=== PATIENT | female | born 1955 | race Caucasian/White ===

== ENCOUNTER 2023-01-18 09:30 | Outpatient (OUT) | payer OTHER, SELFPAY ==
--- NOTE | 2023-01-18 09:35 | CT_ITS ---
[address] [address] Patient Name: CHYNA NUR MRN: [id number] date: 1955 Sex: F Assigned Patient Location: CT Current Patient Location: CT Accession/Order Number: [id number] Exam Date: 01/18/2023 09:47 Report Date: 01/18/2023 10:57 At the request of: JOY STOLL Procedure: CT lung screening low-dose EXAMINATION: CT lung screening low-dose HISTORY: Nicotine dependence F17.210 COMPARISON: No relevant comparison available. TECHNIQUE: Axial, Coronal, and Sagittal images were created without the administration of IV contrast material. Dose reduction techniques were achieved by using automated exposure control and/or adjustment of mA and/or kV according to patient size and/or use of iterative reconstruction technique. FINDINGS: LUNGS: A few 3-4 mm nodules scattered within the lungs. Largest nodule is within superior aspect of left lower lobe, 5 mm. Minimal emphysematous changes. PLEURA: No mass, effusion, or pneumothorax. VASCULATURE: No abnormality. ANTONIA: No mass or pathologic adenopathy. MEDIASTINUM: No mass or pathologic adenopathy. CARDIAC: No enlargement, pericardial thickening, or significant calcification. AORTA: No aneurysm or dissection. CHEST WALL: No mass or axillary adenopathy BONES: No bone lesion or fracture. LIMITED ABDOMEN: No suspicious findings. Limited images of the upper abdomen. OTHER: Negative. IMPRESSION: 1. Lung-RADS Category 3- Probably benign. Probably benign finding(s)- short term follow up suggested; includes nodules with a low likelihood of becoming a clinically active cancer. Six month LDCT. Electronically authenticated by: RO ASHRAF Date: 01/18/2023 10:57
--- NOTE | 2023-01-18 09:35 | MM_ITS ---
Patient: CHYNA NUR Exam Date: 01/18/2023 : 1955 Gender:F Ordering : DR Patricia Perla M.D. Admission #: [id number] Family : Order #: [id number] CLICK HERE TO VIEW EXAM RADIOLOGY REPORT PROCEDURE: MM TOMOSYNTHESIS SCREENING BI COMPARISON: MAMMO SCREEN DIG LILLY, 07/13/2011. INDICATIONS: Screening mammogram Z12.31 Calculator Name NCI Breast Cancer Risk Assessment Tool 5 Year Breast Cancer Risk 1.40% Lifetime Breast Cancer Risk 4.90% Personal Breast Cancer No Personal Ovarian Cancer No Treatments None Family Cancers Sister with bone cancer at age 42. LOCATION: [facility] BREAST COMPOSITION: Heterogeneously dense,which may obscure small masses. FINDINGS: DIAGNOSTIC CATEGORY 1--NEGATIVE. RIGHT BREAST: No significant suspicious finding. No significant change has occurred. LEFT BREAST: No significant suspicious finding. No significant change has occurred. RECOMMENDATIONS: ROUTINE MAMMOGRAM AND CLINICAL EVALUATION IN 12 MONTHS. PLEASE NOTE: A NORMAL MAMMOGRAM DOES NOT EXCLUDE THE POSSIBILITY OF BREAST CANCER. A CLINICALLY SUSPICIOUS PALPABLE LUMP SHOULD BE BIOPSIED. Dictated by: Eduardo Esteban M.D. on 01/18/2023 at 15:08 Approved by: Eduardo Esteban M.D. on 01/18/2023 at 15:11
== END 2023-01-18 09:31 ==
LOC: CT 09:31
PROVIDERS: PCP Family Medicine; Visit Provider Family Medicine
DX: Z12.31 Encounter for screening mammogram for malignant neoplasm of breast (principal); F17.210 Nicotine dependence, cigarettes, uncomplicated; Z80.8 Family history of malignant neoplasm of other organs or systems
CPT/HCPCS: 71271; 77063; 77067

== ENCOUNTER 2023-05-04 11:43 | Outpatient (OUT) | payer OTHER, SELFPAY ==
[2023-05-04 12:07] LABS: SARS-CoV-2 Ag NEGATIVE (NEGATIVE)
[2023-05-04 15:09] LABS: SARS-CoV-2 NAA NOT DETECTED (NOT DETECTE)
== END 2023-05-04 11:44 | disposition home or self-care (01) ==
LOC: LAB 11:43
PROVIDERS: PCP Family Medicine; Visit Provider Family Medicine
DX: Z20.822 Contact with and (suspected) exposure to COVID-19 (principal)
CPT/HCPCS: 87635; 87811; U0003

== ENCOUNTER 2024-03-25 14:10 | Emergency (ER) | payer OTHER, SELFPAY ==
[2024-03-25 14:14] VITALS: BP 147/85; PULSE 104; TEMP 36.7; O2SAT 94; BMI 32.3
--- NOTE | 2024-03-25 14:23 | XR_ITS ---
The [address] [address] Patient Name: CHYNA NUR MRN: [id number] date: 1955 Sex: F Assigned Patient Location: ER Current Patient Location: ED.MAIN Accession/Order Number: [id number] Exam Date: 03/25/2024 14:40 Report Date: 03/25/2024 16:05 At the request of: RENETTA CRANE Procedure: XR wrist LT min 3V PROCEDURE: XR hand LT min 3V, XR wrist LT min 3V, XR forearm LT 2V COMPARISON: None. HISTORY: fall FINDINGS: BONES:Transverse extra-articular fracture proximal the proximal metaphysis of the second metacarpal with radial displacement of the diaphysis 3 mm in relation to the base. SOFT TISSUES:Negative. No visible soft tissue swelling. EFFUSION:None visible. OTHER: Negative. XR/XR wrist LT min 3V IMPRESSION: Acute displaced extra-articular fracture base of the second metacarpal No acute fracture of the forearm or carpal bones Electronically authenticated by: LISBETH ZHANG Date: 03/25/2024 16:05
--- NOTE | 2024-03-25 14:23 | XR_ITS ---
The [address] [address] Patient Name: CHYNA NUR MRN: [id number] date: 1955 Sex: F Assigned Patient Location: ER Current Patient Location: ED.MAIN Accession/Order Number: [id number] Exam Date: 03/25/2024 14:40 Report Date: 03/25/2024 16:05 At the request of: RENETTA CRANE Procedure: XR hand LT min 3V PROCEDURE: XR hand LT min 3V, XR wrist LT min 3V, XR forearm LT 2V COMPARISON: None. HISTORY: fall FINDINGS: BONES:Transverse extra-articular fracture proximal the proximal metaphysis of the second metacarpal with radial displacement of the diaphysis 3 mm in relation to the base. SOFT TISSUES:Negative. No visible soft tissue swelling. EFFUSION:None visible. OTHER: Negative. XR/XR hand LT min 3V IMPRESSION: Acute displaced extra-articular fracture base of the second metacarpal No acute fracture of the forearm or carpal bones Electronically authenticated by: LISBETH ZHANG Date: 03/25/2024 16:05
--- NOTE | 2024-03-25 14:23 | XR_ITS ---
The [address] [address] Patient Name: CHYNA NUR MRN: [id number] date: 1955 Sex: F Assigned Patient Location: ER Current Patient Location: ED.MAIN Accession/Order Number: [id number] Exam Date: 03/25/2024 14:40 Report Date: 03/25/2024 16:05 At the request of: RENETTA CRANE Procedure: XR forearm LT 2V PROCEDURE: XR hand LT min 3V, XR wrist LT min 3V, XR forearm LT 2V COMPARISON: None. HISTORY: fall FINDINGS: BONES:Transverse extra-articular fracture proximal the proximal metaphysis of the second metacarpal with radial displacement of the diaphysis 3 mm in relation to the base. SOFT TISSUES:Negative. No visible soft tissue swelling. EFFUSION:None visible. OTHER: Negative. XR/XR forearm LT 2V IMPRESSION: Acute displaced extra-articular fracture base of the second metacarpal No acute fracture of the forearm or carpal bones Electronically authenticated by: LISBETH ZHANG Date: 03/25/2024 16:05
--- NOTE | 2024-03-25 15:24 | ED.GENADUL1 ---
HPI HPI - General Adult General Chief complaint: Extremity Injury, Upper Stated complaint: FALL SWOLLEN HAND Time Seen by Provider: 03/25/24 14:21 History of Present Illness HPI narrative: The patient is coming today after she fell almost 2 days ago on her outstretched hand complaining of left hand pain, that she took a Percocet before arrival and she does not have a lot of pain right now Patient also have extensive swelling and she feels that the pain going up her arm not only in her hand Related Data Previous Rx's ?Medication ?Instructions ?Recorded diclofenac sodium 50 mg 50 mg PO Q12H PRN PAIN #14 tabs 03/25/24 tablet,delayed release Allergies Allergy/AdvReac Type Severity Reaction Status Date / Time Sulfa (Sulfonamide Allergy Severe tongue Verified 03/25/24 14:14 Antibiotics) swelling Opioid HPI Opioid Management Most Recent Opioid Data: No Data to Display Review of Systems ROS Status of ROS 10 or more systems reviewed and unremarkable except as noted in history and below Exam Narrative Exam Narrative: Nurses notes and vital signs reviewed and patient is not hypoxic. General: Well-appearing and in no apparent distress. Skin: Warm, dry, no pallor noted. No rash. Head: Normocephalic, atraumatic. Neck: Supple, non-tender. Eye: Pupils are equal, round and EOMI. No scleral icterus. Ears, Nose, Mouth, and Throat: TM are clear, no nasal mucosal hypertrophy. Oral mucosa is moist, no posterior oropharynx erythema, uvula is mid-line Cardiovascular: Regular Rate and Rhythm without murmur, gallop or rub. Respiratory: No accessory muscle use or respiratory distress. Lungs are clear to auscultation, no wheezing, rales or rhonchi Chest Wall: no tenderness Back: No midline thoracic or lumbar vertebral tenderness. No CVA tenderness Musculoskeletal: normal ROM, there is extensive edema of the left hand no tenderness upon palpation of the forearm and wrist, but the patient have swelling up to her fingers in addition to an ecchymosis just by the medial aspect of her thumb, there is no open wounds and the patient have no vascular injury detected within normal capillary refill GI: Abdomen is soft, non-distended. Normal bowel sounds. No masses appreciated. No tenderness to palpation. No rebound, guarding, or rigidity noted. Neurological: A&O x4. No cranial nerve dysfunction observed. No truncal ataxia. Moves all extremities. Sensation intact. Psychiatric: Cooperative and interactive. Normal mood and affect. Constitutional Vital Signs, click to edit/add: Last Vital Signs Temp 98.1 F 03/25/24 14:14 Pulse 104 H 03/25/24 14:14 Resp 20 03/25/24 14:14 BP 147/85 H 03/25/24 14:14 Pulse Ox 94 L 03/25/24 14:14 O2 Del Method Room Air 03/25/24 14:14 Course Vital Signs Vital signs: Vital Signs Temperature 98.1 F 03/25/24 14:14 Pulse Rate 104 H 03/25/24 14:14 Respiratory Rate 03/25/24 14:14 Blood Pressure 147/85 H 03/25/24 14:14 Pulse Oximetry 94 L 03/25/24 14:14 Oxygen Delivery Method Room Air 03/25/24 14:14 Temperature 98.1 F 03/25/24 14:14 Pulse Rate 104 H 03/25/24 14:14 Respiratory Rate 03/25/24 14:14 Blood Pressure 147/85 H 03/25/24 14:14 Pulse Oximetry 94 L 03/25/24 14:14 Oxygen Delivery Method Room Air 03/25/24 14:14 Medical Decision Making MDM Narrative Medical decision making narrative: The patient x-ray shows obvious fracture of the second metacarpal base with a obvious displacement The patient case was discussed with Dr. Hickman she will mostly need surgery and right now put her in a volar splint and sling and she was discharged home with Juan to continue using her oxycodone at home and follow-up with Dr. Hickman as outpatient Elevation and rest The patient is to follow up with primary care physician in next 2-3 days or to return to the emergency department should any of the signs or symptoms worsen or new symptoms develop. The patient agrees with the following Diagnosis and Treatment plan and the patient will be discharged home. Discharge Plan Discharge Stand Alone Forms: Work/School Release, Portal Instructions Chief Complaint: Extremity Injury, Upper Clinical Impression: Fracture of metacarpal Qualifiers: Encounter type: initial encounter Metacarpal bone: second Fracture type: closed Metacarpal location: base Fracture alignment: displaced Laterality: left Qualified Code(s): S62.311A - Displaced fracture of base of second metacarpal bone, left hand, initial encounter for closed fracture Patient Disposition: Home, Self-Care Time of Disposition Decision: 16:22 Condition: Good Prescriptions / Home Meds: New diclofenac sodium 50 mg tablet,delayed release (DR/EC) 50 mg PO Q12H PRN (Reason: PAIN ) Qty: 14 0RF Print Language: Citizen Of [place] Instructions: Hand Fracture (DC), Splint Care (ED) Referrals: Eduardo Hickman MD [Physician] - As soon as possible BARRON LIVE [Primary Care Provider] - 1 week
[2024-03-25] MEDS: KETOROLAC TROMETHAMINE 30 MG/ML VIAL IM (16:39)
[2024-03-25 16:41] VITALS: BP 127/76; PULSE 92; O2SAT 94
== END 2024-03-25 16:44 | disposition home or self-care (01) ==
PROVIDERS: Emergency Provider Emergency Medicine; PCP Family Medicine
DX: S62.311A Displaced fracture of base of second metacarpal bone, left hand, initial encounter for closed fracture (principal); W19.XXXA Unspecified fall, initial encounter
CPT/HCPCS: 29125; 73090; 73110; 73130; 96372; 99285; J1885

== ENCOUNTER 2024-03-29 13:03 | Outpatient (OUT) | payer OTHER, SELFPAY ==
--- OUTSIDE RECORDS SUMMARY | 2024-03-29 13:24 | XMS_ITS | CCD ---
Author Organization [facility] Care Team Providers Care Cloth Burler Name Role Phone DR PATRICIA PERLA Admitting Unavailable DODIE, DR PATRICAI Carlson Attending Unavailable DR PATRICIA PERLA Primary Care Unavailable WEST, DR LISBETH Parrish Consulting Unavailable DODIE, DR PATRICIA Carlson Consulting Unavailable Patricia Perla Tiffany Núñez Attending Unavailable Tiffany Núñez Attending Unavailable Tiffany Núñez Attending Unavailable Allergies Allergy Classification Reported Allergen(s) Allergy Type Date of Onset Reaction(s) Facility (1 source) Sulfonamides (Antibiotic) Drug allergy (disorder) 02-01-20 21 [facility] (6 sources) Clarithromycin Drug Allergy 12-04-19 24 Unknown, Unknown Reaction [facility] (18 sources) Nitrofurantoin Drug Allergy 12-04-19 24 Unknown, Unknown Reaction [facility] (17 sources) Sulfacetamide / Sulfur Drug Allergy Unknown [facility] Other (17 sources) Substance with sulfonamide structure and antibacterial mechanism of action (substance) Drug allergy Unknown [facility] Other (14 sources) Sulfamethoxazole / Trimethoprim Drug Allergy 04-08-20 13 Unknown [facility] Other (2 sources) Allergies Reconciled Propensity to adverse reactions Unknown [facility] Other (14 sources) Biaxin *MACROLIDES* Propensity to adverse reactions 08-16-19 17 Unknown [facility] Other (2 sources) patient allergy list reviewed by nurse or physicia Propensity to adverse reactions 11-30-19 19 Comment:Done [facility] Other (1 source) Sulfacetamide Drug Allergy 12-04-19 24 Unknown Reaction [facility] (1 source) Sulfamethoxazole Drug Allergy 12-04-19 24 Unknown Reaction [facility] (1 source) Sulfonamides (Antibiotic) Allergy to substance 12-04-19 Unknown Reaction [facility] (1 source) Sulfur Drug Allergy 12-04-19 24 Unknown Reaction [facility] (1 source) Trimethoprim Drug Allergy 12-04-19 24 Unknown Reaction [facility] (1 source) Sulfonamides (Antibiotic); Translations: [sulfa drugs] Propensity to adverse reactions (disorder) [facility] Medications Current Medications Medication Drug Class(es) Dates Sig (Normalized) Sig (Original) acetaminophen 325 mg / HYDROcodone bitartrate 10 mg oral tablet (20 sources) Opioid Agonist Start: 09-21-2023 End: 11-30-2023 take 1 tablet by mouth three times daily Hydrocodone-Aceta minophen Active 1 TAB PO Three times daily 45 November 30, 2023 Start: 09-08-2023 take 1 tablet by armida th every eight hours HYDROcodone-Acetaminophen 10-325 MG 1 tablet as needed Orally tid for 30 days Aug, Active Start: 08-10-2023 take 1 tablet by armida th every eight hours HYDROcodone-Acetaminophen 10-325 MG 1 tablet as needed Orally tid for 30 days Jul, Active Start: 07-14-2023 take 1 tablet by armida th twice daily as needed HYDROcodone-Acetaminophen 10-325 MG 1 tablet as needed Orally twice daily for 30 days Jun, Active Start: 07-14-2023 take 1 tablet by armida th twice daily as needed HYDROcodone-Acetaminophen 10-325 MG 1 tablet as needed Orally twice daily for 30 days Jun, Active Start: 06-15-2023 take 1 tablet by armida th twice daily as needed HYDROcodone-Acetaminophen 10-325 MG 1 tablet as needed Orally twice daily May, Active Start: 04-19-2023 take 1 tablet by armida th twice daily as needed HYDROcodone-Acetaminophen 10-325 MG 1 tablet as needed Orally twice daily for 30 days Mar, Active Start: 03-22-2023 take 1 tablet by armida th twice daily as needed HYDROcodone-Acetaminophen 10-325 MG TAKE ONE TABLET BY MOUTH TWICE A DAY NEEDED Feb, Active Start: 02-23-2023 take 1 tablet by armida th twice daily as needed HYDROcodone-Acetaminophen 10-325 MG TAKE ONE TABLET BY MOUTH TWICE A DAY NEEDED for 30 days Jan, Active Start: 01-26-2023 take 1 tablet by armida th twice daily as needed HYDROcodone-Acetaminophen 10-325 MG TAKE ONE TABLET BY MOUTH TWICE A DAY NEEDED for 30 days Dec, Active Start: 12-28-2022 Start: 12-28-2022 take 1 tablet by armida th twice daily as needed HYDROcodone-Acetaminophen 10-325 MG TAKE ONE TABLET BY MOUTH TWICE A DAY NEEDED for 30 days November, Active [id number] 200 actuat albuterol 0.09 mg/actuat metered dose inhaler (10 sources) beta2-Adrenergic Agonist Start: 06-28-2017 take 2 puff(s) by inhalation every four hours as needed Albuterol Sulfate HFA 108 (90 Base) MCG/ACT 2 puffs as needed Inhalation every 4 hrs May, Active Start: 06-28-2017 take 2 puff(s) by in halation every four hours as needed Albuterol Sulfate HFA 108 (90 Base) MCG/ACT 2 puffs as needed Inhalation every 4 hrs May, Active Start: 06-28-2017 ALPRAZolam 1 mg oral tablet (20 sources) Benzodiazepine Start: 09-21-2023 End: 11-30-2023 take 1 tablet by mouth twice daily Alprazolam Active 1 MG PO Twice daily 60 November 30, 2023 1:06pm [employer] tablet Orally Twice a day; Note: Source Status: Refill; Refills: 0; Qty: 60 Tablet; Provider: Dodie Carlson Start: 09-08-2023 take 1 tablet by armida th every twelve hours ALPRAZolam 1 MG 1 tablet Orally Twice a day for 30 days Aug, Active Start: 08-10-2023 take 1 tablet by armida th every twelve hours ALPRAZolam 1 MG 1 tablet Orally Twice a day for 30 days Jul, Active Start: 07-14-2023 take 1 tablet by armida th every twelve hours ALPRAZolam 1 MG 1 tablet Orally Twice a day for 30 days Jun, Active Start: 12-15-2023 take 1 tablet by armida th every twelve hours ALPRAZolam 1 MG 1 tablet Orally Twice a day for 30 days Jun, Active Start: 06-15-2023 take 1 tablet by armida th every twelve hours ALPRAZolam 1 MG 1 tablet Orally Twice a day May, Active Start: 04-19-2023 take 1 tablet by armida th every twelve hours ALPRAZolam 1 MG 1 tablet Orally Twice a day for 30 days Mar, Active Start: 03-22-2023 take 1 tablet by armida th every twelve hours ALPRAZolam 1 MG 1 tablet Orally Twice a day Feb, Active Start: 02-23-2023 take 1 tablet by armida th every twelve hours ALPRAZolam 1 MG 1 tablet Orally Twice a day for 30 days Jan, Active Start: 01-26-2023 take 1 tablet by armida th every twelve hours ALPRAZolam 1 MG 1 tablet Orally Twice a day for 30 days Dec, Active Start: 12-28-2022 take 1 tablet by armida th every twelve hours amoxicillin 875 mg / clavulanate 125 mg oral tablet (2 sources) Penicillin-class Antibacterial Start: 09-29-2023 End: 12-04-2023 take 1 tablet by mouth twice daily Amoxicillin-Pot Clavulanate Active 1 TAB PO Twice daily December 04, 2023 10:32am azithromycin 250 mg oral tablet (3 sources) Macrolide Antimicrobial Start: 05-04-2023 Azithromycin 250 MG as directed Orally 2 tabs po today, then 1 tab daily x 4 more days for Apr, Active benazepril hydrochloride 20 mg / hydroCHLOROthiazide 25 mg oral tablet (19 sources) Thiazide Diuretic, Angiotensin Converting Enzyme Inhibitor Start: 09-18-2023 End: 09-18-2023 take 1 tablet by mouth once daily Benazepril-Hydroch lorothiazide Active 1 TAB PO Daily September 18, 2023 12:42pm take 1 tablet by armida th once daily as needed Benazepril-hydroCHLOROthiazide 20-25 MG TAKE ONE TABLET BY MOUTH DAILY NEEDED for 30 Active benzonatate 200 mg oral capsule (3 sources) Non-narcotic Antitussive Start: 05-04-2023 take 1 capsule by mouth every eight hours Benzonatate 200 MG 1 capsule Orally Three times a day for 10 day(s) Apr, Active fluticasone propionate 0.05 mg/actuat metered dose nasal spray (10 sources) Corticosteroid Start: 06-28-2017 take 1 spray(s) nasal route once daily Fluticasone Propionate 50 MCG/ACT 1 spray in each nostril Nasally Once a day for 21 days May, Active Start: 06-28-2017 120 actuat fluticasone propionate 0.115 mg/actuat / salmeterol 0.021 mg/actuat metered dose inhaler (6 sources) Corticosteroid, beta2-Adrenergic Agonist take 2 puff(s) by inhalation twice daily Advair HFA 115-21 MCG/ACT 2 puffs Inhalation Twice a day for 30 days Active PARoxetine hydrochloride 40 mg oral tablet (18 sources) Serotonin Reuptake Inhibitor Start: 024 take 1 tablet by mouth once daily Paroxetine Hcl Active MG PO September 21, 2023 1:00am [employer]: TAKE 1 TABLET BY MOUTH DAILY DIRECTED; Note: Source Status: Continue; Provider: Dodie Gomez ( ) take 1 tablet by mouth once suki y PARoxetine HCl 40 mg TAKE 1 TABLET BY MOUTH DAILY DIRECTED Active Completed/Discontinued Medications Medication Drug Class(es) Dates Sig (Normalized) Sig (Original) phentermine hydrochloride 37.5 mg oral tablet (8 sources) Sympathomimetic Amine Anorectic Start: 09-21-2023 End: 09-29-2023 take 1 tablet by mouth once daily 30 minutes after breakfast Phentermine (Adipex-P) 37.5 mg tablet Discontinued 37.5 MG PO Daily September 21, 2023 1:00am September 29, 2023 11:28am must administer 30 minutes before or 1-2 hours after breakfast Start: 03-27-2023 take 1 tablet by armida once daily before breakfast Adipex-P 37.5 MG 1 tablet before breakfast Orally Once a day for 30 days Feb, Active Problems Active Problems Problem Classification Problem Date Documented Da te Episodic/Chronic Acute bronchitis (2 sources) Acute bronchitis; Translations: [Acute bronchitis due to other specified organisms] Episodic Anxiety disorders (20 sources) Generalized anxiety disorder; Translations: [Generalized anxiety disorder] Onset: 12-27-2013 Chronic Chronic obstructive pulmonary disease and bronchiectasis (12 sources) Acute exacerbation of chronic obstructive airways disease; Translations: [Obstructive chronic bronchitis, with (acute) exacerbation] Onset: 08-07-2018 Chronic Chronic obstructive pulmonary disease and bronchiectasis (1 source) Bronchitis, not specified as acute or chronic Episodic E Codes: Natural/environment (2 sources) Bitten by cat, initial encounter; Translations: [Cat bite] Episodic Essential hypertension (5 sources) Essential hypertension; Translations: [Essential (primary) hypertension] Onset: 12-27-2013 09-21-2023 Chronic Joint disorders and dislocations; trauma-related (20 sources) Traumatic arthropathy of the ankle and/or foot; Translations: [Traumatic arthropathy, right ankle and foot] Onset: 12-27-2013 Chronic Nonspecific chest pain (6 sources) Other chest pain; Translations: [Chest pain] Onset: 05-05-2022 Episodic Other circulatory disease (2 sources) Elevated blood-pressure reading without diagnosis of hypertension; Translations: [Elevated blood-pressure reading, without diagnosis of hypertension] Episodic Other lower respiratory disease (12 sources) Nodule of lung; Translations: [Solitary pulmonary nodule] Episodic Other lower respiratory disease (1 source) Solitary pulmonary nodule Episodic Other lower respiratory disease (2 sources) Other nonspecific abnormal finding of lung field Episodic Other nutritional; endocrine; and metabolic disorders (4 sources) Obese class I; Translations: [Body mass index (BMI) 34.0-34.9, adult] Chronic Other nutritional; endocrine; and metabolic disorders (2 sources) Obesity; Translations: [Obesity, unspecified] Chronic Other nutritional; endocrine; and metabolic disorders (14 sources) Body mass index 30+ - obesity; Translations: [Body mass index 31.0-31.9, adult] Onset: 10-03-2017 Chronic Other nutritional; endocrine; and metabolic disorders (12 sources) Obesity caused by energy imbalance; Translations: [Other obesity due to excess calories] Chronic Other nutritional; endocrine; and metabolic disorders (1 source) Other obesity due to excess calories Chronic Other nutritional; endocrine; and metabolic disorders (1 source) Body mass index (BMI) 33.0-33.9, adult Chronic Other screening for suspected conditions (not mental disorders or infectious disease) (1 source) Encounter for screening mammogram for malignant neoplasm of breast Episodic Other upper respiratory disease (17 sources) Seasonal allergy; Translations: [Other seasonal allergic rhinitis] Chronic Other upper respiratory disease (2 sources) Seasonal allergic rhinitis; Translations: [Other seasonal allergic rhinitis] Chronic Other upper respiratory infections (5 sources) Acute sinusitis; Translations: [Acute sinusitis, unspecified] Onset: 04-08-2013 10-16-2023 Episodic Pneumonia (except that caused by tuberculosis or sexually transmitted disease) (2 sources) Pneumonia; Translations: [Pneumonia, unspecified organism] Episodic Residual codes; unclassified (2 sources) Family history of diabetes mellitus; Translations: [Family history of diabetes mellitus] Episodic Substance-related disorders (19 sources) Nicotine dependence; Translations: [Nicotine dependence, cigarettes, uncomplicated] Chronic Substance-related disorders (2 sources) Nondependent opioid abuse ; Translations: [Opioid use, unspecified, uncomplicated] Episodic Unclassified (2 sources) Long-term current use of drug therapy; Translations: [Long-term (current) use of other medications] Onset: 04-07-2016 Unclassified (2 sources) Exposure to acute respiratory syndrome coronavirus 2; Translations: [Contact with and (suspected) exposure to COVID-19] Urinary tract infections (2 sources) Urinary tract infectious disease; Translations: [Urinary tract infection, site not specified] Episodic Past or Other Problems Problem Classification Problem Date Documented Da te Episodic/Chronic Allergic reactions (4 sources) Inflammatory dermatosis; Translations: [Dermatitis, unspecified] Onset: 09-12-2016 Episodic Genitourinary symptoms and ill-defined conditions (2 sources) Dysuria; Translations: [Dysuria] Onset: 10-30-2015 Episodic Otitis media and related conditions (2 sources) Acute non-suppurative otitis media - serous; Translations: [Acute serous otitis media, unspecified ear] Onset: 04-08-2013 Episodic Residual codes; unclassified (2 sources) Tobacco user; Translations: [Nondependent tobacco use disorder] Onset: 05-29-2018 Episodic Superficial injury; contusion (2 sources) Contusion of foot; Translations: [Contusion of unspecified foot, initial encounter] Onset: 03-04-2015 Episodic Results Test Name Value Interpretation Reference Range Facil ity Medication Consenton 024 Medication Consent [id number] .00TIFF [facility] Ambulatory Visit Summaryon 0 01-09-2024 Ambulatory Visit Summary NIYA NUR :1955 Visit Date:01/09/2024 Ambulatory Visit Instructions Your Diagnosis Hypertension Anxiety Chronic pain of right lower extremity BMI 35.0-35.9,adult Smoker Your Care Team Attending Physician - Tiffany Zuñiga Primary Care Physician - Tiffany Zuñiga This Is Your Medications List acetaminophen-hydroco done (acetaminophen-hydroc odone 325 mg-10 mg oral tablet) alprazolam (alprazolam 1 mg Tab) benazepril-hydrochlor othiazide (benazepril-hydrochlo rothiazide 20 mg-25 mg oral tablet) paroxetine (paroxetine 40 mg Tab) Procedures Performed Appendectomy, delivery, Hysterectomy and bilateral salpingo-oophorectomy sample. Discharge Vitals Heart Rate (Peripheral) 112 Respiratory Rate 18 Blood Pressure 118/78 Height 163.5 cm Height 64 in Weight 94.7 kg Weight 208.34 lb BMI 35.43 What to do next Scheduled Follow-Up Appointments Monday 8:00 AM EDT With: Where: [facility] Normal [address] [place] [address]- \.br\ Medications\.br\ What How Much When Instructions\.br\ Changed benazepril-hydroc hlorothiazide (benazepril-hydro chlorothiazide 20 mg-25 mg oral tablet) 1 Tablets By Mouth Every day TAKE 1 TABLET BY MOUTH EVERY DAY Pickup at [facility]/pharmacy #[id number]\.br\ Changed paroxetine (paroxetine 40 mg Tab) 1 Tablets By Mouth Every day TAKE 1 TABLET BY MOUTH EVERY DAY Pickup at [facility]/pharmacy #[id number]\.br\ Unchanged acetaminophen-hyd rocodone (acetaminophen-hy drocodone 325 mg-10 mg oral tablet) 1 Tablets By Mouth 3 times a day as needed for as needed for pain TAKE 1 TABLET BY MOUTH 3 TIMES A DAY NEEDED FOR PAIN FOR 21 DAYS \.br\ Unchanged alprazolam (alprazolam 1 mg Tab) 1 Tablets By Mouth 2 times a day TAKE 1 TABLET BY MOUTH TWICE A DAY NEEDED FOR ANXIETY FOR 15 DAYS *DNF * \.br\ Pharmacy Information\.br\ [id number]: [address] [place], [place] [id number] [phone]\.br\ Allergies\.br\ sulfa drugs (Tongue swelling)\.br\ Problems\.br\ Ongoing - Any problem that you are currently receiving treatment for.\.br\ Anxiety\.br\ Chronic pain of right lower extremity\.br\ HTN (hypertension)\.b r\ Hypertension\.br\ Patient Survey\.br\ You may receive a survey via text or e-mail asking about your office visit. Please share your experience with us by completing your survey. We appreciate your feedback and thank you for choosing us for your care.\.br\ \.br\ [facility] Auth for Release of Medical Recordson 01-09-2024 Auth for Release of Medical Records [id number]. 00TIFF [facility] Family Medicine Office/Clini c Noteon 01-09-2024 Family Medicine Office/Clinic Note HPI Staff Niya is a 68 year old female presenting to establish care Establish Care: History: Any previous diagnosis: Anxiety , HTN, Chronic leg pain History of seeing any specialist: When was your last doctors visit: Last provider: Dr Perla Any recent labs: had some at [facility] unsure what was drawn BEKAH: 8 Health Maintenance UTD: Colonoscopy: 20 years ago normal Mammogram: Fall 2022 normal [facility] Pelvic/Pap: nothing since hysterectomy 26 years ago Acute: Current issues/complaints: Needs refills on paroxetine and benazepril-HCTZ, no concerns History of Present Illness pt presents today to establish care Review of Systems PHQ Score Initial Depression Screen Score: 0 SCORE Physical Exam Vitals & Measurements HR: 112(Peripheral) RR: 18 BP: 118/78 SpO2: 94% HT: 64 in HT: 163.5 cm WT: 94.7 kg WT: 208.34 lb BMI: 35.43 General: alert, no acute distress ENMT: oral mucosa moist, no pharyngeal erythema or exudate Cardiovascular: regular rate and rhythm, normal peripheral perfusion Respiratory: Lungs CTA, respirations non labored Extremities: no deformity, no trauma Neurological: oriented x 4, LOC appropriate for age, CN II-XII intact, motor strength equal & normal bilaterally, speech normal Assessment/Plan 1. Hypertension (I10: Essential (primary) hypertension) BP at goal today. will refill meds today. she had labs done recently at [facility] will obtain those for her chart. RTC 3 months for med check/drug screen 2. Anxiety (F41.9: Anxiety disorder, unspecified) will refill meds 3. Chronic pain of right lower extremity (M79.604: Pain in right leg) pt had an injury with severe fracture to right lower leg and it did not heal correctly. Dr. Perla has been handling her pain management but at last visit, she tested positive for amphetamines and they dismissed her. pt had gone to a green party and took lyrica and didn't realize it would show in her urine drug screen. pt is very upset and embarrassed. medication agreement discussed and signed. pt is not due for refills at this time 4. BMI 35.0-35.9,adult (Z68.35: Body mass index [BMI] 35.0-35.9, adult) BMI education complete 5. Smoker (F17.200: Nicotine dependence, unspecified, uncomplicated) consider not smoking Orders: benazepril-hydrochlor othiazide, 1 tab(s), Oral, Daily, 90 tab(s), Refill(s) 3, TAKE 1 TABLET BY MOUTH EVERY DAY, [id number], 163.5, cm, 01/09/24 13:01:00 EDT, Height/Length Dosing, 94.7, kg, 01/09/24 13:01:00 EDT, Weight Dosing paroxetine, 40 mg = 1 tab(s), Oral, Daily, TAKE 1 TABLET BY MOUTH EVERY DAY, # 90 tab(s), Refills(s) 3, Pharmacy: [id number], 163.5, cm, 01/09/24 13:01:00 EDT, Height/Length Dosing, 94.7, kg, 01/09/24 13:01:00 EDT, Weight Dosing Follow-up No qualifying data available Problem List/Past Medical History Ongoing Anxiety Chronic pain of right lower extremity HTN (hypertension) Hypertension Historical No qualifying data Procedure/Surgical History Appendectomy, delivery, Hysterectomy and bilateral salpingo-oophorectomy sample. Medications acetaminophen-hydroco done 325 mg-10 mg oral tablet, 1 tab(s), Oral, TID, PRN alprazolam 1 mg Tab, 1 mg= 1 tab(s), Oral, BID benazepril-hydrochlor othiazide 20 mg-25 mg oral tablet, 1 tab(s), Oral, Daily, 3 refills paroxetine 40 mg Tab, 40 mg= 1 tab(s), Oral, Daily, 3 refills Allergies sulfa drugs (Tongue swelling) Social History Alcohol Current, Beer, Liquor, 1-2 times per month, 01/09/2024 Tobacco 10 or more cigarettes (1/2 pack or more)/day in last 30 days Tobacco Use:. Cigarettes, Ready to change: No. Household tobacco concerns: No., 01/09/2024 [facility] Comment on above: Result Comment: Elec tronically Signed By: Tiffany Zuñiga\.br\Date and Time Signed: 01/09/24 13:31 EDT XR RIBS LT PA Sean 2 XR RIBS LT PA CH EXAMINATION: XR RIBS LT PA CH HISTORY: Chest pain COMPARISON: No relevant comparison available. FINDINGS: LUNGS: Right basilar infiltrate obscuring the cardiophrenic angle PLEURA: No pneumothorax, effusion, or pleural thickening. MEDIASTINUM: No visible mass or adenopathy. CARDIAC: No cardiomegaly or cardiac silhouette abnormality. RIBS: No acute rib fracture OTHER: Negative. IMPRESSION: Right middle lobe infiltrate, consider pneumonia No acute rib fracture Electronically authenticated by: LISBETH ZHANG Date: 2022-05-05 19:08 [facility] Vital Signs Date Time Vital Sign Value Performing Clinician Facility 12-04-2023 10:06-040 Body height 170.18 cm [facility] 12-04-2023 10:06-0400 Body mass index (BMI) [Ratio] 33 kg/m2 [facility] 12-04-2023 10:06040 Body weight 95.76 kg [facility] 12-04-2023 10:06-0400 Diastolic blood pressure 67 mm[Hg] [facility] 12-04-2023 10:06040 Heart rate 99 /min [facility] 12-04-2023 10:06-0400 Systolic blood pressure 102 mm[Hg] [facility] 09-29-2023 10:10-0500 Body height 170.18 cm [facility] 09-29-2023 10:10-0500 Body mass index (BMI) [Ratio] 33.4 kg/m2 [facility] 09-29-2023 10:10-0500 Body weight 96.72 kg [facility] 09-29-2023 10:10-0500 Diastolic blood pressure 69 mm[Hg] [facility] 09-29-2023 10:10-0500 Heart rate 94 /min [facility] 09-29-2023 10:10-0500 Systolic blood pressure 108 mm[Hg] [facility] 06-27-2023 10:00-0500 Body height 170.18 cm Patricia Perla Other [facility] [employer] Other 06-27-2023 10:00-0500 Body mass index (BMI) [Ratio] 32.42 kg/m2 Patricia Perla Other [facility] Other 06-27-2023 10:00-0500 Body weight 93.9 kg Patricia Perla Other [facility] Other 06-27-2023 10:00-0500 Diastolic blood pressure 73 mm[Hg] Patricia Perla Other [facility] Other 06-27-2023 10:00-0500 Systolic blood pressure 120 mm[Hg] Patricia Perla Other [facility] Other 03-27-2023 10:00-0400 Body height 170.18 cm Patricia Perla Other [facility] [employer] Other 03-27-2023 10:00-0400 Body mass index (BMI) [Ratio] 33.67 kg/m2 Patricia Perla Other [facility] Other 03-27-2023 10:00-0400 Body weight 97.52 kg Patricia Perla Other [facility] Other 03-27-2023 10:00-0400 Diastolic blood pressure 67 mm[Hg] Patricia Perla Other [facility] Other 03-27-2023 10:00-0400 Systolic blood pressure 98 mm[Hg] Patricia Perla Other [facility] Other 12-28-2022 10:30-0400 Body height 170.18 cm Patricia Perla Other [employer] Other 12-28-2022 10:30-0400 Body mass index (BMI) [Ratio] 33.51 kg/m2 Patricia Perla Other [facility] Other 12-28-2022 10:30-0400 Body weight 97.07 kg Patricia Perla Other [facility] Other 12-28-2022 10:30-0400 Diastolic blood pressure 74 mm[Hg] Patricia Perla Other [facility] [employer] Other 12-28-2022 10:30-0400 Systolic blood pressure 115 mm[Hg] Patricia Perla Other [employer] Other Encounters Encounter Date Encounter Type Care Provider Facility Start: 04-09-2024 ambulatory Tiffany L Niya Facility: [facility] Start: 01-09-2024 End: 01-09-2024 ambulatory Tiffany L Niya Facility:[facility] Mackenzie valencia Start: 01-08-2024 ambulatory Tiffany Niya Facility:[facility] Start: 12-04-2023 End: 12-04-2023 ambulatory [facility] Work Phone: Start: 12-04-2023 End: 12-04-2023 Patient encounter procedure [facility] Work Phone: Start: 09-29-2023 End: 09-29-2023 Patient encounter procedure [facility] Work Phone: Start: 09-18-2023 Non-patient / Non-visit [facility] [employer] Work Phone: Start: 09-06-2023 End: 09-06-2023 ambulatory Patricia Dodie Other [employer] Other Start: 09-06-2023 Telephone encounter Patricia Dodie [facility] Start: 08-10-2023 End: 08-10-2023 ambulatory Patricia Perla Other [employer] Other Start: 08-10-2023 Telephone encounter Patricia Dodie [facility] Start: 07-12-2023 End: 07-12-2023 ambulatory Patricia Dodie Other [employer] Other Start: 07-12-2023 Telephone encounter Patricia Dodie [facility] Start: 07-03-2023 End: 07-03-2023 ambulatory Patricia Dodie Other [employer] Other Start: 07-03-2023 Telephone encounter Patricia Dodie [facility] Start: 06-29-2023 End: 06-29-2023 ambulatory Patricia Dodie Other [employer] Other Start: 06-29-2023 Telephone encounter Patricia Perla [facility] Start: 06-28-2023 End: 06-28-2023 ambulatory Patricia Dodie Other [employer] Other Start: 06-28-2023 Telephone encounter Patricia Dodie [facility] Start: 06-27-2023 End: 06-27-2023 ambulatory Patricia Dodie Other [employer] Other Start: 06-27-2023 Office outpatient vi sit 25 minutes Patricia Perla [facility] Start: 06-15-2023 End: 06-15-2023 ambulatory Patricia Perla Other [employer] Other Start: 06-15-2023 Telephone encounter Patricia Perla [facility] Start: 05-04-2023 (Televisit) Televisit Patricia Perla [facility] Start: 05-04-2023 End: 05-04-2023 ambulatory Patricia Dodie Other [employer] Other Start: 05-04-2023 Telephone encounter Patricia Perla [facility] Start: 04-19-2023 End: 04-19-2023 ambulatory Patricia Dodie Other [employer] Other Start: 04-19-2023 Telephone encounter Patricia Perla [facility] Start: 03-27-2023 End: 03-27-2023 ambulatory Patricia Perla Other [employer] Other Start: 03-27-2023 Office outpatient vi sit 15 minutes Patricia Perla [facility] Start: 03-21-2023 End: 03-21-2023 ambulatory Patricia Perla Other [employer] Other Start: 03-21-2023 Telephone encounter Patricia Perla [facility] Start: 02-21-2023 End: 02-21-2023 ambulatory Patricia Perla Other [employer] Other Start: 02-21-2023 Telephone encounter Patricia Perla [facility] Start: 01-26-2023 End: 01-26-2023 ambulatory Patricia Perla Other [employer] Other Start: 01-26-2023 Telephone encounter Patricia Perla [facility] Start: 01-19-2023 End: 01-19-2023 ambulatory Patricia Dodie Other [employer] Other Start: 01-19-2023 Telephone encounter Patricia Dodie [facility] Start: 12-28-2022 End: 12-28-2022 ambulatory Patricia Perla Other [employer] Other Start: 12-28-2022 Office outpatient vi sit 25 minutes Patricia Dodie [facility] Start: 05-05-2022 Adult health examination Patricia Dodie Other [employer] Other Start: 05-05-2022 Problem, abnormal examination Patricia Dodie Other [employer] Other Start: 05-05-2022 End: 05-06-[address] PATRICIA PERLA Facility: Procedures Date Procedure Procedure Detail Performing Clinician Start: 05-29-2018 Screening for malign ant neoplasm of colon Patricia Perla Other Start: 08-16-2016 Screening mammography Lester Perla Other Screening for malign ant neoplasm of breast Patricia Perla Other Payers Date Payer Category Payer Unknown [id number] 1955 Unknown [id number] 1955 Unknown [id number] 1955 Unknown [id number] 1955 Unknown [id number] Unknown [id number] [place] [facility] [id number] Unknown [employer] [id number] Social History Date Type Detail Facility Unknown if ever smoked [employer] Other Sex Assigned At Sex Assigned At Bir th [employer] Other Start: 09-18-2023 Tobacco smoking status NHIS Smoker (finding) [facility] Start: 1955 Sex Assigned At Female F [facility] Clinical Notes 12-28-2022 to 09-06-2023 Note Date & Type Note Facility 09-06-2023 Evaluation note Encounter Date Diagnosis Assessment Notes Aug, Traumatic arthropathy, 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) Aug, Generalized anxiety disorder (ICD-10 - F41.1) [employer] Other 01-11-2024 Evaluation note* Encounter Date Diagnosis Assessment Notes Treatment Notes Treatment Clinical Notes Jul, Traumatic arthropathy, 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) Jul, Generalized anxiety disorder (ICD-10 - F41.1) [employer] Other 12-13-2023 Evaluation note* Encounter Date Diagnosis Assessment Notes Treatment Notes Treatment Clinical Notes Jun, Traumatic arthropathy, 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) Jun, Generalized anxiety disorder (ICD-10 - F41.1) [employer] Other 11-30-2023 Evaluation note* Encounter Date Diagnosis Assessment Notes Treatment Notes Treatment Clinical Notes May, COPD, moderate (ICD-10 - J44.9) [employer] Other 11-29-2023 Evaluation note* Encounter Date Diagnosis Assessment Notes Treatment Notes Treatment Clinical Notes May, Lung nodules (ICD-10 - R91.8) [employer] Other 11-28-2023 Evaluation note* Encounter Date Diagnosis Assessment Notes Treatment Notes Treatment Clinical Notes May, Traumatic arthropathy, 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 Keep med in safe place May, Generalized anxiety disorder (ICD-10 - F41.1) Presently on medications. Discussed stressors. Suggested counseling/therapy as well. May, Lung nodules (ICD-10 - R91.8) Due for 6 month recheck. May, COPD, moderate (ICD-10 - J44.9) Pt agrees to start controller inhaler. 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 ER if symptoms worsen. 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 Pt to start Adipex daily. Medication is a stimulant. May cause you to be jittery or constipated. Take in the morning, may also take stool softener daily as needed. Continue to eat a healthy well balanced diet and continue work-out regimine. Pt aware that this is not a cure for obesity but a tool used to help them during their weight loss plateau. Pt aware that they need to continue to work hard at weight loss or the weight will be regained. Side effects discussed and understood. Pt education printed and discussed. Pt notified of prescribing schedule with 30 day dispensing, no refills, for up to 12 weeks, with a 6 month break in-between treatments. Id SOB, CP, mood changes, tachycardia, HTN, headaches, blurred vision occur, go to ER and Follow-up with me immediately. Feb, Body mass index [BMI] 33.0-33.9, adult (ICD-10 - Z68.33) Feb, Left lower lobe pulmonary nodule (ICD-10 - R91.1) Reviewed LDCT from December - with a few small nodules the radiologist recommends a repeat CT in 6 months - Jun. Pt understands screening and reassurance provided. 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 Feb, Generalized anxiety disorder (ICD-10 - F41.1) Pt states her symptoms are controlled on med presently. 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 Never fills early. Has been on med for 10+ years. REviewed and signed pain contracts. November, Nicotine dependence, cigarettes, uncomplicated (ICD-10 - F17.210) agrees to LDCT November, Screening mammogram for breast cancer (ICD-10 - Z12.31) [facility] [place] [facility] [place] [employer] Other Evaluation noteNo [employer] Other Evaluation note* Diagnosis Onset Date Resolution Status Anxiety acute Sinusitis, acute maxillary a cute Traumatic arthropathy, right ankle and foot acute Anxiety acute Sinusitis, acute maxillary a cute Traumatic arthropathy, right ankle and foot acute [facility] Work Phone: History general Narrative - Reported* Type Description Date Medical History Anxiety Medical History Benign essential HTN Medical History Seasonal allergies Surgical History right leg surgery Surgical History C section x5 Surgical History hysterectomy Surgical History exploratory surgery Hospitalization History stomach issue [employer] Other [employer] general Narrative - ReportedNoCyrusOne Other Summary Purpose Family History No Family History Records Found Relationship Condition Age at Onset Recorded Date/T johanne father Malignant neoplasm Unknown Family history of lung cancer Unknown Unknown family member Unknown Not Specified Unknown sister Family history of lung cancer Unknown Malignant neoplasm Unknown Advance Directives No Advanced Directives Records Found Advance Directive Response Recorded Date/ Time Advance Directives No August 21, 2023 11:16am Chief Complaint and Reason for Visit Chief Complaint Amb Documentation 3 month follow up med check Reason for Visit Anxiety Sinusitis, acute maxillary Traumatic arthropathy, right ankle and foot Anxiety Sinusitis, acute maxillary Traumatic arthropathy, right ankle and foot Additional Source Comments INFORMATION SOURCE (unrecogn ized section and content) DATE CREATED AUTHOR 05/09/2022 [facility] DATE CREATED AUTHOR AUTHOR'S ORGANIZ ATION 01/10/2024 [facility] REASON FOR VISIT (unrecogniz ed section and content) check uprefillrefillrefill3 month Follow uprefillCOVID negCOVID NEGATIVE - not feeling wellrefillCT ChestFlovent3 month Follow uprefillssickrefillrefills Care Teams (unrecognized sec tion and content) Team Status: Active Member Role Status Dates Patricia Perla MD Primary Care Provider Active Team Status: Active Member Role Status Dates Patricia Perla MD Primary Care Provider Active Start: September 18, 2023 WALDO Gonsales Attending Provider Active Start : September 18, 2023 Team Status: Inactive Member Role Status Dates Patricia Perla MD Primary Care Provide r, Attending Provider Active Start: September 29, 2023 End: September 29, 2023 Team Status: Inactive Member Role Status Dates Patricia Perla MD Primary Care Provide r, Attending Provider Active Start: December 04, 2023 End: December 04, 2023 Goals (unrecognized section and content) Goals may be documented in a n alternate section FOR RECORDS PERTAINING TO PATIENTS WHO ARE OR HAVE BEEN ENROLLED IN A CHEMICAL DEPENDENCY/SUBSTANCEABUSE PROGRAM, SOME INFORMATION MAY BE OMITTED. This clinical summary was aggregated from multiple sources. Caution should be exercised in using it in the provision of clinical care. This summary normalizes information from multiple sources, and as a consequence, information in this document may materially change the coding, format and clinical context of patient data. In addition, data may be omitted in some cases. CLINICAL DECISIONS SHOULD BE BASED ON THE PRIMARY CLINICAL RECORDS. [employer] [facility]. provides no warranty or guarantee of the accuracy or completeness of information in this document.
--- NOTE | 2024-03-29 13:53 | ECG_ITS ---
[facility] Test Date: 2024-03-29 Pat Name: CHYNA NUR Department: Room: - Gender: Female Campaign Specialist: : 1955 Requested By: Eduardo Hickman Order Number: [id number] Reading MD: VIVIANA ALVARADO Measurements Intervals [place] Rate: 71 P: 35 RI: 175 QRS: 33 QRSD: 94 T: 49 QT: 394 QTc: 430 Interpretive Statements SINUS RHYTHM No previous ECG available for comparison Electronically Signed On 03-29-2024 18:26:16 EDT by VIVIANA ALVARADO
--- NOTE | 2024-03-29 13:54 | XR_ITS ---
The [address] [address] Patient Name: CHYNA NUR MRN: [id number] date: 1955 Sex: F Assigned Patient Location: [facility] Current Patient Location: [facility] Accession/Order Number: [id number] Exam Date: 03/29/2024 14:30 Report Date: 03/29/2024 14:57 At the request of: RO WOOD Procedure: XR chest 1V EXAM: XR chest 1V CLINICAL INDICATION: pre-op/smoker TECHNIQUE: Portable frontal semi-erect view of the chest. COMPARISON: None. FINDINGS: Lines and tubes: None. Lungs: No convincing focal infiltrates. No pleural effusion or pneumothorax. Heart: Cardiac and mediastinal contours are unremarkable. No overt pulmonary vascular congestion. Osseous structures: No acute abnormalities. XR/XR chest 1V IMPRESSION: No acute cardiopulmonary process. Electronically authenticated by: JULIAN ALVARADO Date: 03/29/2024 14:57
[2024-03-29 14:19] LABS: Basophils Absolute Auto 0.1 10^3/uL (0.0-0.1); Basophils Percent Auto 0.4 % (0.2-2.0); Eosinophils Absolute Auto 0.2 10^3/uL (0.0-0.7); Eosinophils Percent Auto 1.4 % (0.9-7.0); Hematocrit 43.7 % (36.0-48.0); Hemoglobin 14.5 g/dL (12.0-16.0); Immature Granulocytes Abs Auto 0.06 10^3/uL (0.00-0.03); Immature Granulocytes Pct Auto 0.4 % (0.0-0.5); Lymphocytes Absolute Auto 4.7 10^3/uL (1.2-3.8); Lymphocytes Percent Auto 34.4 % (20.5-60.0); Mean Corpuscular HGB Conc 33.2 g/dL (29.9-35.2); Mean Corpuscular Hemoglobin 31.5 pg (26.7-34.0); Mean Platelet Volume 9.2 fL (9.5-13.5); Monocytes Percent Auto 7.2 % (1.7-12.0); Neutrophils Absolute Auto 7.7 10^3/uL (1.4-6.5); Neutrophils Percent Auto 56.2 % (43.0-75.0); Platelet Count 309 10^3/uL (150-450); Red Cell Distribution Width 12.8 % (11.0-15.0); White Blood Count 13.8 10^3/uL (4.0-11.0)
[2024-03-29 14:50] LABS: Anion Gap 15.4; BUN Creatinine Ratio 18.3; Calcium 9.2 mg/dL (8.5-10.1); Carbon Dioxide 24.6 mmol/L (21.0-32.0); Chloride 102 mmol/L (98-107); Estimated GFR (African America >60 (>=60); Estimated GFR (Non-African Ame >60 (>=60); Glucose 106 mg/dL (74-106); Sodium 138 mmol/L (136-145)
== END 2024-03-29 13:04 | disposition home or self-care (01) ==
LOC: PST 13:05
PROVIDERS: PCP Nurse Practitioner; Visit Provider Orthopaedic Surgery
DX: Z01.810 Encounter for preprocedural cardiovascular examination (principal); Z01.812 Encounter for preprocedural laboratory examination; S62.391A Other fracture of second metacarpal bone, left hand, initial encounter for closed fracture
CPT/HCPCS: 36415; 71045; 80048; 85025; 93005

== ENCOUNTER 2024-04-02 13:58 | Day surgery (SDC) | payer OTHER, SELFPAY ==
[2024-03-29 13:47] VITALS: BP 110/72; PULSE 60; TEMP 35.9; O2SAT 94
[2024-03-29 13:50] VITALS: BMI 34.4
[2024-04-02] VITALS (15 sets, daily range): BP systolic 104–124; BP diastolic 60–83; PULSE 62–113; TEMP 35.5–36.3; O2SAT 91–98; BMI 33.3
[2024-04-02] MEDS: LACTATED RINGER'S SOLUTION 1,000 ML 50 ML IV ×2 (14:36→16:18)
[2024-04-02] MEDS: CEFAZOLIN SODIUM/DEXTROSE,ISO 2 GM/50 ML PIGGYBACK IV (15:23)
--- NOTE | 2024-04-02 15:27 | PM.ORPRC ---
Procedure Note Date of procedure: 04/02/24 Pre-op diagnosis: Left index metacarpal base fracture Post-op diagnosis: same as pre-op Procedure: Operation: Closed reduction percutaneous pinning left index metacarpal fracture Detailed description of procedure: After informed consent was obtained the patient brought the operating room where general LMA was administered. The left hand was prepped and draped in usual sterile fashion. Using traction and manipulation close reduction of the index metacarpal fracture was achieved. A K wire was then placed from the distal fragment into the adjacent third metacarpal shaft. In a similar fashion a second K wire was placed. X-rays in multiple planes revealed a reduced index metacarpal fracture with appropriate implant placement. A total of 10 mL 0.5% Marcaine plain was infiltrated just proximal to the fracture. Sterile dressing was placed. Well-padded radial gutter splint was placed. Patient was awakened and brought to the recovery in stable condition. There were no intraoperative or immediate postoperative complications. Anesthesia: General-LMA Surgeon: Eduardo Hickman Estimated blood loss (mL): 2 Pathology: none sent Condition: stable Disposition: PACU
[2024-04-02] MEDS: BUPIVACAINE HCL 0.5% PF 50 MG/10 ML VIAL INJ (15:54)
[2024-04-02] MEDS: HYDROMORPHONE HCL 0.5 MG/0.5 ML SYRINGE IV ×5 (16:13→16:35)
[2024-04-02] MEDS: HYDROCODONE/ACET 5-325 MG TABLET 1 TAB PO (16:25)
== END 2024-04-02 17:35 | disposition home or self-care (01) ==
PROVIDERS: PCP Nurse Practitioner; Visit Provider Orthopaedic Surgery
PROC: (CPT 1820; principal; 2024-04-02 15:00)
DX: S62.311A Displaced fracture of base of second metacarpal bone, left hand, initial encounter for closed fracture (principal); W19.XXXA Unspecified fall, initial encounter; Z90.710 Acquired absence of both cervix and uterus; F17.200 Nicotine dependence, unspecified, uncomplicated; I10 Essential (primary) hypertension
CPT/HCPCS: 26608; 76000; J0665; J0690; J1100; J1170; J1885; J2250; J2405; J2704; J3010

== ENCOUNTER 2024-04-15 10:08 | Outpatient (OUT) | payer OTHER, SELFPAY ==
--- NOTE | 2024-04-15 | XR_ITS ---
The [address] [address] Patient Name: CHYNA NUR MRN: [id number] date: 1955 Sex: F Assigned Patient Location: Current Patient Location: Accession/Order Number: [id number] Exam Date: 04/15/2024 10:23 Report Date: 04/17/2024 07:23 At the request of: RO WOOD Procedure: XR hand LT min 3V PROCEDURE: XR hand LT min 3V COMPARISON: 03/25/2024 HISTORY: LEFT HAND PAIN FINDINGS: BONES:Reduction and pinning of a oblique extra-articular fracture base of the second metacarpal. Anatomic alignment is demonstrated. No new fracture or dislocation. Mild degenerative changes with joint space narrowing. SOFT TISSUES:Negative. No visible soft tissue swelling. EFFUSION:None visible. OTHER: Negative. XR/XR hand LT min 3V IMPRESSION: Reduction and pinning of a extra-articular fracture base of the second metacarpal Electronically authenticated by: LISBETH ZHANG Date: 04/17/2024 07:23
--- OUTSIDE RECORDS SUMMARY | 2024-04-15 10:25 | XMS_ITS | CCD ---
Author Organization [facility] Care Team Providers Care Reinsurance Accountant Name Role Phone DODIE, DR PATRICIA Carlson Admitting Unavailable PERLA, DR PATRICIA Carlson Attending Unavailable PERLA, DR PATRICIA Carlson Primary Care Unavailable [place], DR LISBETH Parrish Consulting Unavailable PERLA, DR PATRICIA Carlson Consulting Unavailable Perla, Patricia Unavailable Niya, JUDICIAL ADMINISTRATIVE ASSISTANT Tiffany L Attending Unavailable Niya, JUDICIAL ADMINISTRATIVE ASSISTANT Tiffany L Attending Unavailable Niya, JUDICIAL ADMINISTRATIVE ASSISTANT Tiffany L Attending Unavailable Niya, JUDICIAL ADMINISTRATIVE ASSISTANT Tiffany L Attending Unavailable Niya, JUDICIAL ADMINISTRATIVE ASSISTANT Tiffany L Attending Unavailable Niya, JUDICIAL ADMINISTRATIVE ASSISTANT Tiffany L Admitting Unavailable Niya, JUDICIAL ADMINISTRATIVE ASSISTANT Tiffany L Attending Unavailable Niya, JUDICIAL ADMINISTRATIVE ASSISTANT Tiffany L Attending Unavailable Niya, JUDICIAL ADMINISTRATIVE ASSISTANT Tiffany L Admitting Unavailable Niya, JUDICIAL ADMINISTRATIVE ASSISTANT Tiffany L Attending Unavailable Allergies Allergy Classification Reported Allergen(s) Allergy Type Date of Onset Reaction(s) Facility (1 source) Sulfonamides (Antibiotic) Drug allergy (disorder) 02-01-20 21 [facility] Repository (6 sources) Clarithromycin Drug Allergy 12-04-19 24 Unknown, Unknown Reaction [facility] (18 sources) Nitrofurantoin Drug Allergy 12-04-19 24 Unknown, Unknown Reaction [facility] (17 sources) Sulfacetamide / Sulfur Drug Allergy Unknown [facility] Other (17 sources) Substance with sulfonamide structure and antibacterial mechanism of action (substance) Drug allergy Unknown [facility] Other (14 sources) Sulfamethoxazole / Trimethoprim Drug Allergy 04-08-20 13 Unknown [facility] Other (2 sources) Allergies Reconciled Propensity to adverse reactions Unknown [facility] Other (14 sources) Biaxin *MACROLIDES* Propensity to adverse reactions 08-16-19 17 Unknown [facility] Other (2 sources) patient allergy list reviewed by nurse or physicia Propensity to adverse reactions 11-30-19 Comment:Done [facility] Other (1 source) Sulfacetamide Drug Allergy 12-04-19 24 Unknown Reaction [facility] (1 source) Sulfamethoxazole Drug Allergy 12-04-19 24 Unknown Reaction [facility] (1 source) Sulfonamides (Antibiotic) Allergy to substance 12-04-19 24 Unknown Reaction [facility] (1 source) Sulfur Drug Allergy 12-04-19 24 Unknown Reaction [facility] (1 source) Trimethoprim Drug Allergy 12-04-19 24 Unknown Reaction [facility] (1 source) Sulfonamides (Antibiotic); Translations: [sulfa drugs] Propensity to adverse reactions (disorder) [facility] Repository Medications Current Medications Medication Drug Class(es) Dates Sig (Normalized) Sig (Original) acetaminophen 325 mg / HYDROcodone bitartrate 10 mg oral tablet (20 sources) Opioid Agonist Start: 09-21-2023 End: 11-30-2023 take 1 tablet by mouth three times daily Hydrocodone-Aceta minophen Active 1 TAB PO Three times daily 45 15 November 30, 2023 Start: 09-08-2023 take 1 [...] DAY NEEDED for 30 days November, Active [id number] 200 actuat albuterol 0.09 mg/actuat metered dose [...] day for 30 days Jun, Active Start: 07-14-2023 [...] tab daily x 4 more days for 5 Apr, Active benazepril hydrochloride 20 mg / [...] Start: 03-27-2023 take 1 tablet by armida th once daily before breakfast Adipex-P 37.5 MG [...] Name Value Interpretation Reference Range Facil ity .Interpretation:on HCV Ab IA Ql Comment Invalid Interpretation Code [facility] Comment on above: Result Comment: Not infected with HCV unless early or acute infection is suspected (which may be delayed in an immunocompromised individual), or other evidence exists to indicate HCV infection. Performed at: [id number] [id number] PhD Delmi No Performed By: #### 2 [id number] #### [facility] [address] [place] [address] HCV Antibody RFX to Quant [facility] [place] 04-13-2024 HCV IgG IA Ql Non-Reactive Invalid Interpretation Code Non Reactive [facility] Comment on above: Result Comment: Perf ormed at: [id number] [id number] PhD Delmi No Performed By: #### 2 [id number] #### [facility] [address] [place] [address] CMPon 04-11-2024 Albumin [Mass/Vol] 3.9 g/dL Normal 3.3-5.0 [facility] Comment on above: Performed By: #### 2 [id number] #### [facility] [address] [place] [address] Albumin/Globulin (S) [Mass conc ratio] 1.4 Normal 1.1-2.2 [facility] Comment on above: Performed By: #### 2 [id number] #### [facility] [address] [place] [address] ALP [Catalytic activity/Vol] 111 Int._Unit/L High 21-98 [facility] Comment on above: Performed By: #### 2 [id number] #### [facility] [address] [place] [address] ALT No additional P-5'-P [Catalytic activity/Vol] 21 Int._Unit/L Normal 6-46 [facility] Comment on above: Performed By: #### 2 [id number] #### [facility] [address] [place] [address] Anion gap [Moles/Vol] 10 mmol/L Normal 6-16 [facility] Comment on above: Performed By: #### 2 [id number] #### [facility] [address] [place] [address] AST [Catalytic activity/Vol] 20 Int._Unit/L Normal 5-43 [facility] Comment on above: Performed By: #### 2 [id number] #### [facility] [address] [place] [address] Bilirubin [Mass/Vol] 0.3 mg/dL Normal 0.0-1.1 [facility] Comment on above: Performed By: #### 2 [id number] #### [facility] [address] [place] [address] Calcium [Mass/Vol] 9.2 mg/dL Normal 8.9-11.1 [facility] Comment on above: Performed By: #### 2 [id number] #### [facility] [address] [place] [address] Chloride [Moles/Vol] 106 mmol/L Normal 101-111 [facility] Comment on above: Performed By: #### 2 [id number] #### [facility] [address] [place] [address] CO2 [Moles/Vol] 27 mmol/L Normal 21-31 [facility] Comment on above: Performed By: #### 2 [id number] #### [facility] [address] [place] [address] Creatinine [Mass/Vol] 0.7 mg/dL Normal 0.5-1.3 [facility] Comment on above: Performed By: #### 2 [id number] #### [facility] [address] [place] [address] Globulin (S) [Mass/Vol] 2.7 g/dL Normal 1.4-4.0 [facility] Comment on above: Performed By: #### 2 [id number] #### [facility] [address] [place] [address] Glucose [Mass/Vol] 89 mg/dL Normal 55-199 [facility] Comment on above: Performed By: #### 2 [id number] #### [facility] [address] [place] [address] Potassium [Moles/Vol] 4.1 mmol/L Normal 3.5-5.3 [facility] Comment on above: Performed By: #### 2 [id number] #### [facility] [address] [place] [address] Protein [Mass/Vol] 6.6 g/dL Normal 6.0-7.8 [facility] Comment on above: Performed By: #### 2 [id number] #### [facility] [address] [place] [address] Sodium [Moles/Vol] 139 mmol/L Normal 135-145 [facility] Comment on above: Performed By: #### 2 [id number] #### [facility] [address] [place] [address] Urea nitrogen [Mass/Vol] 23 mg/dL High 5-21 [facility] Comment on above: Performed By: #### 2 [id number] #### [facility] [address] [place] [address] Urea nitrogen/Creatini ne [Mass ratio] 33 No Units High 10-20 [facility] Comment on above: Performed By: #### 2 [id number] #### [facility] [address] [place] [address] Lipid Panelon 04-11-2024 Cholesterol [Mass/Vol] 221 mg/dL High 120-200 [facility] Comment on above: Performed By: #### 2 [id number] #### [facility] [address] [place] [address] Cholesterol in HDL [Mass/Vol] 48 mg/dL Invalid Interpretation Code [facility] Comment on above: Result Comment: '>= 60 LOW RISK' '<= 40 HIGH RISK' Performed By: #### 2 [id number] #### [facility] [address] [place] [address] Cholesterol in LDL [Mass/Vol] 164 mg/dL High <=129 [facility] Comment on above: Performed By: #### 2 [id number] #### [facility] [address] [place] [address] Cholesterol in VLDL [Mass/Vol] 35 mg/dL Normal 7-40 [facility] Comment on above: Performed By: #### 2 [id number] #### [facility] [address] [place] [address] Triglyceride [Mass/Vol] 177 mg/dL High <=149 [facility] Comment on above: Performed By: #### 2 [id number] #### [facility] [address] [place] [address] eGFRon 04-11-2024 eGFR 94 mL/min/1.73 m2 Normal >=59 [facility] Comment on above: Order Comment: Order added by Discern Expert. Performed By: #### 1 [id number] #### [facility] [address] [place] [address] Ambulatory Visit Summaryon 0 04-09-2024 Ambulatory Visit Summary Ambulatory Visit Summary NIYA NUR :1955 Visit Date:04/09/2024 Ambulatory Visit Instructions Your Diagnosis Encounter for Medicare annual examination with abnormal findings Anxiety HTN (hypertension) Tobacco user Screening for ischemic heart disease Ovarian failure due to menopause Breast cancer screening Encounter for hepatitis C screening test for low risk patient Immunization declined Advanced directives, counseling/discussion Obesity due to excess calories Tests Performed BD Bone Density DEXA -- Results Pending -- CT Chest, Low Dose Screening -- Results Pending -- MA Mamm Screen w/CAD if perf and 3D Alexander -- Results Pending -- Please visit your patient portal for your results or contact your primary care physician. Your Care Team Attending Physician - Tiffany Zuñiga Primary Care Physician - Tiffany Zuñiga This Is Your Medications List acetaminophen-hydrocod one (acetaminophen-hydroco done 325 mg-10 mg oral tablet) alprazolam (alprazolam 1 mg Tab) benazepril-hydrochloro thiazide (benazepril-hydrochlor othiazide 20 mg-25 mg oral tablet) diclofenac (diclofenac sodium 75 mg Oral EC Tab) diphenhydrAMINE (diphenhydrAMINE 25 mg Cap) paroxetine (paroxetine 40 mg Tab) Procedures Performed Appendectomy, delivery, Hysterectomy and bilateral salpingo-oophorectomy sample. Discharge Vitals Heart Rate (Peripheral) 88 Respiratory Rate 14 Blood Pressure 130/60 Height 163.5 cm Height 64 in Weight 95.48 kg Weight 210.056 lb BMI 35.72 What to do next Scheduled Follow-Up Appointments 2023 8:20 AM EDT With: Where: [address] [address]- Monday 8:20 AM EST With: Tiffany Zuñiga Where: [address] [id number]- 2024 11:00 AM EDT With: Where: [address] [id number] You Need to Complete the Following Comprehensive Metabolic Panel, Blood, Routine collect, 04/09/24, Order for future visit, Lab Collect, HTN (hypertension), Print Label By Order Location HCV Antibody RFX to Quant PCR, Blood, Routine collect, 04/09/24, Order for future visit, Lab Collect, Encounter for hepatitis C screening test for low risk patient, Print Label By Order Location Lipid Panel, Blood, Routine collect, 04/09/24, Order for future visit, Lab Collect, Screening for ischemic heart disease, Print Label By Order Location Medications What How Much When Why Instructions Unchanged acetaminophen-hydrocod one (acetaminophen-hydroco done 325 mg-10 mg oral tablet) 1 Tablets By Mouth 3 times a day Duration: 30 Days Unchanged alprazolam (alprazolam 1 mg Tab) 1 Tablets By Mouth 2 times a day Anxiety TAKE 1 TABLET BY MOUTH TWICE A DAY NEEDED Unchanged benazepril-hydrochloro thiazide (benazepril-hydrochlor othiazide 20 mg-25 mg oral tablet) 1 Tablets By Mouth Every day TAKE 1 TABLET BY MOUTH EVERY DAY Unchanged diclofenac (diclofenac sodium 75 mg Oral EC Tab) 1 Tablets By Mouth 2 times a day Unchanged diphenhydrAMINE (diphenhydrAMINE 25 mg Cap) By Mouth Every day Unchanged paroxetine (paroxetine 40 mg Tab) 1 Tablets By Mouth Every day TAKE 1 TABLET BY MOUTH EVERY DAY Medications and Immunizations Administered Not Given influenza virus vaccine, inactivated, Patient Refuses Allergies sulfa drugs (Tongue swelling) Problems Ongoing - Any problem that you are currently receiving treatment for. Anxiety BMI 35.0-35.9,adult Chronic pain of right lower extremity Displaced fracture of phalanx of finger of left hand HTN (hypertension) Hypertension Nodule of lung Tobacco user Traumatic arthropathy of the ankle and/or foot Patient Survey You may receive a survey via text or e-mail asking about your office visit. Please share your experience with us by completing your survey. We appreciate your feedback and thank you for choosing us for your care. Education Materials Managing Anxiety, Adult After being diagnosed with anxiety, you may be relieved to know why you have felt or behaved a certain way. You may also feel overwhelmed about the treatment ahead and what it will mean for your life. With care and support, you can manage your anxiety. How to manage lifestyle changes Understanding the difference between stress and anxiety Although stress can play a role in anxiety, it is not the same as anxiety. Stress is your body's reaction to life changes and events, both good and bad. Stress is often caused by something external, such as a deadline, test, or competition. It normally goes away after the event has ended and will last just a few hours. But, stress can be ongoing and can lead to more than just stress. Anxiety is caused by (more content not included)... Normal [facility] Ambulatory Visit Summary Ambulatory Visit Summary NIYA NUR :1955 Visit Date:04/09/2024 Ambulatory Visit Instructions Your Diagnosis Anxiety Chronic pain of right lower extremity Traumatic arthropathy of the ankle and/or foot Smoker BMI 35.0-35.9,adult Class 1 obesity due to excess calories in adult Other chronic pain Your Care Team Attending Physician - Tiffany Zuñiga Primary Care Physician - Tiffany Zuñiga This Is Your Medications List acetaminophen-hydrocod one (acetaminophen-hydroco done 325 mg-10 mg oral tablet) alprazolam (alprazolam 1 mg Tab) benazepril-hydrochloro thiazide (benazepril-hydrochlor othiazide 20 mg-25 mg oral tablet) diclofenac (diclofenac sodium 75 mg Oral EC Tab) diphenhydrAMINE (diphenhydrAMINE 25 mg Cap) paroxetine (paroxetine 40 mg Tab) Procedures Performed Appendectomy, delivery, Hysterectomy and bilateral salpingo-oophorectomy sample. Discharge Vitals Temperature (Temporal Artery) 36.7 ?C Heart Rate (Peripheral) 80 Respiratory Rate 18 Blood Pressure 112/78 Height 163.5 cm Height 64 in Weight 95.65 kg Weight 210.43 lb BMI 35.78 What to do next Scheduled Follow-Up Appointments 2023 8:20 AM EDT With: Where: [address] [address]- Monday 8:20 AM EST With: Tiffany Zuñiga Where: [address] [address]- 2024 11:00 AM EDT With: Where: [address] [address]- You Need to Complete the Following Comprehensive Metabolic Panel, Blood, Routine collect, 04/09/24, Order for future visit, Lab Collect, HTN (hypertension), Print Label By Order Location Lipid Panel, Blood, Routine collect, 04/09/24, Order for future visit, Lab Collect, Screening for ischemic heart disease, Print Label By Order Location Medications What How Much When Why Instructions Unchanged acetaminophen-hydrocod one (acetaminophen-hydroco done 325 mg-10 mg oral tablet) 1 Tablets By Mouth 3 times a day Duration: 30 Days Unchanged alprazolam (alprazolam 1 mg Tab) 1 Tablets By Mouth 2 times a day Anxiety TAKE 1 TABLET BY MOUTH TWICE A DAY NEEDED Unchanged benazepril-hydrochloro thiazide (benazepril-hydrochlor othiazide 20 mg-25 mg oral tablet) 1 Tablets By Mouth Every day TAKE 1 TABLET BY MOUTH EVERY DAY Unchanged diclofenac (diclofenac sodium 75 mg Oral EC Tab) 1 Tablets By Mouth 2 times a day Unchanged diphenhydrAMINE (diphenhydrAMINE 25 mg Cap) By Mouth Every day Unchanged paroxetine (paroxetine 40 mg Tab) 1 Tablets By Mouth Every day TAKE 1 TABLET BY MOUTH EVERY DAY Allergies sulfa drugs (Tongue swelling) Problems Ongoing - Any problem that you are currently receiving treatment for. Anxiety BMI 35.0-35.9,adult Chronic pain of right lower extremity HTN (hypertension) Hypertension Nodule of lung Tobacco user Traumatic arthropathy of the ankle and/or foot Patient Survey You may receive a survey via text or e-mail asking about your office visit. Please share your experience with us by completing your survey. We appreciate your feedback and thank you for choosing us for your care. Normal [facility] Family Medicine Office/Clini c Noteon 04-09-2024 Family Medicine Office/Clinic Note Family Medicine Office/Clinic Note Chief Complaint Initial Medicare Wellness Review of Systems PHQ Score Initial Depression Screen Score: 4 SCORE Detailed Depression Screen Score: 12 Total Depression Screen Score: 16 Physical Exam Vitals & Measurements HR: 88(Peripheral) RR: 14 BP: 130/60 SpO2: 95% HT: 163.5 cm HT: 64 in WT: 95.48 kg WT: 210.056 lb BMI: 35.72 Assessment/Plan 1. Encounter for Medicare annual examination with abnormal findings (Z00.01: Encounter for general adult medical examination with abnormal findings) The patient was given a customized and personalized print out of all the current AHRQ USPSTF?s recommendations for preventative services and all current CDC recommended immunizations, relevant risk recommendations and the following patient brochures were given. Reviewed Medicare Prevention Services checklist. CDC-Falls Prevention and home safety screening reviewed. Patient admits to one injury fall in last 12 months, voices no worry about falling. Exhibits no problems with sitting, standing or ambulation. Patient aware with keeping walk way area free of clutter to prevent tripping and/or falling. [place] Advance Directives reviewed. Documents provided to patient and encouraged to bring in for scanning into chart once completed. Patient denies any problems with ADL?s and Instrumental ADL?s. Cognitive screening completed with memory and clock face drawing. No deficits noted. 2/3 memory words recited. Immunization record reviewed, discussed Shingrix vaccine with educational handout and availability. 0 COVID vaccines have been administered. Allergies and medications reviewed and up to date. No concerns with taking medication as prescribed. Reviewed OTC medications, medication list up to date. Blood tests were reviewed: Discussed what tests need to be updated. Labs were ordered for Lipids and CMP, will have completed at office later this week. No concerns with bowel/ bladder. Colonoscopy last completed approximately 20 years ago. Patient reports insurance is going to send her a test like Cologuard to be completed at home. Reviewed pain symptoms : chronic leg pain and left hand pain, rates pain as a 8 out of 10, [place] and diclofenac prescribed. Reviewed all outside providers that patient follows. Last visit summary notes available in chart and/or have been requested. Patient drinks alcohol 1-2 monthly 1-2 drinks, denies concerns. 8 minutes spent with screening and documentation. Audit score 2. Follow up scheduled with PCP, today after wellness visit AWV has been scheduled, 04/10/2025 Medicare provides yearly screening for alcohol and depression concerns. This is completed during our Medicare wellness visit for those who do not have a current diagnosis of depression or concerns with alcohol use. I spent a total of 17 minutes on this date of service which included preparing to see the patient, face to face patient care, completing clinical documentation, obtaining and/or reviewing separately obtained history, counseling and educating the patient with handouts. Explanations were provided with reviewing questionnaires. AUDIT risk assessment screening completed, risk score 2 with patient denying concerns with use. Completed PHQ-2 risk assessment for depression with risk score 4 positive findings. PHQ 9 score 16. Patient has been reminded to notify the provider if there would be a change or concerns with symptoms with fear, unable to sleep, worrying too much or feeling down and/or sad with lost of interest with daily activities. Will continue to monitor with screening yearly during Medicare wellness visits. 2. Anxiety (F41.9: Anxiety disorder, unspecified) Patient takes paroxetine daily as directed, voices effectiveness of medication. BEKAH-7 screening completed today with a score of 12. Follows with PCP as directed for management and symptom control. Denies any suicidal ideations at this time. Education provided, stress management and relaxation techniques reviewed. Will continue to follow with PCP and communicate any changes of increased anxiety. Reviewed additional signs/symptoms to monitor for and report to provider. 3. HTN (hypertension) (I10: Essential (primary) hypertension) Patient is taking benazil-hctz daily as directed. Does monitor BP pressure at home. HTN stoplight reviewed with BP goal to be <140/90. Reviewed different factors that can alter blood pressure readings. Education handout provided with s/s to monitor for and report to provider. Patient is encouraged to increase portions of fruit, vegetables, fiber and increase exercise as much as tolerable. Reviewed importance with monitoring foods high in salt content and encouraged to limit intake, if unsure encouraged to discuss with their PCP. Encouraged to eat more chicken, fish and lean white meats and limits red meats in diet. Discussed importance with keeping BP under good control to reduce CVA risk factors. Will continue to f/u with PCP during office visits and as needed. (more content not included)... Normal [facility] Comment on above: Result Comment: Elec tronically Signed By: Tiffany Zuñiga\.br\Date and Time Signed: 04/09/24 12:41 EDT\.br\Electronically Co-Signed By: Melina Plunkett\.br\Date and Time Co-Signed: 04/09/24 09:57 EDT Family Medicine Office/Clinic Note Family Medicine Office/Clinic Note HPI Staff Niya is a 68 year old female presenting with anxiety f/u Taking Alprazolam 1 mg Follow up for Mental Status: Medication adherence- Yes, takes medication as prescribed Medication refill needed: _ Suicidal thoughts-Not at this time Most recent BEKAH: 12 Most recent PHQ: 14 *Med agreement done today (04/09/24) History of Present Illness pt presents today for 3 month med check Review of Systems PHQ Score Initial Depression Screen Score: 0 SCORE Physical Exam Vitals & Measurements T: 36.7 ?C(Temporal Artery) HR: 80(Peripheral) RR: 18 BP: 112/78 SpO2: 95% HT: 64 in HT: 163.5 cm WT: 95.65 kg WT: 210.43 lb BMI: 35.78 General: alert, no acute distress ENMT: oral mucosa moist, no pharyngeal erythema or exudate Cardiovascular: regular rate and rhythm, normal peripheral perfusion Respiratory: Lungs CTA, respirations non labored Extremities: no deformity, no trauma Neurological: oriented x 4, LOC appropriate for age, CN II-XII intact, motor strength equal & normal bilaterally, speech normal Assessment/Plan 1. Anxiety (F41.9: Anxiety disorder, unspecified) pt here for 3 month med check. medication agreement updated. pt does not need refills at this time. RTC 3 months 2. Chronic pain of right lower extremity (M79.604: Pain in right leg) medication agreement updated. will do drug screen at next visit 3. 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 Displaced fracture of phalanx of finger of left hand (S62.609A: Fracture of unspecified phalanx of unspecified finger, initial encounter for closed fracture) pt recently had surgery had pins placed 5. Smoker (F17.200: Nicotine dependence, unspecified, uncomplicated) consider not smoking 6. BMI 35.0-35.9,adult (Z68.35: Body mass index [BMI] 35.0-35.9, adult) BMI education given 7. Class 1 obesity due to excess calories in adult (E66.09: Other obesity due to excess calories) see above Orders: BD Bone Density DEXA Comprehensive Metabolic Panel CT Chest, Low Dose Screening Lipid Panel MA Mamm Screen w/CAD if perf and 3D Alexander Follow-up No qualifying data available Problem List/Past Medical History Ongoing Anxiety BMI 35.0-35.9,adult Chronic pain of right lower extremity Displaced fracture of phalanx of finger of left hand HTN (hypertension) Hypertension Nodule of lung Tobacco user Traumatic arthropathy of the ankle and/or foot Historical No qualifying data Procedure/Surgical History Appendectomy, delivery, Hysterectomy and bilateral salpingo-oophorectomy sample. Medications acetaminophen-hydrocod one 325 mg-10 mg oral tablet, 1 tab(s), Oral, TID alprazolam 1 mg Tab, 1 mg= 1 tab(s), Oral, BID benazepril-hydrochloro thiazide 20 mg-25 mg oral tablet, 1 tab(s), Oral, Daily, 3 refills diclofenac sodium 75 mg Oral EC Tab, 75 mg= 1 tab(s), Oral, BID diphenhydrAMINE 25 mg Cap, Oral, Daily paroxetine 40 mg Tab, 40 mg= 1 tab(s), Oral, Daily, 3 refills Allergies sulfa drugs (Tongue swelling) Social History Alcohol Current, Beer, Liquor, 1-2 times per month, Alcohol use interferes with work or home: No., 04/09/2024 Substance Abuse Current, Marijuana, 1-2 times per year, 04/09/2024 Tobacco 10 or more cigarettes (1/2 pack or more)/day in last 30 days Tobacco Use:. Cigarettes, Ready to change: No. Household tobacco concerns: No. Yes, 04/09/2024 Family History Family history is negative Immunizations Vaccine Date Status Comments influenza virus vaccine, inactivated - Not Given Patient Refuses Normal [facility] Comment on above: Result Comment: Elec tronically Signed By: Tiffany Zuñiga\.br\Date and Time Signed: 04/09/24 09:33 EDT Medication Consenton 024 Medication Consent [id number] 0TIFF Normal [facility] Ambulatory Visit Summaryon 0 01-09-2024 Ambulatory Visit Summary ANDRE NURRachel Alcaraz :1955 Visit Date:01/09/2024 Ambulatory Visit Instructions Your Diagnosis Hypertension Anxiety Chronic pain of right lower extremity BMI 35.0-35.9,adult Smoker Your Care Team Attending Physician - Tiffany Zuñiga Primary Care Physician - Tiffany Zuñiga This Is Your Medications List acetaminophen-hydrocod one (acetaminophen-hydroco done 325 mg-10 mg oral tablet) alprazolam (alprazolam 1 mg Tab) benazepril-hydrochloro thiazide (benazepril-hydrochlor othiazide 20 mg-25 mg oral tablet) paroxetine (paroxetine 40 mg Tab) Procedures Performed Appendectomy, delivery, Hysterectomy and bilateral salpingo-oophorectomy sample. Discharge Vitals Heart Rate (Peripheral) 112 Respiratory Rate 18 Blood Pressure 118/78 Height 163.5 cm Height 64 in Weight 94.7 kg Weight 208.34 lb BMI 35.43 What to do next Scheduled Follow-Up Appointments Monday 8:00 AM EDT With: Where: [facility] [place] [facility] [address] [place] [address]- \.br\ Medications\.br \ What How Much When Instructions\.b r\ Changed benazepril-hydr ochlorothiazide (benazepril-hyd rochlorothiazid e 20 mg-25 mg oral tablet) 1 Tablets By Mouth Every day TAKE 1 TABLET BY MOUTH EVERY DAY Pickup at [facility]/pharmacy #[id number]\.br\ Changed paroxetine (paroxetine 40 mg Tab) 1 Tablets By Mouth Every day TAKE 1 TABLET BY MOUTH EVERY DAY Pickup at [facility]/pharmacy #[id number]\.br\ Unchanged acetaminophen-h ydrocodone (acetaminophen- hydrocodone 325 mg-10 mg oral tablet) 1 Tablets [...] FOR 15 DAYS *DNF * \.br\ Pharmacy Information\.br \ [facility]/pharmacy #[id number]: [address], [place] [phone]\.br\ Allergies\.br\ sulfa drugs (Tongue swelling)\.br\ Problems\.br\ Ongoing - Any problem that you are currently receiving treatment for.\.br\ Anxiety\.br\ Chronic pain of right lower extremity\.br\ HTN (hypertension)\ .br\ Hypertension\.b r\ Patient Survey\.br\ You may receive a survey via text or e-mail asking about your office visit. Please share your experience with us by completing your survey. We appreciate your feedback and thank you for choosing us for your care.\.br\ \.br\ [facility] Auth for Release of Medical Recordson 01-09-2024 Auth for Release of Medical Records [id number] TIFF Normal [facility] Family Medicine Office/Clini c Noteon 01-09-2024 Family Medicine Office/Clinic Note HPI Staff Núñez is a 68 year old female presenting to establish care Establish Care: History: Any previous diagnosis: Anxiety , HTN, Chronic leg pain History of seeing any specialist: When was your last doctors visit: Last provider: Dr Perla Any recent labs: had some at [facility] unsure what was drawn BEKAH: 8 Health Maintenance UTD: Colonoscopy: 20 years ago normal Mammogram: Fall 2022 normal [facility] Pelvic/Pap: nothing since hysterectomy 26 years ago [...] today. she had labs done recently at [facility] will obtain those for her chart. RTC [...] dismissed her. pt had gone to a libertarian and took lyrica and didn't realize it would show in her urine drug screen. pt is very upset and embarrassed. medication agreement discussed and signed. pt is not due for refills at this time 4. BMI 35.0-35.9,adult (Z68.35: Body mass index [BMI] 35.0-35.9, adult) BMI education complete 5. Smoker (F17.200: Nicotine dependence, unspecified, uncomplicated) consider not smoking Orders: benazepril-hydrochloro thiazide, 1 tab(s), Oral, Daily, 90 tab(s), Refill(s) 3, TAKE 1 TABLET BY MOUTH EVERY DAY, [facility]/pharmacy #[id number], 163.5, cm, 01/09/24 13:01:00 EDT, Height/Length Dosing, 94.7, kg, 01/09/24 13:01:00 EDT, Weight Dosing paroxetine, 40 mg = 1 tab(s), Oral, Daily, TAKE 1 TABLET BY MOUTH EVERY DAY, # 90 tab(s), Refills(s) 3, Pharmacy: [facility]/pharmacy #[id number], 163.5, cm, 01/09/24 13:01:00 EDT, Height/Length Dosing, 94.7, kg, 01/09/24 13:01:00 EDT, Weight Dosing Follow-up No qualifying data available Problem List/Past Medical History Ongoing Anxiety Chronic pain of right lower extremity HTN (hypertension) Hypertension Historical No qualifying data Procedure/Surgical History Appendectomy, delivery, Hysterectomy and bilateral salpingo-oophorectomy sample. Medications acetaminophen-hydrocod one 325 mg-10 mg oral tablet, 1 tab(s), Oral, TID, PRN alprazolam 1 mg Tab, 1 mg= 1 tab(s), Oral, BID benazepril-hydrochloro thiazide 20 mg-25 mg oral tablet, 1 tab(s), [...] change: No. Household tobacco concerns: No., 01/09/2024 [facility] Comment on above: Result Comment: [...] by: LISBETH ZHANG Date: 2022-05-05 19:08 Normal [facility] Vital Signs Date Time Vital Sign Value Performing Clinician Facility 12-04-2023 10:06-0400 Body height 170.18 cm [facility] 12-04-2023 10:06-0400 Body mass index (BMI) [Ratio] 33 kg/m2 [facility] 12-04-2023 10:06-0400 Body weight 95.76 kg [facility] 12-04-2023 10:06-0400 Diastolic blood pressure 67 mm[Hg] [facility] 12-04-2023 10:06-0400 Heart rate 99 /min [facility] 12-04-2023 10:06-0400 Systolic blood pressure 102 mm[Hg] [facility] 09-29-2023 10:10-0500 Body height 170.18 cm [facility] 09-29-2023 10:10-0500 Body mass index (BMI) [Ratio] 33.4 kg/m2 [facility] 09-29-2023 10:10-0500 Body weight 96.72 kg [facility] 09-29-2023 10:10-0500 Diastolic blood pressure 69 mm[Hg] [facility] 09-29-2023 10:10-0500 Heart rate 94 /min [facility] 09-29-2023 10:10-0500 Systolic blood pressure 108 mm[Hg] [facility] 06-27-2023 10:00-0500 Body height 170.18 cm Patricia Perla Other [facility] Other 06-27-2023 10:00-0500 Body mass index (BMI) [Ratio] 32.42 kg/m2 Patricia Perla Other [facility] Other 06-27-2023 10:00-0500 Body weight 93.9 kg Patricia Perla Other [facility] Other 06-27-2023 10:00-0500 Diastolic blood pressure 73 mm[Hg] Patricia Perla Other [facility] Other 06-27-2023 10:00-0500 Systolic blood pressure 120 mm[Hg] Patricia Perla Other [facility] Other 03-27-2023 10:00-0400 Body height 170.18 cm Patricia Perla Other [facility] Other 03-27-2023 10:00-0400 Body mass index (BMI) [Ratio] 33.67 kg/m2 Patricia Perla Other [facility] Other 03-27-2023 10:00-0400 Body weight 97.52 kg Patricia Perla Other [facility] Other 03-27-2023 10:00-0400 Diastolic blood pressure 67 mm[Hg] Patricia Perla Other [facility] Other 03-27-2023 10:00-0400 Systolic blood pressure 98 mm[Hg] Patricia Perla Other [facility] Other 12-28-2022 10:30-0400 Body height 170.18 cm Patricia Perla Other [facility] Other 12-28-2022 10:30-0400 Body mass index (BMI) [Ratio] 33.51 kg/m2 Patricia Perla Other [facility] Other 05-31-2023 10:30-0400 Body weight 97.07 kg Patricia Perla Other [facility] Other 12-28-2022 10:30-0400 Diastolic blood pressure 74 mm[Hg] Patricia Perla Other [facility] Other 12-28-2022 10:30-0400 Systolic blood pressure 115 mm[Hg] Patricia Perla Other [facility] Other Encounters Encounter Date Encounter Type Care Provider Facility Start: 04-10-2025 ambulatory JUDICIAL ADMINISTRATIVE ASSISTANT Tiffany L Niya [facility] Start: 07-09-2024 ambulatory JUDICIAL ADMINISTRATIVE ASSISTANT Tiffany L Niya [facility] Start: 04-11-2024 End: 04-11-2024 ambulatory JUDICIAL ADMINISTRATIVE ASSISTANT Tiffany L Niya [facility] Start: 04-09-2024 End: 04-09-2024 ambulatory JUDICIAL ADMINISTRATIVE ASSISTANT Tiffany L Niya Facility:[facility] Start: 01-09-2024 End: 01-09-2024 ambulatory JUDICIAL ADMINISTRATIVE ASSISTANT Tiffany L Niya Facility:[facility] Start: 01-08-2024 ambulatory JUDICIAL ADMINISTRATIVE ASSISTANT Tiffany Niya Facilit y:[facility] [place] Start: 12-04-2023 End: 12-04-2023 ambulatory [facility] Work Phone: Start: 12-04-2023 End: 12-04-2023 Patient encounter procedure [facility] Work Phone: Start: 09-29-2023 End: 09-29-2023 Patient encounter procedure [facility] Work Phone: Start: 09-18-2023 Non-patient / [facility]-visit [facility]: Start: 09-06-2023 End: 09-06-2023 ambulatory Patricia Perla Other [facility] Other Start: 09-06-2023 Telephone encounter Patricia Perla [facility] Start: 08-10-2023 End: 08-10-2023 ambulatory Patricia Perla Other [facility] Other Start: 08-10-2023 Telephone encounter Patricia Perla [facility] Start: 07-12-2023 End: 07-12-2023 ambulatory Patricia Perla Other [facility] Other Start: 07-12-2023 Telephone encounter Patricia Perla [facility] Start: 07-03-2023 End: 07-03-2023 ambulatory Patricia Dodie Other [facility] Other Start: 07-03-2023 Telephone encounter Patricia Perla [facility] Start: 06-29-2023 End: 06-29-2023 ambulatory Patricia Dodie Other [facility] Other Start: 06-29-2023 Telephone encounter Patricia Perla [facility] Start: 06-28-2023 End: 06-28-2023 ambulatory Patricia Dodie Other [facility] Other Start: 06-28-2023 Telephone encounter Patricia Perla [facility] Start: 06-27-2023 End: 06-27-2023 ambulatory Patricia Dodie Other [facility] Other Start: 06-27-2023 Office outpatient vi sit 25 minutes Patricia Perla [facility] Start: 06-15-2023 End: 06-15-2023 ambulatory Patricia Dodie Other [facility] Other Start: 06-15-2023 Telephone encounter Patricia Perla [facility] Start: 05-04-2023 (Televisit) Televisit Patricia Dodie [facility] Start: 05-04-2023 End: 05-04-2023 ambulatory Patricia Dodie Other [facility] Other Start: 05-04-2023 Telephone encounter Patricia Perla [facility] Start: 04-19-2023 End: 04-19-2023 ambulatory Patricia Perla Other [facility] Other Start: 04-19-2023 Telephone encounter Patricia Perla [facility] Start: 03-27-2023 End: 03-27-2023 ambulatory Patricia Perla Other [facility] Other Start: 03-27-2023 Office outpatient vi sit 15 minutes Patricia Dodie [facility] Start: 03-21-2023 End: 03-21-2023 ambulatory Patricia Perla Other [facility] Other Start: 03-21-2023 Telephone encounter Patricia Perla [facility] Start: 02-21-2023 End: 02-21-2023 ambulatory Patricia Perla Other [facility] Other Start: 02-21-2023 Telephone encounter Patricia Perla [facility] Start: 01-26-2023 End: 01-26-2023 ambulatory Patricia Perla Other [facility] Other Start: 01-26-2023 Telephone encounter Patricia Perla [facility] Start: 01-19-2023 End: 01-19-2023 ambulatory Patricia Perla Other [facility] Other Start: 01-19-2023 Telephone encounter Patricia Perla [facility] Start: 12-28-2022 End: 12-28-2022 ambulatory Patricia Perla Other [facility] Other Start: 12-28-2022 Office outpatient vi sit 25 minutes Patricia Perla [facility] Start: 05-05-2022 Adult health examination Patricia Dodie Other [facility] Other Start: 05-05-2022 Problem, abnormal examination Patricia Perla Other [facility] Other Start: 05-05-2022 End: 05-06-[address] GOMEZ Robyn DODIE Facility:[facility] Procedures Date Procedure Procedure Detail Performing Clinician Start: 05-29-2018 Screening for malign ant neoplasm of colon Patricia Dodie Other Start: 08-16-2016 Screening mammography M evie Perla Other Screening for malign ant neoplasm of breast Patricia Dodie Other Payers Date Payer Category Payer Unknown [id number] 1958 Unknown [id number] 1955 Unknown [id number] 2.16.84 [id number] 1955 Unknown [id number] 2.16.8 [id number] 1955 Unknown [id number] 2.16.8 [id number] 1955 Unknown [id number] 2.16.8 [id number] 1955 Unknown [id number] 2.16.8 [id number] 1955 Unknown [id number] 2.16.8 [id number] 1955 Unknown [id number] 2.16.8 [id number] 1955 Unknown [id number] 2.16.8 [id number] Unknown MMO [id number] Unknown [place] BC/BS [id number] Social History Date Type Detail Facility Unknown if ever smoked [facility] Other Sex Assigned At Sex Assigned At Bir th [facility] Other Start: 09-18-2023 Tobacco smoking status NHIS Smoker (finding) [facility] Start: 1955 Sex Assigned At Female [facility] Clinical Notes 12-28-2022 to 04-11-2024 Note Date & Type Note Facility 04-11-2024 Note Nurse Consultation [place] Reason for Visit Here for lab draw Assessment/Plan Encounter for annual wellness exam in Medicare patient (Z00.00: Encounter for general adult medical examination without abnormal findings) Medications acetaminophen-hydrocodone 325 mg-10 mg oral tablet, 1 tab(s), Oral, TID alprazolam 1 mg Tab, 1 mg= 1 tab(s), Oral, BID benazepril-hydrochlorothiazide 20 mg-25 mg oral tablet, 1 tab(s), Oral, Daily, 3 refills diclofenac sodium 75 mg Oral EC Tab, 75 mg= 1 tab(s), Oral, BID diphenhydrAMINE 25 mg Cap, Oral, Daily paroxetine 40 mg Tab, 40 mg= 1 tab(s), Oral, Daily, 3 refills Allergies sulfa drugs (Tongue swelling) Immunizations Vaccine Date Status Comments influenza virus vaccine, inactivated - Not Given Patient Refuses [facility] 04-09-2024 Note Patient Education Cardiovascular Hypertension, Adult High blood pressure (hypertension) is when the force of blood pumping through the arteries is too strong. The arteries are the blood vessels that carry blood from the heart throughout the body. Hypertension forces the heart to work harder to pump blood and may cause arteries to become narrow or stiff. Untreated or uncontrolled hypertension can lead to a heart attack, heart failure, a stroke, kidney disease, and other problems. A blood pressure reading consists of a higher number over a lower number. Ideally, your blood pressure should be below 120/80. The first ( top ) number is called the systolic pressure. It is a measure of the pressure in your arteries as your heart beats. The second ( bottom ) number is called the diastolic pressure. It is a measure of the pressure in your arteries as the heart relaxes. What are the causes? The exact cause of this condition is not known. There are some conditions that result in high blood pressure. What increases the risk? Certain factors may make you more likely to develop high blood pressure. Some of these risk factors are under your control, including: ? Smoking. ? Not getting enough exercise or physical activity. ? Being overweight. ? Having too much fat, sugar, calories, or salt (sodium) in your diet. ? Drinking too much alcohol. Other risk factors include: ? Having a personal history of heart disease, diabetes, high cholesterol, or kidney disease. ? Stress. ? Having a family history of high blood pressure and high cholesterol. ? Having obstructive sleep apnea. ? Age. The risk increases with age. What are the signs or symptoms? High blood pressure may not cause symptoms. Very high blood pressure (hypertensive crisis) may cause: ? Headache. ? Fast or irregular heartbeats (palpitations). ? Shortness of breath. ? Nosebleed. ? Nausea and vomiting. ? Vision changes. ? Severe chest pain, dizziness, and seizures. How is this diagnosed? This condition is diagnosed by measuring your blood pressure while you are seated, with your arm resting on a flat surface, your legs uncrossed, and your feet flat on the floor. The cuff of the blood pressure monitor will be placed directly against the skin of your upper arm at the level of your heart. Blood pressure should be measured at least twice using the same arm. Certain conditions can cause a difference in blood pressure between your right and left arms. If you have a high blood pressure reading during one visit or you have normal blood pressure with other risk factors, you may be asked to: ? Return on a different day to have your blood pressure checked again. ? Monitor your blood pressure at home for 1 week or longer. If you are diagnosed with hypertension, you may have other blood or imaging tests to help your health care provider understand your overall risk for other conditions. How is this treated? This condition is treated by making healthy lifestyle changes, such as eating healthy foods, exercising more, and reducing your alcohol intake. You may be referred for counseling on a healthy diet and physical activity. Your health care provider may prescribe medicine if lifestyle changes are not enough to get your blood pressure under control and if: ? Your systolic blood pressure is above 130. ? Your diastolic blood pressure is above 80. Your personal target blood pressure may vary depending on your medical conditions, your age, and other factors. Follow these instructions at home: Eating and drinking ? Eat a diet that is high in fiber and potassium, and low in sodium, added sugar, and fat. An example of this eating plan is called the DASH diet. DASH stands for Dietary Approaches to Stop Hypertension. To eat this way: ? Eat plenty of fresh fruits and vegetables. Try to fill one half of your plate at each meal with fruits and vegetables. ? Eat whole grains, such as whole-wheat pasta, brown rice, or whole-grain bread. Fill about one fourth of your plate with whole grains. ? Eat or drink low-fat dairy products, such as skim milk or low-fat yogurt. ? Avoid fatty cuts of meat, processed or cured meats, and poultry with skin. Fill about one fourth of your plate with lean proteins, such as fish, chicken without skin, beans, eggs, or tofu. ? Avoid pre-made and processed foods. These tend to be higher in sodium, added sugar, and fat. ? Reduce your daily sodium intake. Many people with hypertension should eat less than 1,500 mg of sodium a day. ? Do not drink alcohol if: ? Your health care provider tells you not to drink. ? You are , may be , or are planning to become . ? If you drink alcohol: ? Limit how much you have to: ? 0?1 drink a day for women. ? 0?2 drinks a day for men. ? Know how much alcohol is in your drink. In the [place] one drink equals one 12 oz bottle of beer (355 mL), one 5 oz glass of wine (148 mL), (more content not included)... 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) Jul, Generalized anxiety disorder (ICD-10 - F41.1) [facility] Other 12-13-2023 Evaluation note* Encounter Date Diagnosis Assessment Notes Treatment Notes Treatment Clinical Notes Jun, Traumatic arthropathy, 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 ER if symptoms worsen. 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 Other Evaluation noteNo InformationNort [facility] Other Evaluation note* Diagnosis Onset Date Resolution Status Anxiety acute Sinusitis, acute maxillary a cute Traumatic arthropathy, right ankle and foot acute Anxiety acute Sinusitis, acute maxillary a cute Traumatic arthropathy, right ankle and foot acute [facility] Work Phone: History general Narrative - Reported* Type Description Date Medical History Anxiety Medical History Benign essential HTN Medical History Seasonal allergies Surgical History right leg surgery Surgical History C section x5 Surgical History hysterectomy Surgical History exploratory surgery Hospitalization History stomach issue [employer] Other History general [facility]ative - [facility] Other Summary Purpose Family History No Family [...] content) DATE CREATED AUTHOR 05/09/2022 [facility] DATE CREATED AUTHOR AUTHOR'S ORGANIZ ATION 04/12/2024 [facility] DATE CREATED AUTHOR AUTHOR'S ORGANIZ ATION 04/14/2024 [facility] DATE CREATED AUTHOR AUTHOR'S ORGANIZ ATION 04/15/2024 [facility] REASON FOR VISIT (unrecogniz ed section [...] BE BASED ON THE PRIMARY CLINICAL RECORDS. [employer] [facility]. provides no warranty or guarantee of the accuracy or completeness of information in this document.
== END 2024-04-15 10:09 | disposition home or self-care (01) ==
PROVIDERS: PCP Nurse Practitioner; Visit Provider Orthopaedic Surgery
DX: S62.321D Displaced fracture of shaft of second metacarpal bone, left hand, subsequent encounter for fracture with routine healing (principal)
CPT/HCPCS: 73130

== ENCOUNTER 2024-04-18 09:39 | Outpatient (OUT) | payer OTHER, SELFPAY ==
--- NOTE | 2024-04-18 09:44 | CT_ITS ---
[address] [address] Patient Name: CHYNA NUR MRN: [id number] date: 1955 Sex: F Assigned Patient Location: CT Current Patient Location: CT Accession/Order Number: [id number] Exam Date: 04/18/2024 10:06 Report Date: 04/18/2024 15:52 At the request of: BETHANIE RAYMOND Procedure: CT lung screening low-dose EXAMINATION: CT lung screening low-dose HISTORY: Tobacco use COMPARISON: 01/18/2023 TECHNIQUE: Axial, Coronal, and Sagittal images were created without the administration of IV contrast material. Dose reduction techniques were achieved by using automated exposure control and/or adjustment of mA and/or kV according to patient size and/or use of iterative reconstruction technique. FINDINGS: LUNGS: Stable scattered subcentimeter nodules the largest measuring 4 mm in the right lower lobe, axial image 91. No new focal nodule or mass. Minimal centrilobular emphysema PLEURA: No mass, effusion, or pneumothorax. VASCULATURE: No abnormality. ANTONIA: No mass or pathologic adenopathy. MEDIASTINUM: No mass or pathologic adenopathy. CARDIAC: No enlargement or pericardial effusion CORONARY ARTERIES: Coronary calcifications are moderate. AORTA: No aneurysm or dissection. CHEST WALL: No mass or axillary adenopathy BONES: No bone lesion or fracture. LIMITED ABDOMEN: No suspicious findings. Limited images of the upper abdomen. OTHER: Negative. CT/CT lung screening low-dose IMPRESSION: LUNG SCREENING: Lung-RADS Category 2- Benign Appearance or Behavior. Nodules with a very low likelihood of becoming a clinically active cancer due to size or lack of growth. 2. Continue annual screening with LDCT in 12 months. Electronically authenticated by: LISBETH ZHANG Date: 04/18/2024 15:52
--- NOTE | 2024-04-18 09:45 | MM_ITS ---
Patient Name: CHYNA NUR MR#: [id number] : 1955 Exam Date: 04/18/2024 Ordering Doctor: BETHANIE RAYMOND . RADIOLOGY REPORT PROCEDURE: MM TOMOSYNTHESIS SCREENING BI COMPARISON: MM TOMOSYNTHESIS SCREENING BI, 01/18/2023. INDICATIONS: breast cancer screening Calculator Name NCI Breast Cancer Risk Assessment Tool 5 Year Breast Cancer Risk 1.40% Lifetime Breast Cancer Risk 4.80% Personal Breast Cancer No Personal Ovarian Cancer No Treatments None Family Cancers Sister with bone cancer at age 42. LOCATION: [facility] BREAST COMPOSITION: The breasts are heterogeneously dense,which may obscure small masses. FINDINGS: DIAGNOSTIC CATEGORY 2--BENIGN FINDING. NO CHANGE FROM COMPARISON. Scattered benign-appearing lymph nodes are present. RIGHT BREAST: No significant suspicious finding. LEFT BREAST: No significant suspicious finding. RECOMMENDATIONS: ROUTINE MAMMOGRAM AND CLINICAL EVALUATION IN 12 MONTHS. PLEASE NOTE: A NORMAL MAMMOGRAM DOES NOT EXCLUDE THE POSSIBILITY OF BREAST CANCER. A CLINICALLY SUSPICIOUS PALPABLE LUMP SHOULD BE BIOPSIED. Dictated by: Yohannes Cade MD on 04/18/2024 at 13:52 Approved by: Yohannes Cade MD on 04/18/2024 at 13:53
--- OUTSIDE RECORDS SUMMARY | 2024-04-18 09:51 | XMS_ITS | CCD ---
Author Organization [facility] Care Team Providers Care Pricing Manager Name Role Phone DODIE, DR PATRICIA Carlson Admitting Unavailable PERLA, DR PATRICIA Carlson Attending Unavailable PERLA, DR PATRICIA Carlson Primary Care Unavailable AMBROSE, DR LISBETH Parrish Consulting Unavailable PERLA, DR PATRICIA Carlson Consulting Unavailable Perla, Patricia Unavailable Niya, CLINICAL SCIENCES PROFESSOR Tiffany L Attending Unavailable Niya, CLINICAL SCIENCES PROFESSOR Tiffany L Attending Unavailable Niya, CLINICAL SCIENCES PROFESSOR Tiffany L Attending Unavailable Niya, CLINICAL SCIENCES PROFESSOR Tiffany L Attending Unavailable Niya, CLINICAL SCIENCES PROFESSOR Tiffany L Attending Unavailable Niya, CLINICAL SCIENCES PROFESSOR Tiffany L Admitting Unavailable Niya, CLINICAL SCIENCES PROFESSOR Tiffany L Attending Unavailable Niya, CLINICAL SCIENCES PROFESSOR Tiffany L Attending Unavailable Niya, CLINICAL SCIENCES PROFESSOR Tiffany L Admitting Unavailable Niya, CLINICAL SCIENCES PROFESSOR Tiffany L Attending Unavailable Allergies Allergy Classification Reported Allergen(s) Allergy Type Date of Onset Reaction(s) Facility (1 source) Sulfonamides (Antibiotic) Drug allergy (disorder) 02-01-20 21 [facility] Repository (6 sources) Clarithromycin Drug Allergy 12-04-19 24 Unknown, Unknown Reaction [facility] (18 sources) Nitrofurantoin Drug Allergy 12-04-19 24 Unknown, Unknown Reaction [facility] (17 sources) Sulfacetamide / Sulfur Drug Allergy Unknown [facility] Other (17 sources) Substance with sulfonamide structure and antibacterial mechanism of action (substance) Drug allergy Unknown [facility] Other (14 sources) Sulfamethoxazole / Trimethoprim Drug Allergy 04-08-20 13 Unknown [facility] Other (2 sources) Allergies Reconciled Propensity to adverse reactions Unknown [facility] Other (14 sources) Biaxin *MACROLIDES* Propensity to adverse reactions 08-16-19 17 Unknown [facility] Other (2 sources) patient allergy list reviewed by nurse or physicia Propensity to adverse reactions 11-30-19 Comment:Done [facility] Other (1 source) Sulfacetamide Drug Allergy 12-04-19 24 Unknown Reaction [facility] (1 source) Sulfamethoxazole Drug Allergy 12-04-19 24 Unknown Reaction [facility] (1 source) Sulfonamides (Antibiotic) Allergy to substance 12-04-19 24 Unknown Reaction [facility] (1 source) Sulfur Drug Allergy 12-04-19 24 Unknown Reaction [facility] (1 source) Trimethoprim Drug Allergy 12-04-19 24 Unknown Reaction [facility] (1 source) Sulfonamides (Antibiotic); Translations: [sulfa drugs] Propensity to adverse reactions (disorder) [facility] Repository Medications Current Medications Medication [...] DAY NEEDED for 30 days November, Active [id number] 200 actuat albuterol 0.09 mg/actuat metered dose [...] Ab IA Ql Comment Invalid Interpretation Code [facility] Comment on above: Result Comment: Not infected with HCV unless early or acute infection is suspected (which may be delayed in an immunocompromised individual), or other evidence exists to indicate HCV infection. Performed at: [facility] [id number] PhD Delmi No Performed By: #### 2 [id number] #### [facility] [address] [place] [address] HCV Antibody RFX to [facility] 04-13-2024 HCV IgG IA Ql Non-Reactive Invalid Interpretation Code Non Reactive [facility] Comment on above: Result Comment: Perf ormed at: [facility] [id number] PhD Delmi No Performed By: #### 2 [id number] #### [facility] [address] [place] [address] CMPon 04-11-2024 Albumin [Mass/Vol] 3.9 g/dL Normal 3.3-5.0 [facility] Comment on above: Performed By: #### 2 [id number] #### [facility] [address] [place] [address] Albumin/Globulin (S) [Mass conc ratio] 1.4 Normal 1.1-2.2 [facility] Comment on above: Performed By: #### 2 [id number] #### [facility] [address] [place] [address] ALP [Catalytic activity/Vol] 111 Int._Unit/L High 21-98 [facility] Comment on above: Performed By: #### 2 [id number] #### [facility] [address] [place] [address] ALT No additional P-5'-P [Catalytic activity/Vol] 21 Int._Unit/L Normal 6-46 [facility] Comment on above: Performed By: #### 2 [id number] #### [facility] [address] [place] [address] Anion gap [Moles/Vol] 10 mmol/L Normal 6-16 [facility] Comment on above: Performed By: #### 2 [id number] #### [facility] [address] [place] [address] AST [Catalytic activity/Vol] 20 Int._Unit/L Normal 5-43 [facility] Comment on above: Performed By: #### 2 [id number] #### [facility] [address] [place] [address] Bilirubin [Mass/Vol] 0.3 mg/dL Normal 0.0-1.1 [facility] Comment on above: Performed By: #### 2 [id number] #### [facility] [address] [place] [address] Calcium [Mass/Vol] 9.2 mg/dL Normal 8.9-11.1 [facility] Comment on above: Performed By: #### 2 [id number] #### [facility] [address] [place] [address] Chloride [Moles/Vol] 106 mmol/L Normal 101-111 [facility] Comment on above: Performed By: #### 2 [id number] #### [facility] [address] [place] [address] CO2 [Moles/Vol] 27 mmol/L Normal 21-31 [facility] Comment on above: Performed By: #### 2 [id number] #### [facility] [address] [place] [address] Creatinine [Mass/Vol] 0.7 mg/dL Normal 0.5-1.3 [facility] Comment on above: Performed By: #### 2 [id number] #### [facility] [address] [place] [address] Globulin (S) [Mass/Vol] 2.7 g/dL Normal 1.4-4.0 [facility] Comment on above: Performed By: #### 2 [id number] #### [facility] [address] [place] [address] Glucose [Mass/Vol] 89 mg/dL Normal 55-199 [facility] Comment on above: Performed By: #### 2 [id number] #### [facility] [address] [place] [address] Potassium [Moles/Vol] 4.1 mmol/L Normal 3.5-5.3 [facility] Comment on above: Performed By: #### 2 [id number] #### [facility] [address] [place] [address] Protein [Mass/Vol] 6.6 g/dL Normal 6.0-7.8 [facility] Comment on above: Performed By: #### 2 [id number] #### [facility] [address] [place] [address] Sodium [Moles/Vol] 139 mmol/L Normal 135-145 [facility] Comment on above: Performed By: #### 2 [id number] #### [facility] [address] [place] [address] Urea nitrogen [Mass/Vol] 23 mg/dL High 5-21 [facility] Comment on above: Performed By: #### 2 [id number] #### [facility] [address] [place] [address] Urea nitrogen/Creatini ne [Mass ratio] 33 No Units High 10-20 [facility] Comment on above: Performed By: #### 2 [id number] #### [facility] [address] [place] [address] Lipid Panelon 04-11-2024 Cholesterol [Mass/Vol] 221 mg/dL High 120-200 [facility] Comment on above: Performed By: #### 2 [id number] #### [facility] [address] [place] [address] Cholesterol in HDL [Mass/Vol] 48 mg/dL Invalid Interpretation Code [facility] Comment on above: Result Comment: '>= 60 LOW RISK' '<= 40 HIGH RISK' Performed By: #### 2 [id number] #### [facility] [address] [place] [address] Cholesterol in LDL [Mass/Vol] 164 mg/dL High <=129 [facility] Comment on above: Performed By: #### 2 [id number] #### [facility] [address] [place] [address] Cholesterol in VLDL [Mass/Vol] 35 mg/dL Normal 7-40 [facility] Comment on above: Performed By: #### 2 [id number] #### [facility] [address] [place] [address] Triglyceride [Mass/Vol] 177 mg/dL High <=149 [facility] Comment on above: Performed By: #### 2 [id number] #### [facility] [address] [place] [address] eGFRon 04-11-2024 eGFR 94 mL/min/1.73 m2 Normal >=59 [facility] Comment on above: Order Comment: Order added by Discern Expert. Performed By: #### 1 [id number] #### [facility] [address] [place] [address] Ambulatory Visit Summaryon 0 04-09-2024 Ambulatory Visit [...] Appointments 2023 8:20 AM EDT With: Where: [address] [address]- Monday 8:20 AM EST With: Tiffany Zuñiga Where: [address] [id number]- 2024 11:00 AM EDT With: Where: [address] [id number]- You Need to Complete the Following Comprehensive [...] caused by (more content not included)... Normal [facility] Ambulatory Visit Summary Ambulatory Visit Summary NIYA [...] Appointments 2023 8:20 AM EDT With: Where: [address] [address]- Monday 8:20 AM EST With: Tiffany Zuñiga Where: [address] [address]- 2024 11:00 AM EDT With: Where: [address] [address]- You Need to Complete the [...] choosing us for your care. Normal [facility] Family Medicine Office/Clini c Noteon 04-09-2024 [...] of clutter to prevent tripping and/or falling. [place] Advance Directives reviewed. Documents provided to patient [...] pain as a 8 out of 10, [place] and diclofenac prescribed. Reviewed all outside providers [...] as needed. (more content not included)... Normal [facility] Comment on above: Result Comment: [...] inactivated - Not Given Patient Refuses Normal [facility] Comment on above: Result Comment: Elec tronically Signed By: Tiffany Zuñiga\.br\Date and Time Signed: 04/09/24 09:33 EDT Medication [place] 024 Medication Consent [id number] 0TIFF Normal [facility] Ambulatory Visit Summaryon 0 01-09-2024 [...] Appointments Monday 8:00 AM EDT With: Where: [facility] [place] Normal [address] [place] [address]- \.br\ Medications\.br \ What How Much When Instructions\.b r\ Changed benazepril-hydr ochlorothiazide (benazepril-hyd rochlorothiazid e 20 mg-25 mg oral tablet) 1 Tablets By Mouth Every day TAKE 1 TABLET BY MOUTH EVERY DAY Pickup at [facility]/pharmacy #[id number]\.br\ Changed paroxetine (paroxetine 40 mg Tab) 1 Tablets By Mouth Every day TAKE 1 TABLET BY MOUTH EVERY DAY Pickup at [facility]/pharmacy #[id number]\.br\ Unchanged acetaminophen-h ydrocodone (acetaminophen- hydrocodone 325 [...] DAYS *DNF * \.br\ Pharmacy Information\.br \ [facility]/pharmacy #[id number]: [address], [place] [phone]\.br\ Allergies\.br\ sulfa drugs (Tongue swelling)\.br\ Problems\.br\ Ongoing [...] for choosing us for your care.\.br\ \.br\ [facility] Auth for Release of Medical Recordson 01-09-2024 Auth for Release of Medical Records [id number] TIFF Normal [facility] Family Medicine Office/Clini c Noteon 01-09-2024 Family Medicine Office/Clinic Note HPI Staff Núñez is a 68 year old female presenting to establish care Establish Care: History: Any previous diagnosis: Anxiety , HTN, Chronic leg pain History of seeing any specialist: When was your last doctors visit: Last provider: Dr Perla Any recent labs: had some at [facility] unsure what was drawn BEKAH: 8 Health Maintenance UTD: Colonoscopy: 20 years ago normal Mammogram: Fall 2022 normal [facility] Pelvic/Pap: nothing since hysterectomy 27 years [...] today. she had labs done recently at [facility] will obtain those for her chart. [...] TAKE 1 TABLET BY MOUTH EVERY DAY, [facility]/pharmacy #[id number], 163.5, cm, 01/09/24 13:01:00 EDT, Height/Length Dosing, 94.7, kg, 01/09/24 13:01:00 EDT, Weight Dosing paroxetine, 40 mg = 1 tab(s), Oral, Daily, TAKE 1 TABLET BY MOUTH EVERY DAY, # 90 tab(s), Refills(s) 3, Pharmacy: [facility]/pharmacy #[id number], 163.5, cm, 01/09/24 13:01:00 EDT, Height/Length [...] change: No. Household tobacco concerns: No., 01/09/2024 [facility] Comment on above: Result Comment: Elec [...] by: LISBETH ZHANG Date: 2022-05-05 19:08 Normal [facility] Vital Signs Date Time Vital Sign Value Performing Clinician Facility 12-04-2023 10:06-0400 Body height 170.18 cm [facility] 12-04-2023 10:06-0400 Body mass index (BMI) [Ratio] 33 kg/m2 [facility] 12-04-2023 10:06-0400 Body weight 95.76 kg [facility] 12-04-2023 10:06-0400 Diastolic blood pressure 67 mm[Hg] [facility] 12-04-2023 10:06-0400 Heart rate 99 /min [facility] 12-04-2023 10:06-0400 Systolic blood pressure 102 mm[Hg] [facility] 09-29-2023 10:10-0500 Body height 170.18 cm [facility] 09-29-2023 10:10-0500 Body mass index (BMI) [Ratio] 33.4 kg/m2 [facility] 09-29-2023 10:10-0500 Body weight 96.72 kg [facility] 09-29-2023 10:10-0500 Diastolic blood pressure 69 mm[Hg] [facility] 09-29-2023 10:10-0500 Heart rate 94 /min [facility] 09-29-2023 10:10-0500 Systolic blood pressure 108 mm[Hg] [facility] 06-27-2023 10:00-0500 Body height 170.18 cm Patricia Perla Other [facility] Other 06-27-2023 10:00-0500 Body mass index (BMI) [Ratio] 32.42 kg/m2 Patricia Perla Other [facility] Other 06-27-2023 10:00-0500 Body weight 93.9 kg Patricia Perla Other [facility] Other 06-27-2023 10:00-0500 Diastolic blood pressure 73 mm[Hg] Patricia Perla Other [facility] Other 06-27-2023 10:00-0500 Systolic blood pressure 120 mm[Hg] Patricia Perla Other [facility] Other 03-27-2023 10:00-0400 Body height 170.18 cm Patricia Perla Other [facility] Other 03-27-2023 10:00-0400 Body mass index (BMI) [Ratio] 33.67 kg/m2 Patricia Perla Other [facility] Other 03-27-2023 10:00-0400 Body weight 97.52 kg Patricia Perla Other [facility] Other 03-27-2023 10:00-0400 Diastolic blood pressure 67 mm[Hg] Patricia Perla Other [facility] Other 03-27-2023 10:00-0400 Systolic blood pressure 98 mm[Hg] Patricia Perla Other [facility] Other 12-28-2022 10:30-0400 Body height 170.18 cm Patricia Perla Other [facility] Other 12-28-2022 10:30-0400 Body mass index (BMI) [Ratio] 33.51 kg/m2 Patricia Perla Other [facility] Other 05-31-2023 10:30-0400 Body weight 97.07 kg Patricia Perla Other [facility] Other 12-28-2022 10:30-0400 Diastolic blood pressure 74 mm[Hg] Patricia Perla Other [facility] Other 12-28-2022 10:30-0400 Systolic blood pressure 115 mm[Hg] Patricia Perla Other [facility] Other Encounters Encounter Date Encounter Type Care Provider Facility Start: 04-10-2025 ambulatory CLINICAL SCIENCES PROFESSOR Tiffany L Niya [facility] Start: 07-09-2024 ambulatory CLINICAL SCIENCES PROFESSOR Tiffany L Niya [facility] Start: 04-11-2024 End: 04-11-2024 ambulatory CLINICAL SCIENCES PROFESSOR Tiffany L Niya [facility] Start: 04-09-2024 End: 04-09-2024 ambulatory CLINICAL SCIENCES PROFESSOR Tiffany L Niya [facility] Start: 01-09-2024 End: 01-09-2024 ambulatory CLINICAL SCIENCES PROFESSOR Tiffany L Niya [facility] Start: 01-08-2024 ambulatory CLINICAL SCIENCES PROFESSOR Tiffany Niya Facilit y:[facility] [place] Start: 12-04-2023 End: 12-04-2023 ambulatory [facility] Work Phone: Start: 12-04-2023 End: 12-04-2023 Patient encounter procedure [facility] Work Phone: Start: 09-29-2023 End: 09-29-2023 Patient encounter procedure [facility] Work Phone: Start: 09-18-2023 Non-patient / [facility]visit [facility] Work Phone: Start: 09-06-2023 End: 09-06-2023 ambulatory Patricia Perla Other [facility] Other Start: 09-06-2023 Telephone encounter Patricia Perla [facility] Start: 08-10-2023 End: 08-10-2023 ambulatory Patricia Perla Other [facility] Other Start: 08-10-2023 Telephone encounter Patricia Perla [facility] Start: 07-12-2023 End: 07-12-2023 ambulatory Patricia Perla Other [facility] Other Start: 07-12-2023 Telephone encounter Patricia Perla [facility] Start: 07-03-2023 End: 07-03-2023 ambulatory Patricia Dodie Other [facility] Other Start: 07-03-2023 Telephone encounter Patricia Perla [facility] Start: 06-29-2023 End: 06-29-2023 ambulatory Patricia Dodie Other [facility] Other Start: 06-29-2023 Telephone encounter Patricia Perla [facility] Start: 06-28-2023 End: 06-28-2023 ambulatory Patricia Dodie Other [facility] Other Start: 06-28-2023 Telephone encounter Patricia Perla [facility] Start: 06-27-2023 End: 06-27-2023 ambulatory Patricia Dodie Other [facility] Other Start: 06-27-2023 Office outpatient vi sit 25 minutes Patricia Perla [facility] Start: 06-15-2023 End: 06-15-2023 ambulatory Patricia Dodie Other [facility] Other Start: 06-15-2023 Telephone encounter Patricia Perla [facility] Start: 05-04-2023 (Televisit) Televisit Patricia Dodie [facility] Start: 05-04-2023 End: 05-04-2023 ambulatory Patricia Dodie Other [facility] Other Start: 05-04-2023 Telephone encounter Patricia Perla [facility] Start: 04-19-2023 End: 04-19-2023 ambulatory Patricia Perla Other [facility] Other Start: 04-19-2023 Telephone encounter Patricia Perla [facility] Start: 03-27-2023 End: 03-27-2023 ambulatory Patricia Perla Other [facility] Other Start: 03-27-2023 Office outpatient vi sit 15 minutes Patricia Dodie [facility] Start: 03-21-2023 End: 03-21-2023 ambulatory Patricia Perla Other [facility] Other Start: 03-21-2023 Telephone encounter Patricia Perla [facility] Start: 02-21-2023 End: 02-21-2023 ambulatory Patricia Perla Other [facility] Other Start: 02-21-2023 Telephone encounter Patricia Perla [facility] Start: 01-26-2023 End: 01-26-2023 ambulatory Patricia Perla Other [facility] Other Start: 01-26-2023 Telephone encounter Patricia Perla [facility] Start: 01-19-2023 End: 01-19-2023 ambulatory Patricia Perla Other [facility] Other Start: 01-19-2023 Telephone encounter Patricai Perla [facility] Start: 12-28-2022 End: 12-28-2022 ambulatory Patricia Perla Other [facility] Other Start: 12-28-2022 Office outpatient vi sit 25 minutes Patricia Perla [facility] Start: 05-05-2022 Adult health examination Patricia Dodie Other [facility] Other Start: 05-05-2022 Problem, abnormal examination Patricia Perla Other [facility] Other Start: 05-05-2022 End: 05-06-[address] GOMEZ Robyn DODIE Facility:[facility] Procedures Date Procedure Procedure Detail Performing Clinician Start: 05-29-2018 Screening for malign ant neoplasm of colon Patricia Dodie Other Start: 08-16-2016 Screening mammography M evie Perla Other Screening for malign ant neoplasm of breast Patricia Dodie Other Payers Date Payer Category Payer Unknown [id number] 1958 Unknown [id number] 1955 Unknown [id number] 2.16.84 [id number] 1955 Unknown [id number] 2.16.8 [id number] 1955 Unknown [id number] 2.16.8 [id number] 1955 Unknown [id number] 2.16.8 [id number] 1956 Unknown [id number] 2.16.8 [id number] 1956 Unknown [id number] 2.16.8 [id number] 1956 Unknown [id number] 2.16.8 [id number] 1956 Unknown [id number] 2.16.8 [id number] Unknown MMO [id number] Unknown [place] [id number] Social History Date Type Detail Facility Unknown if ever smoked [facility] Other Sex Assigned At Sex Assigned At Bir th [facility] Other Start: 09-18-2023 Tobacco smoking status NHIS Smoker (finding) [facility] Start: 1955 Sex Assigned At Female F [facility] Clinical Notes 12-28-2022 to 04-11-2024 Note [...] vaccine, inactivated - Not Given Patient Refuses [facility] 04-09-2024 Note Patient Education Cardiovascular Hypertension, Adult [...] wine (148 mL), (more content not included)... 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) Jul, Generalized anxiety disorder (ICD-10 - F41.1) [facility] Other 12-13-2023 Evaluation note* Encounter Date Diagnosis Assessment Notes Treatment Notes Treatment Clinical Notes Jun, Traumatic arthropathy, 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 ER if symptoms worsen. 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 Other Evaluation noteNo InformationNort [employer] Other Evaluation note* Diagnosis Onset Date Resolution Status Anxiety acute Sinusitis, acute maxillary a cute Traumatic arthropathy, right ankle and foot acute Anxiety acute Sinusitis, acute maxillary a cute Traumatic arthropathy, right ankle and foot acute [facility] Work Phone: History general Narrative - Reported* Type Description Date Medical History Anxiety Medical History Benign essential HTN Medical History Seasonal allergies Surgical History right leg surgery Surgical History C section x5 Surgical History hysterectomy Surgical History exploratory surgery Hospitalization History stomach issue [facility] Other History general Narrative - [facility] Other Summary Purpose Family History No Family [...] CREATED AUTHOR AUTHOR'S ORGANIZ ATION 04/12/2024 [facility] DATE CREATED AUTHOR AUTHOR'S ORGANIZ ATION 04/14/2024 [facility] DATE CREATED AUTHOR AUTHOR'S ORGANIZ ATION 04/15/2024 [facility] REASON FOR VISIT (unrecogniz [...] BE BASED ON THE PRIMARY CLINICAL RECORDS. [employer] [facility]. provides no warranty or guarantee of the accuracy or completeness of information in this document.
--- NOTE | 2024-04-18 10:08 | XR_ITS ---
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 TECHNIQUE: Dual-energy X-ray absorptiometry (DEXA) bone density study performed for the axial skeleton. FINDINGS: Bone mineral density AP spine L1-L4 measures 0.906 g/sq cm. T score -2.3. WHO classification: Osteopenia Bone mineral density femoral neck measures 0.828 g/sq cm. T score -1.5. Osteopenia XR/XR DEXA axial skeleton IMPRESSION: Osteopenia. Moderate fracture risk Pharmacologic treatment recommendations * No uniform recommendation applies to all patients. Management plans must be individualized. * Consider initiating pharmacologic treatment in postmenopausal women and men >= 50 years of age who have the following: Primary fracture prevention: * T-score <= - 2.5 at the femoral neck, total hip, lumbar spine, 33% radius (some uncertainty with existing data) by DXA. * Low bone mass (osteopenia: T-score between - 1.0 and - 2.5) at the femoral neck or total hip by DXA with a 10-year hip fracture risk >= 3% or a 10-year major osteoporosis-related fracture risk >= 20% (i.e., clinical vertebral, hip, forearm, or proximal humerus) based on the [place]-adapted FRAXregistered model. Secondary fracture prevention: * Fracture of the hip or vertebra regardless of BMD [4, 5]. * Fracture of proximal humerus, pelvis, or distal forearm in persons with low bone mass (osteopenia: T-score between - 1.0 and - 2.5). The decision to treat should be individualized in persons with a fracture of the proximal humerus, pelvis, or distal forearm who do not have osteopenia or low BMD [12, 13]. Seven Carrillo MSspan SL, Swapna KL, Imer EM, Monserrat KG, AJ, Sharmin ES. The clinician's guide to prevention and treatment of osteoporosis. Osteoporos Int. 2021;33(10):1647-6531. doi: 10.1007/j11543-828-81661-b. Epub 2021Nov 25. Erratum in: Osteoporos Int. 2021Feb 24;: PMID: [id number]; PMCID: [id number]. Electronically authenticated by: LISBETH ZHANG Date: 04/18/2024 12:59
== END 2024-04-18 09:40 | disposition home or self-care (01) ==
LOC: CT 09:39
PROVIDERS: PCP Nurse Practitioner; Visit Provider Nurse Practitioner
DX: E28.39 Other primary ovarian failure (principal); Z12.31 Encounter for screening mammogram for malignant neoplasm of breast; Z80.8 Family history of malignant neoplasm of other organs or systems; M85.80 Other specified disorders of bone density and structure, unspecified site; Z87.891 Personal history of nicotine dependence
CPT/HCPCS: 71271; 77063; 77067; 77080

== ENCOUNTER 2024-04-29 09:27 | Outpatient (OUT) | payer OTHER, SELFPAY ==
--- NOTE | 2024-04-29 | XR_ITS ---
The [address] [address] Patient Name: CHYNA NUR MRN: [id number] date: 1955 Sex: F Assigned Patient Location: Current Patient Location: Accession/Order Number: [id number] Exam Date: 04/29/2024 09:28 Report Date: 04/30/2024 05:39 At the request of: RO WOOD Procedure: XR hand LT min 3V PROCEDURE: XR hand LT min 3V HISTORY: LEFT HAND PAIN COMPARISON: XR hand left 04/15/2024 FINDINGS: BONES:Prior pinning of the second metacarpal secondary to base of metacarpal transverse fracture; no convincing intra-articular extension. Alignment is maintained and there is slight increased density fracture line. SOFT TISSUES:No visible soft tissue swelling. EFFUSION:None visible. OTHER: Negative. XR/XR hand LT min 3V IMPRESSION: 1. Images were obtained to cast material which slightly limits evaluation. 2. Stable pinning and alignment of the second metacarpal fracture with suspected changes of early bone healing. Electronically authenticated by: RO ASHRAF Date: 04/30/2024 05:39
== END 2024-04-29 09:28 | disposition home or self-care (01) ==
LOC: EC 09:27
PROVIDERS: PCP Nurse Practitioner; Visit Provider Orthopaedic Surgery
DX: M79.642 Pain in left hand (principal); S62.341D Nondisplaced fracture of base of second metacarpal bone, left hand, subsequent encounter for fracture with routine healing
CPT/HCPCS: 73130

== ENCOUNTER 2024-05-06 11:57 | Outpatient (OUT) | payer OTHER, SELFPAY ==
--- NOTE | 2024-05-06 | XR_ITS ---
The [address] [address] Patient Name: CHYNA NUR MRN: [id number] date: 1955 Sex: F Assigned Patient Location: Current Patient Location: Accession/Order Number: [id number] Exam Date: 05/06/2024 11:58 Report Date: 05/08/2024 05:37 At the request of: RO WOOD Procedure: XR hand LT min 3V PROCEDURE: XR hand LT min 3V HISTORY: LEFT HAND PAIN COMPARISON: XR hand left 04/29/2024 FINDINGS: BONES:Prior fracture through base of second metacarpal with pinning of the second metacarpal to the third metacarpal; unchanged. Slightly increased density of the fracture line. SOFT TISSUES:Images were obtained to cast material. EFFUSION:None visible. OTHER: Negative. XR/XR hand LT min 3V IMPRESSION: 1. Stable alignment and suspected early changes of osseous healing involving base of second metacarpal fracture. Electronically authenticated by: RO ASHRAF Date: 05/08/2024 05:37
--- OUTSIDE RECORDS SUMMARY | 2024-05-06 12:16 | XMS_ITS | CCD ---
Author Organization [facility] Care Team Providers Care Health Information Systems Technician Name Role Phone DODIE, DR PATRICIA Carlson Admitting Unavailable PERLA, DR PATRICIA Carlson Attending Unavailable PERLA, DR PATRICIA Carlson Primary Care Unavailable [place], DR LISBETH Parrish Consulting Unavailable PERLA, DR PATRICIA Carlson Consulting Unavailable Perla, Patricia Sahu Niya, CLOTHES IRONER Tiffany L Admitting Unavailable Niya, CLOTHES IRONER Tiffany L Attending Unavailable Niya, CLOTHES IRONER Tiffany L Attending Unavailable Niya, CLOTHES IRONER Tiffany L Attending Unavailable Niya, CLOTHES IRONER Tiffany L Attending Unavailable Niya, CLOTHES IRONER Tiffany L Attending Unavailable Niya, CLOTHES IRONER Tiffany L Attending Unavailable Niya, CLOTHES IRONER Tiffany L Admitting Unavailable Niya, CLOTHES IRONER Tiffany L Attending Unavailable Niya, CLOTHES IRONER Tiffany L Attending Unavailable Allergies Allergy Classification Reported Allergen(s) Allergy Type Date of Onset Reaction(s) Facility (1 source) Sulfonamides (Antibiotic) Drug allergy (disorder) 02-01-20 21 [facility] Repository (6 sources) Clarithromycin Drug Allergy 12-04-19 24 Unknown, Unknown Reaction [facility] (18 sources) Nitrofurantoin Drug Allergy 12-04-19 24 Unknown, Unknown Reaction [facility] (17 sources) Sulfacetamide / Sulfur Drug Allergy Unknown [facility] Other (17 sources) Substance with sulfonamide structure and antibacterial mechanism of action (substance) Drug allergy Unknown [facility] Other (14 sources) Sulfamethoxazole / Trimethoprim Drug Allergy 04-08-20 13 Unknown [facility] Other (2 sources) Allergies Reconciled Propensity to adverse reactions Unknown [facility] Other (14 sources) Biaxin *MACROLIDES* Propensity to adverse reactions 08-16-19 17 Unknown [facility] Other (2 sources) patient allergy list reviewed by nurse or physicia Propensity to adverse reactions 11-30-19 Comment:Done [facility] Other (1 source) Sulfacetamide Drug Allergy 12-04-19 24 Unknown Reaction [facility] (1 source) Sulfamethoxazole Drug Allergy 12-04-19 24 Unknown Reaction [facility] (1 source) Sulfonamides (Antibiotic) Allergy to substance 12-04-19 Unknown Reaction [facility] (1 source) Sulfur Drug Allergy 12-04-19 24 Unknown Reaction [facility] (1 source) Trimethoprim Drug Allergy 12-04-19 24 Unknown Reaction [facility] (1 source) Sulfonamides (Antibiotic); Translations: [sulfa drugs] Propensity to adverse reactions (disorder) [facility] Repository Medications Current Medications Medication Drug [...] DAY NEEDED for 30 days November, Active [id number] 200 actuat albuterol 0.09 mg/actuat metered dose [...] Results Test Name Value Interpretation Reference Range Facility Interdisciplinary Note - Soc ial Workeron 04-16-2024 Interdisciplinary Note - Qa Software Tester Interdisciplinary Note - Qa Software Tester Consult for positive depression screen received. SW made a tc to patient to discuss these concerns. Patient reports that her anxiety and depression are mostly situational due to having a lot of things happening over the past year. She believes that this is being treated appropriately and denies need for further services at this time. She was encouraged to reach out to the office or this SW should needs or concerns arise. SW will remain available. Normal [facility] .Interpretation:on HCV Ab IA Ql Comment Invalid Interpretation Code [facility] Comment on above: Result Comment: Not infected with HCV unless early or acute infection is suspected (which may be delayed in an immunocompromised individual), or other evidence exists to indicate HCV infection. Performed at: [facility] [address] [id number] PhD Delmi No Performed By: #### 2 [id number] #### [facility] [address] [place] [address] HCV Antibody RFX to [facility] [place] 04-13-2024 HCV IgG IA Ql Non-Reactive Invalid Interpretation Code Non Reactive [facility] Comment on above: Result Comment: Perf ormed at: [facility] [address] [id number] PhD Delmi No Performed By: #### 2 [id number] #### [facility] [address] [place] [address] CMPon 04-11-2024 Albumin [Mass/Vol] 3.9 g/dL Normal 3.3-5.0 [facility] Comment on above: Performed By: #### 2 [id number] #### [facility] [address] [place] [address] Albumin/Globulin (S) [Mass conc ratio] 1.4 Normal 1.1-2.2 [facility] Comment on above: Performed By: #### 2 [id number] #### [facility] [address] [place] [address] ALP [Catalytic activity/Vol] 111 Int._Unit/L High 21-98 [facility] Comment on above: Performed By: #### 2 [id number] #### [facility] [address] [place] [address] ALT No additional P-5'-P [Catalytic activity/Vol] 21 Int._Unit/L Normal 6-46 [facility] Comment on above: Performed By: #### 2 [id number] #### [facility] [address] [place] [address] Anion gap [Moles/Vol] 10 mmol/L Normal 6-16 [facility] Comment on above: Performed By: #### 2 [id number] #### [facility] [address] [place] [address] AST [Catalytic activity/Vol] 20 Int._Unit/L Normal 5-43 [facility] Comment on above: Performed By: #### 2 [id number] #### [facility] [address] [place] [address] Bilirubin [Mass/Vol] 0.3 mg/dL Normal 0.0-1.1 [facility] Comment on above: Performed By: #### 2 [id number] #### [facility] [address] [place] [address] Calcium [Mass/Vol] 9.2 mg/dL Normal 8.9-11.1 [facility] Comment on above: Performed By: #### 2 [id number] #### [facility] [address] [place] [address] Chloride [Moles/Vol] 106 mmol/L Normal 101-111 [facility] Comment on above: Performed By: #### 2 [id number] #### [facility] [address] [place] [address] CO2 [Moles/Vol] 27 mmol/L Normal 21-31 [facility] Comment on above: Performed By: #### 2 [id number] #### [facility] [address] [place] [address] Creatinine [Mass/Vol] 0.7 mg/dL Normal 0.5-1.3 [facility] Comment on above: Performed By: #### 2 [id number] #### [facility] [address] [place] [address] Globulin (S) [Mass/Vol] 2.7 g/dL Normal 1.4-4.0 [facility] Comment on above: Performed By: #### 2 [id number] #### [facility] [address] [place] [address] Glucose [Mass/Vol] 89 mg/dL Normal 55-199 [facility] Comment on above: Performed By: #### 2 [id number] #### [facility] [address] [place] [address] Potassium [Moles/Vol] 4.1 mmol/L Normal 3.5-5.3 [facility] Comment on above: Performed By: #### 2 [id number] #### [facility] [address] [place] [address] Protein [Mass/Vol] 6.6 g/dL Normal 6.0-7.8 [facility] Comment on above: Performed By: #### 2 [id number] #### [facility] [address] [place] [address] Sodium [Moles/Vol] 139 mmol/L Normal 135-145 [facility] Comment on above: Performed By: #### 2 [id number] #### [facility] [address] [place] [address] Urea nitrogen [Mass/Vol] 23 mg/dL High 5-21 [facility] Comment on above: Performed By: #### 2 [id number] #### [facility] [address] [place] [address] Urea nitrogen/Creatinine [Mass ratio] 33 No Units High 10-20 [facility] Comment on above: Performed By: #### 2 [id number] #### [facility] [address] [place] [address] Lipid Panelon 04-11-2024 Cholesterol [Mass/Vol] 221 mg/dL High 120-200 [facility] Comment on above: Performed By: #### 2 [id number] #### [facility] [address] [place] [address] Cholesterol in HDL [Mass/Vol] 48 mg/dL Invalid Interpretation Code [facility] Comment on above: Result Comment: '>= 60 LOW RISK' '<= 40 HIGH RISK' Performed By: #### 2 [id number] #### [facility] [address] [place] [address] Cholesterol in LDL [Mass/Vol] 164 mg/dL High <=129 [facility] Comment on above: Performed By: #### 2 [id number] #### [facility] [address] [place] [address] Cholesterol in VLDL [Mass/Vol] 35 mg/dL Normal 7-40 [facility] Comment on above: Performed By: #### 2 [id number] #### [facility] [address] [place] [address] Triglyceride [Mass/Vol] 177 mg/dL High <=149 [facility] Comment on above: Performed By: #### 2 [id number] #### [facility] [address] [place] [address] eGFRon 04-11-2024 eGFR 94 mL/min/1.73 m2 Normal >=59 [facility] Comment on above: Order Comment: Order added by Discern Expert. Performed By: #### 1 [id number] #### [facility] [address] [place] [address] Ambulatory Visit Summaryon 0 04-09-2024 Ambulatory Visit [...] (benazepril-hydrochlo rothiazide 20 mg-25 mg oral tablet) diclofenac (diclofenac [...] Appointments 2023 8:20 AM EDT With: Where: [place] [id number]- Monday 8:20 AM EST With: Tiffany Zuñiga Where: [place] [id number]- 2024 11:00 AM EDT With: Where: [address] [address]- You Need to Complete the [...] What How Much When Why Instructions Unchanged acetaminophen-hydroco done (acetaminophen-hydroc odone 325 mg-10 mg oral tablet) 1 Tablets By Mouth 3 times a day Duration: 30 Days Unchanged alprazolam (alprazolam 1 mg Tab) 1 Tablets By Mouth 2 times a day Anxiety TAKE 1 TABLET BY MOUTH TWICE A DAY NEEDED Unchanged benazepril-hydrochlor othiazide (benazepril-hydrochlo rothiazide 20 mg-25 mg oral tablet) 1 Tablets [...] caused by (more content not included)... Normal [facility] Ambulatory Visit Summary Ambulatory Visit Summary [...] (benazepril-hydrochlo rothiazide 20 mg-25 mg oral tablet) diclofenac (diclofenac [...] Appointments 2023 8:20 AM EDT With: Where: [address] [address]- Monday 8:20 AM EST With: Tiffany Zuñiga Where: [address] [address]- 2024 11:00 AM EDT With: Where: [address] [address]- You Need to Complete the Following Comprehensive Metabolic Panel, Blood, Routine collect, 04/09/24, Order for future visit, Lab Collect, HTN (hypertension), Print Label By Order Location Lipid Panel, Blood, Routine collect, 04/09/24, Order for future visit, Lab Collect, Screening for ischemic heart disease, Print Label By Order Location Medications What How Much When Why Instructions Unchanged acetaminophen-hydroco done (acetaminophen-hydroc odone 325 mg-10 mg oral tablet) 1 Tablets By Mouth 3 times a day Duration: 30 Days Unchanged alprazolam (alprazolam 1 mg Tab) 1 Tablets By Mouth 2 times a day Anxiety TAKE 1 TABLET BY MOUTH TWICE A DAY NEEDED Unchanged benazepril-hydrochlor othiazide (benazepril-hydrochlo rothiazide 20 mg-25 mg oral tablet) 1 Tablets [...] for choosing us for your care. Normal [facility] Family Medicine Office/Clini c Noteon 04-09-2024 Family [...] of clutter to prevent tripping and/or falling. [place] Advance Directives reviewed. Documents provided to patient [...] pain as a 8 out of 10, [place] and diclofenac prescribed. Reviewed all outside providers [...] as needed. (more content not included)... Normal [facility] Comment on above: Result Comment: Elec [...] inactivated - Not Given Patient Refuses Normal [facility] Comment on above: Result Comment: Elec tronically Signed By: Tiffany Zuñiga\.br\Date and Time Signed: 04/09/24 09:33 EDT Medication Consenton 024 Medication Consent [id number] .[id number] Normal [facility] Ambulatory Visit Summaryon 0 01-09-2024 Ambulatory [...] Appointments Monday 8:00 AM EDT With: Where: [facility] [place] Normal [address] [place] [address]- \.br\ Medications\.b r\ What How Much When Instructions\. br\ Changed benazepril-hyd rochlorothiazi de (benazepril-hy drochlorothiaz martin 20 mg-25 mg oral tablet) 1 Tablets By Mouth Every day TAKE 1 TABLET BY MOUTH EVERY DAY Pickup at [facility]/pharmacy #[id number]\.br\ Changed paroxetine (paroxetine 40 mg Tab) 1 Tablets By Mouth Every day TAKE 1 TABLET BY MOUTH EVERY DAY Pickup at [facility]/pharmacy #[id number]\.br\ Unchanged acetaminophen- hydrocodone (acetaminophen -hydrocodone 325 mg-10 mg oral tablet) 1 Tablets [...] FOR 15 DAYS *DNF * \.br\ Pharmacy Information\.b r\ [facility]/pharmacy #[id number]: [address], [place] [id number] [phone]\.br\ Allergies\.br\ sulfa drugs (Tongue swelling)\.br\ Problems\.br\ Ongoing - Any problem that you are currently receiving treatment for.\.br\ Anxiety\.br\ Chronic pain of right lower extremity\.br\ HTN (hypertension) \.br\ Hypertension\. br\ Patient Survey\.br\ You may receive a survey via text or e-mail asking about your office visit. Please share your experience with us by completing your survey. We appreciate your feedback and thank you for choosing us for your care.\.br\ \.br\ [facility] Auth for Release of Medical Recordson 01-09-2024 Auth for Release of Medical Records [id number]. 00TIFF Normal [facility] Family Medicine Office/Clini c Noteon 01-09-2024 Family Medicine Office/Clinic Note HPI Staff Niya is a 68 year old female presenting to establish care Establish Care: History: Any previous diagnosis: Anxiety , HTN, Chronic leg pain History of seeing any specialist: When was your last doctors visit: Last provider: Dr Perla Any recent labs: had some at [facility] unsure what was drawn BEKAH: 8 Health Maintenance UTD: Colonoscopy: 20 years ago normal Mammogram: Fall 2022 normal [facility] Pelvic/Pap: nothing since hysterectomy 27 years [...] today. she had labs done recently at [facility] will obtain those for her chart. [...] TAKE 1 TABLET BY MOUTH EVERY DAY, [facility]/pharmacy #[id number], 163.5, cm, 01/09/24 13:01:00 EDT, Height/Length Dosing, 94.7, kg, 01/09/24 13:01:00 EDT, Weight Dosing paroxetine, 40 mg = 1 tab(s), Oral, Daily, TAKE 1 TABLET BY MOUTH EVERY DAY, # 90 tab(s), Refills(s) 3, Pharmacy: [facility]/pharmacy #[id number], 163.5, cm, 01/09/24 13:01:00 EDT, Height/Length [...] No. Household tobacco concerns: No., 01/09/2024 Normal [facility] Comment on above: Result Comment: Elec tronically Signed By: Tiffany Zuñiga.angella\Date and Time Signed: 01/09/24 13:31 EDT XR RIBS LT PA Sean XR RIBS LT PA CH EXAMINATION: XR [...] by: LISBETH ZHANG Date: 2022-05-05 19:08 Normal [facility] Vital Signs Date Time Vital Sign Value Performing Clinician Facility 12-04-2023 10:06-0400 Body height 170.18 cm [facility] 12-04-2023 10:06-0400 Body mass index (BMI) [Ratio] 33 kg/m2 [facility] 12-04-2023 10:06-0400 Body weight 95.76 kg [facility] 12-04-2023 10:06-0400 Diastolic blood pressure 67 mm[Hg] [facility] 12-04-2023 10:06-0400 Heart rate 99 /min [facility] 12-04-2023 10:06-0400 Systolic blood pressure 102 mm[Hg] [facility] 09-29-2023 10:10-0500 Body height 170.18 cm [facility] 09-29-2023 10:10-0500 Body mass index (BMI) [Ratio] 33.4 kg/m2 [facility] 09-29-2023 10:10-0500 Body weight 96.72 kg [facility] 09-29-2023 10:10-0500 Diastolic blood pressure 69 mm[Hg] [facility] 03-01-2024 10:10-0500 Heart rate 94 /min [facility] 09-29-2023 10:10-0500 Systolic blood pressure 108 mm[Hg] [facility] 06-27-2023 10:00-0500 Body height 170.18 cm Patricia Perla Other [facility] Other 06-27-2023 10:00-0500 Body mass index (BMI) [Ratio] 32.42 kg/m2 Patricia Perla Other [facility] Other 06-27-2023 10:00-0500 Body weight 93.9 kg Patricia Perla Other [facility] Other 06-27-2023 10:00-0500 Diastolic blood pressure 73 mm[Hg] Patricia Perla Other [facility] Other 06-27-2023 10:00-0500 Systolic blood pressure 120 mm[Hg] Patricia Perla Other [facility] Other 03-27-2023 10:00-0400 Body height 170.18 cm Patricia Perla Other [facility] Other 03-27-2023 10:00-0400 Body mass index (BMI) [Ratio] 33.67 kg/m2 Patricia Perla Other [facility] Other 03-27-2023 10:00-0400 Body weight 97.52 kg Patricia Perla Other [facility] Other 03-27-2023 10:00-0400 Diastolic blood pressure 67 mm[Hg] Patricia Perla Other [facility] Other 03-27-2023 10:00-0400 Systolic blood pressure 98 mm[Hg] Patricia Perla Other [facility] Other 12-28-2022 10:30-0400 Body height 170.18 cm Patricia Pelra Other [facility] Other 12-28-2022 10:30-0400 Body mass index (BMI) [Ratio] 33.51 kg/m2 Patricia Perla Other [facility] Other 12-28-2022 10:30-0400 Body weight 97.07 kg Patricia Perla Other [facility] Other 12-28-2022 10:30-0400 Diastolic blood pressure 74 mm[Hg] Patricia Perla Other [facility] Other 12-28-2022 10:30-0400 Systolic blood pressure 115 mm[Hg] Patricia Perla Other [facility] Other Encounters Encounter Date Encounter Type Care Provider Facility Start: 04-10-2025 ambulatory CLOTHES IRONER Tiffany L Niya [facility] Start: 07-09-2024 ambulatory CLOTHES IRONER Tiffany L Niya Facil ity: [facility] [place] Start: 04-11-2024 End: 04-11-2024 ambulatory CLOTHES IRONER Tiffany L Niya Facility:[facility] Start: 04-09-2024 End: 04-09-2024 ambulatory CLOTHES IRONER Tiffany L Niya Facility: [facility] Start: 01-09-2024 End: 01-09-2024 ambulatory CLOTHES IRONER Tiffany L Niya Facility: [facility] Start: 01-08-2024 ambulatory CLOTHES IRONER Tiffany Niya Facilit y: [facility] [place] Start: 12-04-2023 End: 12-04-2023 ambulatory [facility] Work Phone: Start: 12-04-2023 End: 12-04-2023 Patient encounter procedure [facility] Work Phone: Start: 09-29-2023 End: 09-29-2023 Patient encounter procedure [facility] Work Phone: Start: 09-18-2023 Non-patient / Non-visit [email or web address] Work Phone: Start: 09-06-2023 End: 09-06-2023 ambulatory Patricia Perla Other [facility] Other Start: 09-06-2023 Telephone encounter Patricia Dodie [facility] Start: 08-10-2023 End: 08-10-2023 ambulatory Patricia Dodie Other [facility] Other Start: 08-10-2023 Telephone encounter Patricia Dodie [facility] Start: 07-12-2023 End: 07-12-2023 ambulatory Patricia Dodie Other [facility] Other Start: 07-12-2023 Telephone encounter Patricia Perla [facility] Start: 07-03-2023 End: 07-03-2023 ambulatory Patricia Dodie Other [facility] Other Start: 07-03-2023 Telephone encounter Patricia Perla [facility] Start: 06-29-2023 End: 06-29-2023 ambulatory Patricia Dodie Other [facility] Other Start: 06-29-2023 Telephone encounter Patricia Perla [facility] Start: 06-28-2023 End: 06-28-2023 ambulatory Patricia Perla Other [facility] Other Start: 06-28-2023 Telephone encounter Patricia Perla [facility] Start: 06-27-2023 End: 06-27-2023 ambulatory Patricia Perla Other [facility] Other Start: 06-27-2023 Office outpatient vi sit 25 minutes Patricia Dodie [facility] Start: 06-15-2023 End: 06-15-2023 ambulatory Patricia Dodie Other [facility] Other Start: 06-15-2023 Telephone encounter Patricia Perla [facility] Start: 05-04-2023 (Televisit) Televisit Patricia Perla [facility] Start: 05-04-2023 End: 05-04-2023 ambulatory Patricia Dodie Other [facility] Other Start: 05-04-2023 Telephone encounter Patricia Perla [facility] Start: 04-19-2023 End: 04-19-2023 ambulatory Patricia Dodie Other [facility] Other Start: 04-19-2023 Telephone encounter Patricia Perla [facility] Start: 03-27-2023 End: 03-27-2023 ambulatory Patricia Dodie Other [facility] Other Start: 03-27-2023 Office outpatient vi sit 15 minutes Patricia Dodie [facility] Start: 03-21-2023 End: 03-21-2023 ambulatory Patricia Dodie Other [facility] Other Start: 03-21-2023 Telephone encounter Patricia Perla [facility] Start: 02-21-2023 End: 02-21-2023 ambulatory Patricia Dodie Other [facility] Other Start: 02-21-2023 Telephone encounter Patricia Perla [facility] Start: 01-26-2023 End: 01-26-2023 ambulatory Patricia Dodie Other [facility] Other Start: 01-26-2023 Telephone encounter Patricia Perla [facility] Start: 01-19-2023 End: 01-19-2023 ambulatory Patricia Dodie Other [facility] Other Start: 01-19-2023 Telephone encounter Patricia Perla [facility] Start: 12-28-2022 End: 12-28-2022 ambulatory Patricia Perla Other [facility] Other Start: 12-28-2022 Office outpatient vi sit 25 minutes Patriciamary anne Perla [facility] Start: 05-05-2022 Adult health examination Patricia Dodie Other [facility] Other Start: 05-05-2022 Problem, abnormal examination Patricia Dodie Other [facility] Other Start: 05-05-2022 End: 05-06-[address] PATRICIA PERLA Facility: Procedures Date Procedure Procedure Detail Performing Clinician Start: 05-29-2018 Screening for malign ant neoplasm of colon Patricia Perla Other Start: 08-16-2016 Screening mammography M evie Dodie Other Screening for malign ant neoplasm of breast Patricia Perla Other Payers Date Payer Category Payer Unknown [id number] 1958 Unknown [id number] 1955 Unknown [id number] 2.16.84 [id number] 1955 Unknown [id number] 2.16.8 [id number] 1955 Unknown [id number] 2.16.8 [id number] 1955 Unknown [id number] 2.16.8 [id number] 1956 Unknown [id number] 2.16.8 [id number] 1956 Unknown [id number] 2.16.8 [id number] 1956 Unknown [id number] 2.16.8 [id number] 1956 Unknown [id number] 2.16.8 [id number] Unknown MMO [id number] Unknown [place] BC/BS [id number] Social History Date Type Detail Facility Unknown if ever smoked [facility] Other Sex Assigned At Sex Assigned At Bir th [facility] Other Start: 09-18-2023 Tobacco smoking status NHIS Smoker (finding) [facility] Start: 1955 Sex Assigned At Female F [facility] Clinical Notes 12-28-2022 to 04-11-2024 Note [...] vaccine, inactivated - Not Given Patient Refuses [facility] 04-09-2024 Note Patient Education Cardiovascular Hypertension, [...] wine (148 mL), (more content not included)... 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) Jul, Generalized anxiety disorder (ICD-10 - F41.1) [facility] Other 12-13-2023 Evaluation note* Encounter Date Diagnosis Assessment Notes Treatment Notes Treatment Clinical Notes Jun, Traumatic arthropathy, 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 ER if symptoms worsen. 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 Other Evaluation noteNo InformationNortDisability Care Givers Other Evaluation note* Diagnosis Onset Date Resolution Status Anxiety acute Sinusitis, acute maxillary a cute Traumatic arthropathy, right ankle and foot acute Anxiety acute Sinusitis, acute maxillary a cute Traumatic arthropathy, right ankle and foot acute [facility] Work Phone: History general Narrative - Reported* Type Description Date Medical History Anxiety Medical History Benign essential HTN Medical History Seasonal allergies Surgical History right leg surgery Surgical History C section x5 Surgical History hysterectomy Surgical History exploratory surgery Hospitalization History stomach issue [facility] - [facility] Other Summary Purpose Family History No Family [...] pital DATE CREATED AUTHOR AUTHOR'S ORGANIZ ATION 04/14/2024 [facility] DATE CREATED AUTHOR AUTHOR'S ORGANIZ ATION 04/15/2024 [facility] DATE CREATED AUTHOR AUTHOR'S ORGANIZ ATION 04/18/2024 [facility] DATE CREATED AUTHOR AUTHOR'S ORGANIZ ATION 04/22/2024 [facility] REASON FOR VISIT (unrecogniz ed section and [...] BE BASED ON THE PRIMARY CLINICAL RECORDS. [facility] [employer] [facility]. provides no warranty or guarantee of the accuracy or completeness of information in this document.
== END 2024-05-06 11:58 | disposition home or self-care (01) ==
LOC: EC 11:57
PROVIDERS: PCP Nurse Practitioner; Visit Provider Orthopaedic Surgery
DX: S62.321D Displaced fracture of shaft of second metacarpal bone, left hand, subsequent encounter for fracture with routine healing (principal)
CPT/HCPCS: 73130

== ENCOUNTER 2024-05-20 11:21 | Outpatient (OUT) | payer OTHER, SELFPAY ==
--- NOTE | 2024-05-20 | XR_ITS ---
The [address] [address] Patient Name: CHYNA NUR MRN: [id number] date: 1955 Sex: F Assigned Patient Location: Current Patient Location: Accession/Order Number: [id number] Exam Date: 05/20/2024 11:22 Report Date: 05/22/2024 05:59 At the request of: RO WOOD Procedure: XR hand LT min 3V PROCEDURE: XR hand LT min 3V HISTORY: LEFT HAND PAIN COMPARISON: XR hand left 05/06/2024 FINDINGS: BONES:Prior fractures involving base of the second and third metacarpals with prior pinning and increasing callus formation along the margins. SOFT TISSUES:No visible soft tissue swelling. EFFUSION:None visible. OTHER: Negative. XR/XR hand LT min 3V IMPRESSION: 1. Stable alignment and pinning of the second and third metacarpals with ongoing bone healing. Electronically authenticated by: RO ASHRAF Date: 05/22/2024 05:59
--- OUTSIDE RECORDS SUMMARY | 2024-05-20 11:25 | XMS_ITS | CCD ---
Author Organization [facility] Care Team Providers Care Slot Floorperson Name Role Phone DODIE, DR PATRICIA Carlson Admitting Unavailable PERLA, DR PATRICIA Carlson Attending Unavailable PERLA, DR PATRICIA Carlson Primary Care Unavailable CUMMINGS, DR LISBETH Parrish Consulting Unavailable PERLA, DR PATRICIA Carlson Consulting Unavailable Perla, Patricia Sahu Niya, DRILLER MACHINE Tiffany L Admitting Unavailable Niya, DRILLER MACHINE Tiffany L Attending Unavailable Niya, DRILLER MACHINE Tiffany L Attending Unavailable Niya, DRILLER MACHINE Tiffany L Attending Unavailable Niya, DRILLER MACHINE Tiffany L Attending Unavailable Niya, DRILLER MACHINE Tiffany L Attending Unavailable Niya, DRILLER MACHINE Tiffany L Attending Unavailable Niya, DRILLER MACHINE Tiffany L Admitting Unavailable Niya, DRILLER MACHINE Tiffany L Attending Unavailable Niya, DRILLER MACHINE Tiffany L Attending Unavailable Allergies Allergy Classification Reported Allergen(s) Allergy Type Date of Onset Reaction(s) Facility (1 source) Sulfonamides (Antibiotic) Drug allergy (disorder) 02-01-20 21 [facility] Repository (6 sources) Clarithromycin Drug Allergy 12-04-19 24 Unknown, Unknown Reaction [facility] (18 sources) Nitrofurantoin Drug Allergy 12-04-19 24 Unknown, Unknown Reaction [facility] (17 sources) Sulfacetamide / Sulfur Drug Allergy Unknown [employer] Other (17 sources) Substance with sulfonamide structure and antibacterial mechanism of action (substance) Drug allergy Unknown [employer] Other (14 sources) Sulfamethoxazole / Trimethoprim Drug Allergy 04-08-20 13 Unknown [employer] Other (2 sources) Allergies Reconciled Propensity to adverse reactions Unknown [employer] Other (14 sources) Biaxin *MACROLIDES* Propensity to adverse reactions 08-16-19 17 Unknown [employer] Other (2 sources) patient allergy list reviewed by nurse or physicia Propensity to adverse reactions 11-30-19 Comment:Done [employer] Other (1 source) Sulfacetamide Drug Allergy 12-04-19 24 Unknown Reaction [facility] (1 source) Sulfamethoxazole Drug Allergy 12-04-19 24 Unknown Reaction [facility] (1 source) Sulfonamides (Antibiotic) Allergy to substance 12-04-19 Unknown Reaction [facility] (1 source) Sulfur Drug Allergy 12-04-19 24 Unknown Reaction [facility] (1 source) Trimethoprim Drug Allergy 12-04-19 24 Unknown Reaction [facility] (1 source) Sulfonamides (Antibiotic); Translations: [sulfa drugs] Propensity to adverse reactions (disorder) [facility] Repository Medications Current Medications Medication Drug [...] DAY NEEDED for 30 days November, Active [id number] 200 actuat albuterol 0.09 mg/actuat metered dose [...] Soc ial Workeron 04-16-2024 Interdisciplinary Note - Housekeeper Head Interdisciplinary Note - Housekeeper Head Consult for positive depression screen received. SW [...] concerns arise. SW will remain available. Normal [facility] .Interpretation:on HCV Ab IA Ql Comment Invalid Interpretation Code [facility] Comment on above: Result Comment: Not infected with HCV unless early or acute infection is suspected (which may be delayed in an immunocompromised individual), or other evidence exists to indicate HCV infection. Performed at: [employer] [address] [id number] PhD Delmi No Performed By: #### 2 [id number] #### [facility] [address] [place] [address] HCV Antibody RFX to [facility] [place] 04-13-2024 HCV IgG IA Ql Non-Reactive Invalid Interpretation Code Non Reactive [facility] Comment on above: Result Comment: Perf ormed at: [employer] [address] [id number] PhD Delmi No Performed By: #### 2 [id number] #### [facility] [address] [place] [address] CMPon 04-11-2024 Albumin [Mass/Vol] 3.9 g/dL Normal 3.3-5.0 [facility] Comment on above: Performed By: #### 2 [id number] #### [facility] [address] [place] [address] Albumin/Globulin (S) [Mass conc ratio] 1.4 Normal 1.1-2.2 [facility] Comment on above: Performed By: #### 2 [id number] #### [facility] [address] [place] [address] ALP [Catalytic activity/Vol] 111 Int._Unit/L High 21-98 [facility] Comment on above: Performed By: #### 2 [id number] #### [facility] [address] [place] [address] ALT No additional P-5'-P [Catalytic activity/Vol] 21 Int._Unit/L Normal 6-46 [facility] Comment on above: Performed By: #### 2 [id number] #### [facility] [address] [place] [address] Anion gap [Moles/Vol] 10 mmol/L Normal 6-16 [facility] Comment on above: Performed By: #### 2 [id number] #### [facility] [address] [place] [address] AST [Catalytic activity/Vol] 20 Int._Unit/L Normal 5-43 [facility] Comment on above: Performed By: #### 2 [id number] #### [facility] [address] [place] [address] Bilirubin [Mass/Vol] 0.3 mg/dL Normal 0.0-1.1 [facility] Comment on above: Performed By: #### 2 [id number] #### [facility] [address] [place] [address] Calcium [Mass/Vol] 9.2 mg/dL Normal 8.9-11.1 [facility] Comment on above: Performed By: #### 2 [id number] #### [facility] [address] [place] [address] Chloride [Moles/Vol] 106 mmol/L Normal 101-111 [facility] Comment on above: Performed By: #### 2 [id number] #### [facility] [address] [place] [address] CO2 [Moles/Vol] 27 mmol/L Normal 21-31 [facility] Comment on above: Performed By: #### 2 [id number] #### [facility] [address] [place] [address] Creatinine [Mass/Vol] 0.7 mg/dL Normal 0.5-1.3 [facility] Comment on above: Performed By: #### 2 [id number] #### [facility] [address] [place] [address] Globulin (S) [Mass/Vol] 2.7 g/dL Normal 1.4-4.0 [facility] Comment on above: Performed By: #### 2 [id number] #### [facility] [address] [place] [address] Glucose [Mass/Vol] 89 mg/dL Normal 55-199 [facility] Comment on above: Performed By: #### 2 [id number] #### [facility] [address] [place] [address] Potassium [Moles/Vol] 4.1 mmol/L Normal 3.5-5.3 [facility] Comment on above: Performed By: #### 2 [id number] #### [facility] [address] [place] [address] Protein [Mass/Vol] 6.6 g/dL Normal 6.0-7.8 [facility] Comment on above: Performed By: #### 2 [id number] #### [facility] [address] [place] [address] Sodium [Moles/Vol] 139 mmol/L Normal 135-145 [facility] Comment on above: Performed By: #### 2 [id number] #### [facility] [address] [place] [address] Urea nitrogen [Mass/Vol] 23 mg/dL High 5-21 [facility] Comment on above: Performed By: #### 2 [id number] #### [facility] [address] [place] [address] Urea nitrogen/Creatinine [Mass ratio] 33 No Units High 10-20 [facility] Comment on above: Performed By: #### 2 [id number] #### [facility] [address] [place] [address] Lipid Panelon 04-11-2024 Cholesterol [Mass/Vol] 221 mg/dL High 120-200 [facility] Comment on above: Performed By: #### 2 [id number] #### [facility] [address] [place] [address] Cholesterol in HDL [Mass/Vol] 48 mg/dL Invalid Interpretation Code [facility] Comment on above: Result Comment: '>= 60 LOW RISK' '<= 40 HIGH RISK' Performed By: #### 2 [id number] #### [facility] [address] [place] [address] Cholesterol in LDL [Mass/Vol] 164 mg/dL High <=129 [facility] Comment on above: Performed By: #### 2 [id number] #### [facility] [address] [place] [address] Cholesterol in VLDL [Mass/Vol] 35 mg/dL Normal 7-40 [facility] Comment on above: Performed By: #### 2 [id number] #### [facility] [address] [place] [address] Triglyceride [Mass/Vol] 177 mg/dL High <=149 [facility] Comment on above: Performed By: #### 2 [id number] #### [facility] [address] [place] [address] eGFRon 04-11-2024 eGFR 94 mL/min/1.73 m2 Normal >=59 [facility] Comment on above: Order Comment: Order added by Discern Expert. Performed By: #### 1 [id number] #### [facility] [address] [place] [address] Ambulatory Visit Summaryon 0 04-09-2024 Ambulatory Visit [...] Appointments 2023 8:20 AM EDT With: Where: [place] [id number]- Monday 8:20 AM EST With: Tiffany Zuñiga Where: [place] [id number]- 2024 11:00 AM EDT With: Where: [address] [address]- You Need to Complete the [...] caused by (more content not included)... Normal [facility] Ambulatory Visit Summary Ambulatory Visit Summary [...] Appointments 2023 8:20 AM EDT With: Where: [address] [address]- Monday 8:20 AM EST With: Tiffany Zuñiga Where: [address] [address]- 2024 11:00 AM EDT With: Where: [address] [address]- You Need to Complete the [...] for choosing us for your care. Normal [facility] Family Medicine Office/Clini c Noteon 04-09-2024 [...] of clutter to prevent tripping and/or falling. [place] Advance Directives reviewed. Documents provided to patient [...] pain as a 8 out of 10, [place] and diclofenac prescribed. Reviewed all outside providers [...] as needed. (more content not included)... Normal [facility] Comment on above: Result Comment: Elec [...] inactivated - Not Given Patient Refuses Normal [facility] Comment on above: Result Comment: Elec tronically Signed By: Tiffany Zuñiga\.br\Date and Time Signed: 04/09/24 09:33 EDT Medication Consenton 024 Medication Consent [id number] [facility] Ambulatory Visit Summaryon 0 01-09-2024 Ambulatory [...] 8:00 AM EDT With: Where: [facility] [place] Normal [address] [place] [address]- \.br\ Medications\.b r\ What How Much When Instructions\. br\ Changed benazepril-hyd rochlorothiazi de (benazepril-hy drochlorothiaz martin 20 mg-25 mg oral tablet) 1 Tablets By Mouth Every day TAKE 1 TABLET BY MOUTH EVERY DAY Pickup at [facility]/pharmacy #[id number]\.br\ Changed paroxetine (paroxetine 40 mg Tab) 1 Tablets By Mouth Every day TAKE 1 TABLET BY MOUTH EVERY DAY Pickup at [facility]/pharmacy #[id number]\.br\ Unchanged acetaminophen- hydrocodone (acetaminophen -hydrocodone 325 [...] DAYS *DNF * \.br\ Pharmacy Information\.b r\ [facility]/pharmacy #[id number]: [address], [place] [id number] [phone]\.br\ Allergies\.br\ sulfa drugs (Tongue swelling)\.br\ Problems\.br\ Ongoing [...] for choosing us for your care.\.br\ \.br\ [facility] Auth for Release of Medical Recordson 01-09-2024 Auth for Release of Medical Records [id number]. [id number] Normal [facility] Family Medicine Office/Clini c Noteon 01-09-2024 Family Medicine Office/Clinic Note HPI Staff Niya is a 68 year old female presenting to establish care Establish Care: History: Any previous diagnosis: Anxiety , HTN, Chronic leg pain History of seeing any specialist: When was your last doctors visit: Last provider: Dr Perla Any recent labs: had some at [facility] unsure what was drawn BEKAH: 8 Health Maintenance UTD: Colonoscopy: 20 years ago normal Mammogram: Fall 2022 normal [facility] Pelvic/Pap: nothing since hysterectomy 27 years [...] today. she had labs done recently at [facility] will obtain those for her chart. [...] dismissed her. pt had gone to a constitution party and took lyrica and didn't realize [...] TAKE 1 TABLET BY MOUTH EVERY DAY, [facility]/pharmacy #[id number], 163.5, cm, 01/09/24 13:01:00 EDT, Height/Length Dosing, 94.7, kg, 01/09/24 13:01:00 EDT, Weight Dosing paroxetine, 40 mg = 1 tab(s), Oral, Daily, TAKE 1 TABLET BY MOUTH EVERY DAY, # 90 tab(s), Refills(s) 3, Pharmacy: [facility]/pharmacy #[id number], 163.5, cm, 01/09/24 13:01:00 EDT, Height/Length [...] No. Household tobacco concerns: No., 01/09/[address] [facility] Comment on above: Result Comment: Elec [...] by: LISBETH ZHANG Date: 2022-05-05 19:08 Normal [facility] Vital Signs Date Time Vital Sign Value Performing Clinician Facility 12-04-2023 10:06-0400 Body height 170.18 cm [facility] 12-04-2023 10:06-0400 Body mass index (BMI) [Ratio] 33 kg/m2 [facility] 12-04-2023 10:06-0400 Body weight 95.76 kg [facility] 12-04-2023 10:06-0400 Diastolic blood pressure 67 mm[Hg] [facility] 12-04-2023 10:06-0400 Heart rate 99 /min [facility] 12-04-2023 10:06-0400 Systolic blood pressure 102 mm[Hg] [facility] 09-29-2023 10:10-0500 Body height 170.18 cm [facility] 09-29-2023 10:10-0500 Body mass index (BMI) [Ratio] 33.4 kg/m2 [facility] 09-29-2023 10:10-0500 Body weight 96.72 kg [facility] 09-29-2023 10:10-0500 Diastolic blood pressure 69 mm[Hg] [facility] 03-01-2024 10:10-0500 Heart rate 94 /min [facility] 09-29-2023 10:10-0500 Systolic blood pressure 108 mm[Hg] [facility] 06-27-2023 10:00-0500 Body height 170.18 cm Patricia Perla Other [employer] Other 06-27-2023 10:00-0500 Body mass index (BMI) [Ratio] 32.42 kg/m2 Patricia Perla Other [employer] Other 06-27-2023 10:00-0500 Body weight 93.9 kg Patricia Perla Other [employer] Other 06-27-2023 10:00-0500 Diastolic blood pressure 73 mm[Hg] Patricia Perla Other [employer] Other 06-27-2023 10:00-0500 Systolic blood pressure 120 mm[Hg] Patricia Perla Other [employer] Other 03-27-2023 10:00-0400 Body height 170.18 cm Patricia Perla Other [employer] Other 03-27-2023 10:00-0400 Body mass index (BMI) [Ratio] 33.67 kg/m2 Patricia Perla Other [employer] Other 03-27-2023 10:00-0400 Body weight 97.52 kg Patricia Perla Other [employer] Other 03-27-2023 10:00-0400 Diastolic blood pressure 67 mm[Hg] Patricia Perla Other [employer] Other 03-27-2023 10:00-0400 Systolic blood pressure 98 mm[Hg] Patricia Perla Other [employer] Other 12-28-2022 10:30-0400 Body height 170.18 cm Patricia Perla Other [employer] Other 12-28-2022 10:30-0400 Body mass index (BMI) [Ratio] 33.51 kg/m2 Patricia Perla Other [employer] Other 12-28-2022 10:30-0400 Body weight 97.07 kg Patricia Perla Other [employer] Other 12-28-2022 10:30-0400 Diastolic blood pressure 74 mm[Hg] Patricia Perla Other [employer] Other 12-28-2022 10:30-0400 Systolic blood pressure 115 mm[Hg] Patricia Perla Other [employer] Other Encounters Encounter Date Encounter Type Care Provider Facility Start: 04-10-2025 ambulatory DRILLER MACHINE Tiffany L Niya Facil ity: [facility] [place] Start: 07-09-2024 ambulatory DRILLER MACHINE Tiffany L Niya Facil ity: [facility] [place] Start: 04-11-2024 End: 04-11-2024 ambulatory DRILLER MACHINE Tiffany L Niya [facility] Start: 04-09-2024 End: 04-09-2024 ambulatory DRILLER MACHINE Tiffany L Niya Facility: [facility] Start: 01-09-2024 End: 01-09-2024 ambulatory DRILLER MACHINE Tiffany L Niya Facility: [facility] Start: 01-08-2024 ambulatory DRILLER MACHINE Tiffany Niya Facilit y: [facility] [place] Start: 12-04-2023 End: 12-04-2023 ambulatory [facility] Work Phone: Start: 12-04-2023 End: 12-04-2023 Patient encounter procedure [facility] Work Phone: Start: 09-29-2023 End: 09-29-2023 Patient encounter procedure [facility] Work Phone: Start: 09-18-2023 Non-patient / Non-visit [facility] Work Phone: Start: 09-06-2023 End: 09-06-2023 ambulatory Patricia Perla Other [employer] Other Start: 09-06-2023 Telephone encounter Patricia Dodie [facility] Start: 08-10-2023 End: 08-10-2023 ambulatory Patricia Dodie Other [employer] Other Start: 08-10-2023 Telephone encounter Patricia Dodie [facility] Start: 07-12-2023 End: 07-12-2023 ambulatory Patricia Dodie Other [employer] Other Start: 07-12-2023 Telephone encounter Patricia Perla [facility] Start: 07-03-2023 End: 07-03-2023 ambulatory Patricia Dodie Other [employer] Other Start: 07-03-2023 Telephone encounter Patricia Perla [facility] Start: 06-29-2023 End: 06-29-2023 ambulatory Patricia Dodie Other [employer] Other Start: 06-29-2023 Telephone encounter Patricia Perla [facility] Start: 06-28-2023 End: 06-28-2023 ambulatory Patricia Perla Other [employer] Other Start: 06-28-2023 Telephone encounter Patricia Perla [facility] Start: 06-27-2023 End: 06-27-2023 ambulatory Patricia Perla Other [employer] Other Start: 06-27-2023 Office outpatient vi sit 25 minutes Patricia Dodie [facility] Start: 06-15-2023 End: 06-15-2023 ambulatory Patricia Dodie Other [employer] Other Start: 06-15-2023 Telephone encounter Patricia Perla [facility] Start: 05-04-2023 (Televisit) Televisit Patricia Perla [facility] Start: 05-04-2023 End: 05-04-2023 ambulatory Patricia Dodie Other [employer] Other Start: 05-04-2023 Telephone encounter Patricia Perla [facility] Start: 04-19-2023 End: 04-19-2023 ambulatory Patricia Dodie Other [employer] Other Start: 04-19-2023 Telephone encounter Patricia Perla [facility] Start: 03-27-2023 End: 03-27-2023 ambulatory Patricia Dodie Other [employer] Other Start: 03-27-2023 Office outpatient vi sit 15 minutes Patricia Dodie [facility] Start: 03-21-2023 End: 03-21-2023 ambulatory Patricia Dodie Other [employer] Other Start: 03-21-2023 Telephone encounter Patricia Perla [facility] Start: 02-21-2023 End: 02-21-2023 ambulatory Patricia Dodie Other [employer] Other Start: 02-21-2023 Telephone encounter Patricia Perla [facility] Start: 01-26-2023 End: 01-26-2023 ambulatory Patricia Dodie Other [employer] Other Start: 01-26-2023 Telephone encounter Patricia Perla [facility] Start: 01-19-2023 End: 01-19-2023 ambulatory Patricia Dodie Other [employer] Other Start: 01-19-2023 Telephone encounter Patricia Perla [facility] Start: 12-28-2022 End: 12-28-2022 ambulatory Patricia Perla Other [employer] Other Start: 12-28-2022 Office outpatient vi sit 25 minutes Patriciamary anne Perla [facility] Start: 05-05-2022 Adult health examination Patricia Dodei Other [employer] Other Start: 05-05-2022 Problem, abnormal examination Patricia Dodie Other [employer] Other Start: 05-05-2022 End: 05-06-[address] PATRICIA PERLA Facility: Procedures Date Procedure Procedure Detail Performing Clinician Start: 05-29-2018 Screening for malign ant neoplasm of colon Patricia Perla Other Start: 08-16-2016 Screening mammography M evie Dodie Other Screening for malign ant neoplasm of breast Patricia Perla Other Payers Date Payer Category Payer Unknown [id number] 1958 Unknown [id number] 1955 Unknown [id number] 2.16.84 [id number] 1955 Unknown [id number] 2.16.8 [id number] 1955 Unknown [id number] 2.16.8 [id number] 1956 Unknown [id number] 2.16.8 [id number] 1956 Unknown [id number] 2.16.8 [id number] 1956 Unknown [id number] 2.16.8 [id number] 1956 Unknown [id number] 2.16.8 [id number] 1956 Unknown [id number] 2.16.8 [id number] Unknown MMO [id number] Unknown [place] BC/BS [id number] Social History Date Type Detail Facility Unknown if ever smoked [employer] Other Sex Assigned At Sex Assigned At Bir th [employer] Other Start: 09-18-2023 Tobacco smoking status NHIS Smoker (finding) [facility] Start: 1955 Sex Assigned At Female F [facility] Clinical Notes 12-28-2022 to 04-11-2024 Note [...] vaccine, inactivated - Not Given Patient Refuses [facility] 04-09-2024 Note Patient Education Cardiovascular Hypertension, [...] wine (148 mL), (more content not included)... 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) Jul, Generalized anxiety disorder (ICD-10 - F41.1) [employer] Other 12-13-2023 Evaluation note* Encounter Date Diagnosis Assessment Notes Treatment Notes Treatment Clinical Notes Jun, Traumatic arthropathy, 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 ER if symptoms worsen. 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 [employer] Other Evaluation noteNo [employer] Other Evaluation note* Diagnosis Onset Date Resolution Status Anxiety acute Sinusitis, acute maxillary a cute Traumatic arthropathy, right ankle and foot acute Anxiety acute Sinusitis, acute maxillary a cute Traumatic arthropathy, right ankle and foot acute [facility] Work Phone: History general Narrative - Reported* Type Description Date Medical History Anxiety Medical History Benign essential HTN Medical History Seasonal allergies Surgical History right leg surgery Surgical History C section x5 Surgical History hysterectomy Surgical History exploratory surgery Hospitalization History stomach issue [facility] elicit Other History [facility] Summary Purpose Family History No Family [...] DATE CREATED AUTHOR AUTHOR'S ORGANIZ ATION 04/14/2024 [facility] DATE CREATED AUTHOR AUTHOR'S ORGANIZ ATION 04/15/2024 [facility] DATE CREATED AUTHOR AUTHOR'S ORGANIZ ATION 04/18/2024 [facility] DATE CREATED AUTHOR AUTHOR'S ORGANIZ ATION 04/22/2024 [facility] REASON FOR VISIT (unrecogniz ed section [...] BE BASED ON THE PRIMARY CLINICAL RECORDS. [facility] [employer] [facility] provides no warranty or guarantee of the accuracy or completeness of information in this document.
== END 2024-05-20 11:22 | disposition home or self-care (01) ==
LOC: EC 11:22
PROVIDERS: PCP Nurse Practitioner; Visit Provider Orthopaedic Surgery
DX: S62.321D Displaced fracture of shaft of second metacarpal bone, left hand, subsequent encounter for fracture with routine healing (principal)
CPT/HCPCS: 73130

== ENCOUNTER 2024-06-17 09:46 | Outpatient (OUT) | payer OTHER, SELFPAY ==
--- NOTE | 2024-06-17 | XR_ITS ---
The [address] [address] Patient Name: CHYNA NUR MRN: [id number] date: 1955 Sex: F Assigned Patient Location: Current Patient Location: Accession/Order Number: [id number] Exam Date: 06/17/2024 09:47 Report Date: 06/19/2024 06:49 At the request of: RO WOOD Procedure: XR hand LT min 3V PROCEDURE: XR hand LT min 3V HISTORY: LEFT HAND PAIN ; follow-up second metacarpal fracture. COMPARISON: XR hand left 05/20/2024 FINDINGS: BONES:Prior fracture with stable alignment and increasing density and callus formation involving base of second metacarpal. Interval removal of pins fixing the second metacarpal to the third metacarpal. Generalized osteopenia of the bones of the hands, likely from disuse. SOFT TISSUES:No visible soft tissue swelling. EFFUSION:None visible. OTHER: Negative. XR/XR hand LT min 3V IMPRESSION: 1. Stable normal alignment and ongoing bone healing of second metacarpal fracture. Electronically authenticated by: RO ASHRAF Date: 06/19/2024 06:49
--- OUTSIDE RECORDS SUMMARY | 2024-06-17 09:56 | XMS_ITS | CCD ---
Author Organization [facility] Care Team Providers Care Consumer Education Specialist Name Role Phone DODIE, DR PATRICIA Carlson Admitting Unavailable PERLA, DR PATRICIA Carlson Attending Unavailable PELRA, DR PATRICIA Carlson Primary Care Unavailable SHELBYVILLE, DR LISBETH Parrish Consulting Unavailable PERLA, DR PATRICIA Carlson Consulting Unavailable Perla, Patricia Sahu Niya, CROWNING INSPECTOR Tiffany L Admitting Unavailable Niya, CROWNING INSPECTOR Tiffany L Attending Unavailable Niya, CROWNING INSPECTOR Tiffany L Attending Unavailable Niya, CROWNING INSPECTOR Tiffany L Attending Unavailable Niya, CROWNING INSPECTOR Tiffany L Attending Unavailable Niya, CROWNING INSPECTOR Tiffany L Attending Unavailable Niya, CROWNING INSPECTOR Tiffany L Attending Unavailable Niya, CROWNING INSPECTOR Tiffany L Admitting Unavailable Niya, CROWNING INSPECTOR Tiffany L Attending Unavailable Niya, CROWNING INSPECTOR Tiffany L Attending Unavailable Allergies Allergy Classification Reported Allergen(s) Allergy Type Date of Onset Reaction(s) Facility (1 source) Sulfonamides (Antibiotic) Drug allergy (disorder) 02-01-20 21 [facility] Repository (6 sources) Clarithromycin Drug Allergy 12-04-19 24 Unknown, Unknown Reaction [facility] (18 sources) Nitrofurantoin Drug Allergy 12-04-19 24 Unknown, Unknown Reaction [facility] (17 sources) Sulfacetamide / Sulfur Drug Allergy Unknown meets Other (17 sources) Substance with sulfonamide structure and antibacterial mechanism of action (substance) Drug allergy Unknown meets Other (14 sources) Sulfamethoxazole / Trimethoprim Drug Allergy 04-08-20 13 Unknown meets Other (2 sources) Allergies Reconciled Propensity to adverse reactions Unknown meets Other (14 sources) Biaxin *MACROLIDES* Propensity to adverse reactions 08-16-19 17 Unknown meets Other (2 sources) patient allergy list reviewed by nurse or physicia Propensity to adverse reactions 11-30-19 Comment:Done meets Other (1 source) Sulfacetamide Drug Allergy 12-04-[address] [facility] (1 source) Sulfamethoxazole Drug Allergy 12-04-[address] [facility] (1 source) Sulfonamides (Antibiotic) Allergy to substance 12-04-[address] [facility] (1 source) Sulfur Drug Allergy 12-04-[address] [facility] (1 source) Trimethoprim Drug Allergy 12-04-[address] [facility] (1 source) Sulfonamides (Antibiotic); Translations: [sulfa drugs] Propensity to adverse reactions (disorder) [facility] Repository Medications Current Medications Medication Drug Class(es) [...] DAY NEEDED for 30 days November, Active [id number] 200 actuat albuterol 0.09 mg/actuat metered dose [...] Soc ial Workeron 04-16-2024 Interdisciplinary Note - Director Of Construction Interdisciplinary Note - Director Of Construction Consult for positive depression screen received. SW [...] concerns arise. SW will remain available. Normal [facility] .Interpretation:on HCV Ab IA Ql Comment Invalid Interpretation Code [facility] Comment on above: Result Comment: Not infected with HCV unless early or acute infection is suspected (which may be delayed in an immunocompromised individual), or other evidence exists to indicate HCV infection. Performed at: [facility] [address] [id number] PhD Delmi No Performed By: #### 2 [id number] #### [facility] [address] [place] [address] HCV Antibody RFX to [facility] [place] 04-13-2024 HCV IgG IA Ql Non-Reactive Invalid Interpretation Code Non Reactive [facility] Comment on above: Result Comment: Perf ormed at: [facility] [address] [id number] PhD Delmi No Performed By: #### 2 [id number] #### [facility] [address] [place] [address] CMPon 04-11-2024 Albumin [Mass/Vol] 3.9 g/dL Normal 3.3-5.0 [facility] Comment on above: Performed By: #### 2 [id number] #### [facility] [address] [place] [address] Albumin/Globulin (S) [Mass conc ratio] 1.4 Normal 1.1-2.2 [facility] Comment on above: Performed By: #### 2 [id number] #### [facility] [address] [place] [address] ALP [Catalytic activity/Vol] 111 Int._Unit/L High 21-98 [facility] Comment on above: Performed By: #### 2 [id number] #### [facility] [address] [place] [address] ALT No additional P-5'-P [Catalytic activity/Vol] 21 Int._Unit/L Normal 6-46 [facility] Comment on above: Performed By: #### 2 [id number] #### [facility] [address] [place] [address] Anion gap [Moles/Vol] 10 mmol/L Normal 6-16 [facility] Comment on above: Performed By: #### 2 [id number] #### [facility] [address] [place] [address] AST [Catalytic activity/Vol] 20 Int._Unit/L Normal 5-43 [facility] Comment on above: Performed By: #### 2 [id number] #### [facility] [address] [place] [address] Bilirubin [Mass/Vol] 0.3 mg/dL Normal 0.0-1.1 [facility] Comment on above: Performed By: #### 2 [id number] #### [facility] [address] [place] [address] Calcium [Mass/Vol] 9.2 mg/dL Normal 8.9-11.1 [facility] Comment on above: Performed By: #### 2 [id number] #### [facility] [address] [place] [address] Chloride [Moles/Vol] 106 mmol/L Normal 101-111 [facility] Comment on above: Performed By: #### 2 [id number] #### [facility] [address] [place] [address] CO2 [Moles/Vol] 27 mmol/L Normal 21-31 [facility] Comment on above: Performed By: #### 2 [id number] #### [facility] [address] [place] [address] Creatinine [Mass/Vol] 0.7 mg/dL Normal 0.5-1.3 [facility] Comment on above: Performed By: #### 2 [id number] #### [facility] [address] [place] [address] Globulin (S) [Mass/Vol] 2.7 g/dL Normal 1.4-4.0 [facility] Comment on above: Performed By: #### 2 [id number] #### [facility] [address] [place] [address] Glucose [Mass/Vol] 89 mg/dL Normal 55-199 [facility] Comment on above: Performed By: #### 2 [id number] #### [facility] [address] [place] [address] Potassium [Moles/Vol] 4.1 mmol/L Normal 3.5-5.3 [facility] Comment on above: Performed By: #### 2 [id number] #### [facility] [address] [place] [address] Protein [Mass/Vol] 6.6 g/dL Normal 6.0-7.8 [facility] Comment on above: Performed By: #### 2 [id number] #### [facility] [address] [place] [address] Sodium [Moles/Vol] 139 mmol/L Normal 135-145 [facility] Comment on above: Performed By: #### 2 [id number] #### [facility] [address] [place] [address] Urea nitrogen [Mass/Vol] 23 mg/dL High 5-21 [facility] Comment on above: Performed By: #### 2 [id number] #### [facility] [address] [place] [address] Urea nitrogen/Creatinine [Mass ratio] 33 No Units High 10-20 [facility] Comment on above: Performed By: #### 2 [id number] #### [facility] [address] [place] [address] Lipid Panelon 04-11-2024 Cholesterol [Mass/Vol] 221 mg/dL High 120-200 [facility] Comment on above: Performed By: #### 2 [id number] #### [facility] [address] [place] [address] Cholesterol in HDL [Mass/Vol] 48 mg/dL Invalid Interpretation Code [facility] Comment on above: Result Comment: '>= 60 LOW RISK' '<= 40 HIGH RISK' Performed By: #### 2 [id number] #### [facility] [address] [place] [address] Cholesterol in LDL [Mass/Vol] 164 mg/dL High <=129 [facility] Comment on above: Performed By: #### 2 [id number] #### [facility] [address] [place] [address] Cholesterol in VLDL [Mass/Vol] 35 mg/dL Normal 7-40 [facility] Comment on above: Performed By: #### 2 [id number] #### [facility] [address] [place] [address] Triglyceride [Mass/Vol] 177 mg/dL High <=149 [facility] Comment on above: Performed By: #### 2 [id number] #### [facility] [address] [place] [address] eGFRon 04-11-2024 eGFR 94 mL/min/1.73 m2 Normal >=59 [facility] Comment on above: Order Comment: Order added by Discern Expert. Performed By: #### 1 [id number] #### [facility] [address] [place] [address] Ambulatory Visit Summaryon 0 04-09-2024 Ambulatory Visit [...] Appointments 2023 8:20 AM EDT With: Where: [place] [id number]- Monday 8:20 AM EST With: Tiffany Zuñiga Where: [place] [id number]- 2024 11:00 AM EDT With: Where: [address] [address]- You Need to Complete the [...] caused by (more content not included)... Normal [facility] Ambulatory Visit Summary Ambulatory Visit Summary NIYA [...] Appointments 2023 8:20 AM EDT With: Where: [address] [address]- Monday 8:20 AM EST With: Tiffany Zuñiga Where: [address] [address]- 2024 11:00 AM EDT With: Where: [address] [address]- You Need to Complete the [...] for choosing us for your care. Normal [facility] Family Medicine Office/Clini c Noteon 04-09-2024 [...] of clutter to prevent tripping and/or falling. [place] Advance Directives reviewed. Documents provided to patient [...] pain as a 8 out of 10, Pace and diclofenac prescribed. Reviewed all outside providers [...] as needed. (more content not included)... Normal [facility] Comment on above: Result Comment: Elec tronically [...] inactivated - Not Given Patient Refuses Normal [facility] Comment on above: Result Comment: Elec tronically Signed By: Tiffany Zuñiga\.br\Date and Time Signed: 04/09/24 09:33 EDT Medication Consenton 024 Medication Consent [id number] .[id number] Normal [facility] Ambulatory Visit Summaryon 0 01-09-2024 Ambulatory Visit [...] Appointments Monday 8:00 AM EDT With: Where: [facility] [address] [place] [address]- \.br\ Medications\.b r\ What How Much When Instructions\. br\ Changed benazepril-hyd rochlorothiazi de (benazepril-hy drochlorothiaz martin 20 mg-25 mg oral tablet) 1 Tablets By Mouth Every day TAKE 1 TABLET BY MOUTH EVERY DAY Pickup at [facility]/pharmacy #[id number]\.br\ Changed paroxetine (paroxetine 40 mg Tab) 1 Tablets By Mouth Every day TAKE 1 TABLET BY MOUTH EVERY DAY Pickup at [facility]/pharmacy #[id number]\.br\ Unchanged acetaminophen- hydrocodone (acetaminophen -hydrocodone [...] DAYS *DNF * \.br\ Pharmacy Information\.b r\ [facility]/pharmacy #[id number]: [address], [place] [id number] [phone]\.br\ Allergies\.br\ sulfa drugs (Tongue swelling)\.br\ Problems\.br\ Ongoing [...] for choosing us for your care.\.br\ \.br\ [facility] Auth for Release of Medical Recordson 01-09-2024 Auth for Release of Medical Records [id number]. 00TIFF Normal [facility] Family Medicine Office/Clini c Noteon 01-09-2024 Family Medicine Office/Clinic Note HPI Staff Niya is a 68 year old female presenting to establish care Establish Care: History: Any previous diagnosis: Anxiety , HTN, Chronic leg pain History of seeing any specialist: When was your last doctors visit: Last provider: Dr Perla Any recent labs: had some at [facility] unsure what was drawn BEKAH: 8 Health Maintenance UTD: Colonoscopy: 20 years ago normal Mammogram: Fall 2022 normal [facility] Pelvic/Pap: nothing since hysterectomy 27 years [...] today. she had labs done recently at [facility] will obtain those for her chart. [...] dismissed her. pt had gone to a republican and took lyrica and didn't realize it [...] TAKE 1 TABLET BY MOUTH EVERY DAY, [facility]/pharmacy #[id number], 163.5, cm, 01/09/24 13:01:00 EDT, Height/Length Dosing, 94.7, kg, 01/09/24 13:01:00 EDT, Weight Dosing paroxetine, 40 mg = 1 tab(s), Oral, Daily, TAKE 1 TABLET BY MOUTH EVERY DAY, # 90 tab(s), Refills(s) 3, Pharmacy: [facility]/pharmacy #[id number], 163.5, cm, 01/09/24 13:01:00 EDT, [...] No. Household tobacco concerns: No., 01/09/2024 Normal [facility] Comment on above: Result Comment: Elec tronically [...] by: LISBETH ZHANG Date: 2022-05-05 19:08 Normal [facility] Vital Signs Date Time Vital Sign Value Performing Clinician Facility 12-04-2023 10:06-0400 Body height 170.18 cm [facility] 12-04-2023 10:06-0400 Body mass index (BMI) [Ratio] 33 kg/m2 [facility] 12-04-2023 10:06-0400 Body weight 95.76 kg [facility] 12-04-2023 10:06-0400 Diastolic blood pressure 67 mm[Hg] [facility] 12-04-2023 10:06-0400 Heart rate 99 /min [facility] 12-04-2023 10:06-0400 Systolic blood pressure 102 mm[Hg] [facility] 09-29-2023 10:10-0500 Body height 170.18 cm [facility] 09-29-2023 10:10-0500 Body mass index (BMI) [Ratio] 33.4 kg/m2 [facility] 09-29-2023 10:10-0500 Body weight 96.72 kg [facility] 09-29-2023 10:10-0500 Diastolic blood pressure 69 mm[Hg] [facility] 03-01-2024 10:10-0500 Heart rate 94 /min [facility] 09-29-2023 10:10-0500 Systolic blood pressure 108 mm[Hg] [facility] 06-27-2023 10:00-0500 Body height 170.18 cm Patricia Perla Other meets Other 06-27-2023 10:00-0500 Body mass index (BMI) [Ratio] 32.42 kg/m2 Patricia Perla Other meets Other 06-27-2023 10:00-0500 Body weight 93.9 kg Patricia Perla Other meets Other 06-27-2023 10:00-0500 Diastolic blood pressure 73 mm[Hg] Patricia Perla Other meets Other 06-27-2023 10:00-0500 Systolic blood pressure 120 mm[Hg] Patricia Perla Other meets Other 03-27-2023 10:00-0400 Body height 170.18 cm Patricia Perla Other meets Other 03-27-2023 10:00-0400 Body mass index (BMI) [Ratio] 33.67 kg/m2 Patricia Perla Other meets Other 03-27-2023 10:00-0400 Body weight 97.52 kg Patricia Perla Other meets Other 03-27-2023 10:00-0400 Diastolic blood pressure 67 mm[Hg] Patricia Perla Other meets Other 03-27-2023 10:00-0400 Systolic blood pressure 98 mm[Hg] Patricia Perla Other meets Other 12-28-2022 10:30-0400 Body height 170.18 cm Patricia Perla Other meets Other 12-28-2022 10:30-0400 Body mass index (BMI) [Ratio] 33.51 kg/m2 Patricia Perla Other meets Other 12-28-2022 10:30-0400 Body weight 97.07 kg Patricia Perla Other meets Other 12-28-2022 10:30-0400 Diastolic blood pressure 74 mm[Hg] Patricia Perla Other meets Other 12-28-2022 10:30-0400 Systolic blood pressure 115 mm[Hg] Patricia Perla Other meets Other Encounters Encounter Date Encounter Type Care Provider Facility Start: 04-10-2025 ambulatory CROWNING INSPECTOR Tiffany L Niya [facility] Start: 07-09-2024 ambulatory CROWNING INSPECTOR Tiffany L Niya Facil ity: [facility] Start: 04-11-2024 End: 04-11-2024 ambulatory CROWNING INSPECTOR Tiffany L Niya Facility:[facility] Start: 04-09-2024 End: 04-09-2024 ambulatory CROWNING INSPECTOR Tiffany L Niya Facility: [facility] Start: 01-09-2024 End: 01-09-2024 ambulatory CROWNING INSPECTOR Tiffany L Niya Facility: [facility] Start: 01-08-2024 ambulatory CROWNING INSPECTOR Tiffany Niya Facilit y: [facility] Start: 12-04-2023 End: 12-04-2023 ambulatory [facility] Work Phone: Start: 12-04-2023 End: 12-04-2023 Patient encounter procedure [facility] Work Phone: Start: 09-29-2023 End: 09-29-2023 Patient encounter procedure [facility] Work Phone: Start: 09-18-2023 Non-patient / Non-visit [facility] Work Phone: Start: 09-06-2023 End: 09-06-2023 ambulatory Patricia Perla Other meets Other Start: 09-06-2023 Telephone encounter Patricia Dodie [facility] Start: 08-10-2023 End: 08-10-2023 ambulatory Patricia Dodie Other meets Other Start: 08-10-2023 Telephone encounter Patricia Dodie [facility] Start: 07-12-2023 End: 07-12-2023 ambulatory Patricia Dodie Other meets Other Start: 07-12-2023 Telephone encounter Patricia Perla [facility] Start: 07-03-2023 End: 07-03-2023 ambulatory Patricia Dodie Other meets Other Start: 07-03-2023 Telephone encounter Patricia Perla [facility] Start: 06-29-2023 End: 06-29-2023 ambulatory Patricia Dodie Other meets Other Start: 06-29-2023 Telephone encounter Patricia Perla [facility] Start: 06-28-2023 End: 06-28-2023 ambulatory Patricia Perla Other meets Other Start: 06-28-2023 Telephone encounter Patricia Perla [facility] Start: 06-27-2023 End: 06-27-2023 ambulatory Patricia Perla Other meets Other Start: 06-27-2023 Office outpatient vi sit 25 minutes Patricia Dodie [facility] Start: 06-15-2023 End: 06-15-2023 ambulatory Patricia Dodie Other meets Other Start: 06-15-2023 Telephone encounter Patricia Perla [facility] Start: 05-04-2023 (Televisit) Televisit Patricia Perla [facility] Start: 05-04-2023 End: 05-04-2023 ambulatory Patricia Dodie Other meets Other Start: 05-04-2023 Telephone encounter Patricia Perla [facility] Start: 04-19-2023 End: 04-19-2023 ambulatory Patricia Dodie Other meets Other Start: 04-19-2023 Telephone encounter Patricia Perla [facility] Start: 03-27-2023 End: 03-27-2023 ambulatory Patricia Dodie Other meets Other Start: 03-27-2023 Office outpatient vi sit 15 minutes Patricia Dodie [facility] Start: 03-21-2023 End: 03-21-2023 ambulatory Patricia Dodie Other meets Other Start: 03-21-2023 Telephone encounter Patricia Perla [facility] Start: 02-21-2023 End: 02-21-2023 ambulatory Patricia Dodie Other meets Other Start: 02-21-2023 Telephone encounter Patricia Perla [facility] Start: 01-26-2023 End: 01-26-2023 ambulatory Patricia Dodie Other meets Other Start: 01-26-2023 Telephone encounter Patricia Perla [facility] Start: 01-19-2023 End: 01-19-2023 ambulatory Patricia Dodie Other meets Other Start: 01-19-2023 Telephone encounter Patricia Perla [facility] Start: 12-28-2022 End: 12-28-2022 ambulatory Patricia Perla Other meets Other Start: 12-28-2022 Office outpatient vi sit 25 minutes Patriciamary anne Perla [facility] Start: 05-05-2022 Adult health examination Patricia Dodie Other meets Other Start: 05-05-2022 Problem, abnormal examination Patricia Dodie Other meets Other Start: 05-05-2022 End: 05-06-[address] PATRICIA PERLA Facility: Procedures Date Procedure Procedure Detail Performing Clinician Start: 05-29-2018 Screening for malign ant neoplasm of colon Patricia Perla Other Start: 08-16-2016 Screening mammography M evie Dodie Other Screening for malign ant neoplasm of breast Patricia Perla Other Payers Date Payer Category Payer Unknown [id number] 1958 Unknown [id number] 1955 Unknown [id number] 2.16.84 [id number] 1955 Unknown [id number] 2.16.8 [id number] 1955 Unknown [id number] 2.16.8 [id number] 1955 Unknown [id number] 2.16.8 [id number] 1955 Unknown [id number] 2.16.8 [id number] 1956 Unknown [id number] 2.16.8 [id number] 1955 Unknown [id number] 2.16.8 [id number] 1955 Unknown [id number] 2.16.8 [id number] Unknown MMO [id number] Unknown [place] [employer]/BS [id number] Social History Date Type Detail Facility Unknown if ever smoked meets Other Sex Assigned At Sex Assigned At Bir th meets Other Start: 09-18-2023 Tobacco smoking status NHIS Smoker (finding) [facility] Start: 1955 Sex Assigned At Female F [facility] Clinical Notes 12-28-2022 to 04-11-2024 Note Date [...] vaccine, inactivated - Not Given Patient Refuses [facility] 04-09-2024 Note Patient Education Cardiovascular Hypertension, Adult [...] wine (148 mL), (more content not included)... 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) Jul, Generalized anxiety disorder (ICD-10 - F41.1) meets Other 12-13-2023 Evaluation note* Encounter Date Diagnosis Assessment Notes Treatment Notes Treatment Clinical Notes Jun, Traumatic arthropathy, 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 ER if symptoms worsen. 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 Other Evaluation noteNo InformationNortKangaDo Other Evaluation note* Diagnosis Onset Date Resolution Status Anxiety acute Sinusitis, acute maxillary a cute Traumatic arthropathy, right ankle and foot acute Anxiety acute Sinusitis, acute maxillary a cute Traumatic arthropathy, right ankle and foot acute [facility] Work Phone: History general Narrative - Reported* Type Description Date Medical History Anxiety Medical History Benign essential HTN Medical History Seasonal allergies Surgical History right leg surgery Surgical History C section x5 Surgical History hysterectomy Surgical History exploratory surgery Hospitalization History stomach issue [facility] [employer] Other History general [facility] - [facility] [employer] Other Summary Purpose Family History No Family [...] DATE CREATED AUTHOR AUTHOR'S ORGANIZ ATION 04/14/2024 [facility] DATE CREATED AUTHOR AUTHOR'S ORGANIZ ATION 04/15/2024 [facility] DATE CREATED AUTHOR AUTHOR'S ORGANIZ ATION 04/18/2024 [facility] DATE CREATED AUTHOR AUTHOR'S ORGANIZ ATION 04/22/2024 [facility] REASON FOR VISIT (unrecogniz ed section [...] BE BASED ON THE PRIMARY CLINICAL RECORDS. [facility] [employer] [facility]. provides no warranty or guarantee of the accuracy or completeness of information in this document.
== END 2024-06-17 09:47 | disposition home or self-care (01) ==
LOC: EC 09:46
PROVIDERS: PCP Nurse Practitioner; Visit Provider Orthopaedic Surgery
DX: S62.321D Displaced fracture of shaft of second metacarpal bone, left hand, subsequent encounter for fracture with routine healing (principal)
CPT/HCPCS: 73130

== ENCOUNTER 2025-05-14 09:21 | Outpatient (OUT) | payer MEDICARE, SELFPAY ==
--- OUTSIDE RECORDS SUMMARY | 2024-07-15 05:50 | XMS_ITS ---
Author Organization [facility] Address [address] [place] [address] Care Team Providers Care Investment Banker Name Role Phone Eduardo Hickman Unavailable [phone] Results Component Value Reference Range Notes SCC- HAND 3 VIEW LEFT 19881 Reviewed date:08/06/2024 03:27:22 PM Interpretation: Performing Lab: Notes/Report: REASON FOR VISIT LEFT 2ND AND 3RD MC FX /P PERC PINNING Encounters Encounter Location Date Provider Diagnosis [facility] Office [address] [place] [address] [address] [place] [address] 07/15/2024 Eduardo Hickman Displaced fracture of shaft of second metacarpal bone, left hand, subsequent encounter for fracture with routine healing S62.321D Assessments Encounter Date Diagnosis (ICD Code) Assessment Notes Treatment Notes Treatment Clinical Notes Section Notes 07/15/2024 Displaced fracture of shaft of second metacarpal bone, left hand, subsequent encounter for fracture with routine healing (ICD-10 - S62.321D) Plan Of Treatment No Information Progress Notes * CHYNA NURDOB:[birth year] (69 yo F)Acc No.[id number]:07/15/2024 Progress Notes Patient: CHYNA SHANNON Provider: Yolanda Hickman MD :1955 A ge:68 Y S ex:Female Date:07/15/2024 Address:[address] [place], [place] [id number] Subjective: * Chief Complaints: * 1 . LEFT 2ND AND 3RD MC FX /P PERC PINNING. * Medical History: Objective: * Vitals: Assessment: * Assessment: 1. D isplaced fracture of shaft of second metacarpal bone, left hand, subsequent encounter for fracture with routine healing - S62.321D Plan: * Treatment: Forms: * Images: * Electronic signature of Zhao Hickman MD on 05/14/2025 at 09:22 AM EDT Sign off status: Pending * Provider: Yolanda Hickman MD Date: 1 09/15/2023 Generated for Loulou weller/Valentin/Kavon on: 1 09:22 AM EDT
--- NOTE | 2025-05-14 09:24 | MM_ITS ---
Patient Name: CHYNA NUR MR#: [id number] : 1955 Exam Date: 05/14/2025 Ordering Doctor: BETHANIE RAYMOND . RADIOLOGY REPORT PROCEDURE: MM TOMOSYNTHESIS SCREENING BI COMPARISON: MM TOMOSYNTHESIS SCREENING BI, 04/18/2024. MM TOMOSYNTHESIS SCREENING BI, 01/18/2023. INDICATIONS: Screening Calculator Name NCI Breast Cancer Risk Assessment Tool 5 Year Breast Cancer Risk 1.40% Lifetime Breast Cancer Risk 4.60% Personal Breast Cancer No Personal Ovarian Cancer No Treatments None Family Cancers Sister with bone cancer at age 42. LOCATION: [facility] BREAST COMPOSITION: There are scattered areas of fibroglandular density. FINDINGS: RIGHT BREAST: No significant suspicious finding. LEFT BREAST: No significant suspicious finding. DIAGNOSTIC CATEGORY 1--NEGATIVE. RECOMMENDATIONS: ROUTINE MAMMOGRAM AND CLINICAL EVALUATION IN 12 MONTHS. Dictated by: Ethan Mccall MD on 05/14/2025 at 14:57 Approved by: Ethan Mccall MD on 05/14/2025 at 14:58
--- NOTE | 2025-05-14 09:24 | CT_ITS ---
The [address] [address] Patient Name: CHYNA NUR MRN: [id number] date: 1955 Sex: F Assigned Patient Location: [facility] Current Patient Location: [facility] Accession/Order Number: [id number] Exam Date: 05/14/2025 09:40 Report Date: 05/14/2025 11:37 At the request of: BETHANIE RAYMOND Procedure: CT lung screening low-dose LOW-DOSE SCREENING CHEST CT WITHOUT CONTRAST CLINICAL DATA: Current smoker with 40 pack year history of tobacco use COMPARISON: 04/18/2024 Spiral axial unenhanced low-dose images were obtained through the chest. Images were reviewed using both narrow and wide window settings. This CT exam was performed using one or more following dose reduction techniques: Automated exposure control, adjustment of the mA and/or kV according to patient size, or use of iterative reconstruction technique. The heart is normal size. There is no pericardial effusion. Coronary artery disease is seen. There is no aortic aneurysm. There is atherosclerotic plaque at the aortic arch and proximal great vessels. There are similar small mediastinal lymph nodes. Mild endplate spurring and scoliotic curvature shoulder again seen. There is obstructive lung disease with airspace lucencies. There is minor scarring and/or atelectasis. No developing consolidation, pleural effusion or pneumothorax is seen. There are still multiple tiny pulmonary nodules which are unchanged. There is a potential new 5 mm nodule within the lingula abutting the pericardium on axial image 160. There is also a tiny nodules associated with the distal major fissure on the right (axial image 189 (which was not seen on the comparison though may be an intrapulmonary lymph node. Limited imaging through the upper abdomen shows no contributory findings. CT/CT lung screening low-dose IMPRESSION: OBSTRUCTIVE LUNG DISEASE WITH MINIMAL ATELECTASIS OR SCARRING. CONTINUED PULMONARY NODULARITY, MOSTLY STABLE THOUGH POTENTIALLY A COUPLE NEW NODULES, DESCRIBED. Lung RADS category 3 - probably benign Six-month low-dose CT follow-up suggested Impression dictated by: Ariella Ferraro M.D. 05/14/2025 11:37 AM Dictation Location: [place] [address] Electronically authenticated by: [id number] Y Date: 05/14/2025 11:37
== END 2025-05-14 09:22 | disposition home or self-care (01) ==
PROVIDERS: PCP Nurse Practitioner; Visit Provider Nurse Practitioner
DX: Z00.00 Encounter for general adult medical examination without abnormal findings (principal); Z12.31 Encounter for screening mammogram for malignant neoplasm of breast; J98.4 Other disorders of lung; J44.9 Chronic obstructive pulmonary disease, unspecified; Z80.8 Family history of malignant neoplasm of other organs or systems; F17.210 Nicotine dependence, cigarettes, uncomplicated
CPT/HCPCS: 71271; 77063; 77067